=== PATIENT | female | born 1950 | race Caucasian/White ===

== ENCOUNTER 2020-03-03 07:33 | Outpatient (REF) | payer MEDICARE, SELFPAY ==
[2020-03-03 09:16] LABS: MANUAL DIFF FLAG NO
[2020-03-03 09:35] LABS: Basophils Absolute Auto 0.1 X10*3/uL (0.0-0.2); Basophils Percent Auto 0.7 % (0-2); Eosinophils Absolute Auto 1.2 X10*3/uL (0.0-0.4); Eosinophils Percent Auto 14.3 % (0-4); Hematocrit 38.8 % (37-47); Hemoglobin 12.6 g/dl (12.0-16.0); Imm Gran Abs Auto 0.02 X10*3/uL (0.00-0.03); Imm Gran Pct Auto 0.2 % (0.0-0.4); Lymphocytes Absolute Auto 3.5 X10*3/uL (1.2-4.9); Lymphocytes Percent Auto 41.2 % (20-40); Mean Corpuscular HGB Conc 32.5 g/dl (31.0-35.0); Mean Corpuscular Hemoglobin 29.9 pg (27.0-33.0); Mean Corpuscular Volume 91.9 fL (80-98); Mean Platelet Volume 10.4 fL (9.4-12.3); Monocytes Absolute Auto 0.6 X10*3/uL (0.1-1.2); Monocytes Percent Auto 7.3 % (2-11); Neutrophils Absolute Auto 3.1 X10*3/uL (2.0-8.3); Neutrophils Percent Auto 36.3 % (45-73); Platelet Count 238 X10*3/uL (160-400); Red Blood Count 4.22 X10*6/uL (4.20-5.50); Red Cell Distribution Width 13.8 % (11.0-16.0); White Blood Count 8.4 X10*3/uL (4.8-10.8)
[2020-03-03 09:41] LABS: Alanine Aminotransferase 14 U/L (0-31); Albumin Level 4.7 g/dL (3.5-5.0); Alkaline Phosphatase 39 U/L (39-117); Anion Gap 11 (12-20); Aspartate Amino Transferase 19 U/L (5-31); Bilirubin Total 0.2 mg/dL (0.0-1.0); Blood Urea Nitrogen 16 mg/dL (9-16); Calcium 9.7 mg/dL (8.4-10.2); Carbon Dioxide 31 mmol/L (22-29); Chloride 101 mmol/L (96-108); Cholesterol 179 mg/dL; Estimated Glomerular Filt Rate 51; Glucose Fasting 113 mg/dL (60-99); HDL Cholesterol 59 mg/dL; Iron 68 mcg/dL (30-160); LDL Cholesterol Calculated 92 mg/dl; Percent Iron Saturation 18 % (15-50); Potassium 4.3 mmol/l (3.3-5.1); Sodium 139 mmol/L (135-145); Total Iron Binding Capacity 369 mcg/dL (228-428); Total Protein 7.6 g/dL (6.5-8.0); Triglycerides 144 mg/dL; Unsaturated Iron Binding 301 ug/dL
[2020-03-03 09:43] LABS: Glucose Urine UA NEG (NEG); Leukocyte Esterase Urine NEG (NEG); Nitrite Urine NEG (NEG); Urine Blood NEG (NEG); Urine Ketones NEG (NEG); Urine Protein NEG (NEG-TRACE)
[2020-03-03 09:47] LABS: Appearance Urine CLEAR; Color Urine YELLOW
[2020-03-03 09:52] LABS: Free T4 (Free Thyroxine) 0.94 ng/dL (0.71-1.85); Thyroid Stimulating Hormone 2.74 uIU/mL (0.32-4.0); Vitamin D 25-OH Total 30.9 ng/mL (>30)
[2020-03-03 10:03] LABS: Creatinine Urine 42.01 mg/dL; Microalbumin Urine < 5.0 mg/L
[2020-03-03 10:04] LABS: Folate 6.6 ng/mL (> or = 4.0); Vitamin B12 1996 pg/mL (200-900)
== END 2020-03-03 07:34 | disposition home or self-care (01) ==
LOC: HO.LAB 07:33
PROVIDERS: PCP Internal Medicine; Visit Provider Internal Medicine
DX: E11.22 Type 2 diabetes mellitus with diabetic chronic kidney disease (principal); I12.9 Hypertensive chronic kidney disease with stage 1 through stage 4 chronic kidney disease, or unspecified chronic kidney disease; N18.30 Chronic kidney disease, stage 3 unspecified; E78.00 Pure hypercholesterolemia, unspecified; E03.9 Hypothyroidism, unspecified; E66.9 Obesity, unspecified; D50.9 Iron deficiency anemia, unspecified; E53.8 Deficiency of other specified B group vitamins; E55.9 Vitamin D deficiency, unspecified
CPT/HCPCS: 36415; 80053; 80061; 81003; 82043; 82306; 82607; 82746; 83540; 84439; 84443; 85025

== ENCOUNTER 2020-09-02 07:32 | Outpatient (REF) | payer MEDICARE, MEDICAID, SELFPAY ==
[2020-09-02 08:19] LABS: MANUAL DIFF FLAG NO
[2020-09-02 08:31] LABS: Basophils Absolute Auto 0.1 X10*3/uL (0.0-0.2); Basophils Percent Auto 0.7 % (0-2); Eosinophils Absolute Auto 0.7 X10*3/uL (0.0-0.4); Eosinophils Percent Auto 10.5 % (0-4); Hematocrit 35.9 % (37-47); Hemoglobin 11.7 g/dl (12.0-16.0); Imm Gran Abs Auto 0.02 X10*3/uL (0.00-0.03); Imm Gran Pct Auto 0.3 % (0.0-0.4); Lymphocytes Absolute Auto 2.5 X10*3/uL (1.2-4.9); Lymphocytes Percent Auto 37.4 % (20-40); Mean Corpuscular HGB Conc 32.6 g/dl (31.0-35.0); Mean Corpuscular Hemoglobin 30.1 pg (27.0-33.0); Mean Corpuscular Volume 92.3 fL (80-98); Mean Platelet Volume 9.7 fL (9.4-12.3); Monocytes Absolute Auto 0.6 X10*3/uL (0.1-1.2); Monocytes Percent Auto 9.6 % (2-11); Neutrophils Absolute Auto 2.8 X10*3/uL (2.0-8.3); Neutrophils Percent Auto 41.5 % (45-73); Platelet Count 219 X10*3/uL (160-400); Red Blood Count 3.89 X10*6/uL (4.20-5.50); Red Cell Distribution Width 12.9 % (11.0-16.0); White Blood Count 6.7 X10*3/uL (4.8-10.8)
[2020-09-02 08:32] LABS: Glucose Urine UA NEG (NEG); Leukocyte Esterase Urine TRACE (NEG); Nitrite Urine NEG (NEG); PH 6.5 (5.0-8.0); Specific Gravity - Urine <= 1.005 (1.005-1.025); UACC Culture Trigger YES; Urine Blood NEG (NEG); Urine Ketones NEG (NEG); Urine Protein NEG (NEG-TRACE)
[2020-09-02 08:34] LABS: Appearance Urine CLEAR; Color Urine YELLOW
[2020-09-02 08:52] LABS: RBC Urine 0 /HPF (0); WBC Urine 0-2 /HPF (0-4)
[2020-09-02 09:08] LABS: Creatinine Urine 60.92 mg/dL; Microalbumin Urine < 5.0 mg/L
[2020-09-02 09:13] LABS: Free T4 (Free Thyroxine) 1.05 ng/dL (0.71-1.85); Thyroid Stimulating Hormone 0.68 uIU/mL (0.32-4.0); Vitamin D 25-OH Total 26.7 ng/mL (>30)
[2020-09-02 09:27] LABS: Alanine Aminotransferase 17 U/L (0-31); Albumin Level 4.3 g/dL (3.5-5.0); Alkaline Phosphatase 39 U/L (39-117); Anion Gap 12 (12-20); Aspartate Amino Transferase 23 U/L (5-31); Bilirubin Total < 0.2 mg/dL (0.0-1.0); Blood Urea Nitrogen 15 mg/dL (9-16); Calcium 9.4 mg/dL (8.4-10.2); Carbon Dioxide 28 mmol/L (22-29); Chloride 105 mmol/L (96-108); Cholesterol 174 mg/dL; Estimated Glomerular Filt Rate 51; Glucose Fasting 129 mg/dL (60-99); HDL Cholesterol 53 mg/dL; LDL Cholesterol Calculated 93 mg/dl; Potassium 4.8 mmol/L (3.3-5.1); Sodium 140 mmol/L (135-145); Total Protein 6.8 g/dL (6.5-8.0); Triglycerides 143 mg/dL
== END 2020-09-02 07:33 | disposition home or self-care (01) ==
LOC: HO.LAB 07:32
PROVIDERS: PCP Internal Medicine; Visit Provider Internal Medicine
DX: I12.9 Hypertensive chronic kidney disease with stage 1 through stage 4 chronic kidney disease, or unspecified chronic kidney disease (principal); E11.22 Type 2 diabetes mellitus with diabetic chronic kidney disease; N18.30 Chronic kidney disease, stage 3 unspecified; D50.9 Iron deficiency anemia, unspecified; E53.8 Deficiency of other specified B group vitamins; E78.00 Pure hypercholesterolemia, unspecified; E03.9 Hypothyroidism, unspecified; E66.9 Obesity, unspecified
CPT/HCPCS: 36415; 80053; 80061; 81001; 81003; 82043; 82306; 84439; 84443; 85025; 87086

== ENCOUNTER 2020-12-03 07:23 | Outpatient (REF) | payer MEDICARE, MEDICAID, SELFPAY ==
[2020-12-03 07:55] LABS: MANUAL DIFF FLAG NO
[2020-12-03 08:05] LABS: Estimated Average Glucose 117 mg/dL; Hemoglobin A1c % 5.7 %
[2020-12-03 08:07] LABS: Basophils Absolute Auto 0.1 X10*3/uL (0.0-0.2); Basophils Percent Auto 0.9 % (0-2); Eosinophils Absolute Auto 0.8 X10*3/uL (0.0-0.4); Eosinophils Percent Auto 11.3 % (0-4); Hematocrit 35.8 % (37-47); Imm Gran Abs Auto 0.01 X10*3/uL (0.00-0.03); Imm Gran Pct Auto 0.1 % (0.0-0.4); Lymphocytes Absolute Auto 3.2 X10*3/uL (1.2-4.9); Lymphocytes Percent Auto 45.9 % (20-40); Mean Corpuscular HGB Conc 33.5 g/dl (31.0-35.0); Mean Corpuscular Hemoglobin 30.6 pg (27.0-33.0); Mean Corpuscular Volume 91.3 fL (80-98); Mean Platelet Volume 9.6 fL (9.4-12.3); Monocytes Absolute Auto 0.5 X10*3/uL (0.1-1.2); Monocytes Percent Auto 7.1 % (2-11); Neutrophils Absolute Auto 2.4 X10*3/uL (2.0-8.3); Neutrophils Percent Auto 34.7 % (45-73); Platelet Count 219 X10*3/uL (160-400); Red Blood Count 3.92 X10*6/uL (4.20-5.50); Red Cell Distribution Width 13.2 % (11.0-16.0); White Blood Count 6.9 X10*3/uL (4.8-10.8)
[2020-12-03 08:19] LABS: Alanine Aminotransferase 15 U/L (0-31); Albumin Level 4.4 g/dL (3.5-5.0); Alkaline Phosphatase 36 U/L (39-117); Anion Gap 11 (12-20); Aspartate Amino Transferase 20 U/L (5-31); Bilirubin Total 0.2 mg/dL (0.0-1.0); Blood Urea Nitrogen 17 mg/dL (9-16); Calcium 9.7 mg/dL (8.4-10.2); Carbon Dioxide 30 mmol/L (22-29); Chloride 105 mmol/L (96-108); Cholesterol 183 mg/dL; Estimated Glomerular Filt Rate 46; Glucose Fasting 115 mg/dL (60-99); HDL Cholesterol 49 mg/dL; LDL Cholesterol Calculated 101 mg/dl; Potassium 4.7 mmol/L (3.3-5.1); Sodium 141 mmol/L (135-145); Triglycerides 166 mg/dL
[2020-12-03 08:43] LABS: Free T4 (Free Thyroxine) 0.93 ng/dL (0.71-1.85); Vitamin D 25-OH Total 28.3 ng/mL (>30)
[2020-12-03 08:56] LABS: Folate 8.4 ng/mL (> or = 4.0); Vitamin B12 1914 pg/mL (200-900)
[2020-12-03 09:09] LABS: Erythrocyte Sedimentation Rate 16 MM/HR (0-20)
[2020-12-03 10:01] LABS: Appearance Urine CLEAR; Color Urine YELLOW; Glucose Urine UA NEG (NEG); Leukocyte Esterase Urine 1+ (NEG); Nitrite Urine NEG (NEG); PH 6.5 (5.0-8.0); UACC Culture Trigger YES; Urine Blood NEG (NEG); Urine Ketones NEG (NEG); Urine Protein NEG (NEG-TRACE)
[2020-12-03 10:16] LABS: Creatinine Urine 67.59 mg/dL; Microalbumin Urine < 5.0 mg/L
[2020-12-03 10:20] LABS: RBC Urine 0 /HPF (0); Squamous Epithelial Cell Urine 1+ /LPF; WBC Urine 0-2 /HPF (0-4)
[2020-12-03 10:21] LABS: Bacteria Urine TRACE /LPF; Mucus Urine 1+ /LPF
== END 2020-12-03 07:24 | disposition home or self-care (01) ==
LOC: HO.LAB 07:23
PROVIDERS: Nurse Practitioner Family; PCP Internal Medicine; Visit Provider Internal Medicine
DX: E78.00 Pure hypercholesterolemia, unspecified (principal); E11.21 Type 2 diabetes mellitus with diabetic nephropathy; I12.9 Hypertensive chronic kidney disease with stage 1 through stage 4 chronic kidney disease, or unspecified chronic kidney disease; N18.31 Chronic kidney disease, stage 3a; E11.22 Type 2 diabetes mellitus with diabetic chronic kidney disease; D50.9 Iron deficiency anemia, unspecified; E53.8 Deficiency of other specified B group vitamins; E55.9 Vitamin D deficiency, unspecified; E03.9 Hypothyroidism, unspecified; E66.9 Obesity, unspecified; R22.0 Localized swelling, mass and lump, head
CPT/HCPCS: 36415; 80053; 80061; 81001; 81003; 82043; 82306; 82607; 82746; 83036; 84439; 84443; 85025; 85652; 87086

== ENCOUNTER 2021-01-06 10:15 | Outpatient (REF) | payer MEDICARE, MEDICAID, SELFPAY ==
--- NOTE | ~2021-01-06 | MM_ITS ---
EXAMINATION: MM SCREENING DIGITAL BREAST TOMOSYNTHESIS, BILATERAL CLINICAL INFORMATION: Screening. Asymptomatic. The lifetime risk of breast cancer based on the Tyrer-Cuzick Model is 4%. COMPARISON: Mammography: 03/05/2019, 01/21/2016, 10/22/2014 TECHNIQUE: Digital breast tomosynthesis is performed in both the craniocaudal and mediolateral oblique views along with computer-aided detection (CAD). Synthesized 2D images are generated from the tomosynthesis. FINDINGS: There are scattered areas of fibroglandular density (ACR BI-RADS breast composition Category b). There are no significant masses, abnormal calcifications, or other abnormalities. Parenchymal pattern is similar to prior exams. There is no developing density. No significant changes. MM/MM tomosynthesis screening BI IMPRESSION: No mammographic evidence of malignancy. ASSESSMENT: BI-RADS 1: Negative RECOMMENDATION: Routine annual mammography screening. This patient's information was entered into a reminder system with a target due date for their next mammogram.
--- NOTE | ~2021-01-06 | MM_ITS ---
EXAMINATION: BONE DENSITOMETRY CLINICAL INDICATION: Asymptomatic menopausal state. COMPARISON: None (current study represents initial baseline exam). TECHNIQUE: Using a [employer] DXA System (software version: 13.1) manufactured by [employer], dual-energy x-ray absorptiometry was performed of the lumbar spine and left hip. The images are of good technical quality. Summary results are attached. FINDINGS: AP SPINE L1-L4: BMD 1.488 g/cm2, Z-score 4.0, T-score 2.6, normal. LEFT FEMUR, NECK: BMD 0.996 g/cm2, Z-score 1.3, T-score -0.3, normal. LEFT FEMUR, TOTAL: BMD 1.153 g/cm2, Z-score 2.5, T-score 1.2, normal. IDENTIFIED RISK FACTORS: Early menopause, secondary osteoporosis. HISTORY OF FRACTURE: None listed. MEDICATIONS: Calcium supplements or multivitamin, vitamin D. MM/XR DEXA axial skeleton IMPRESSION: 1. DIAGNOSIS: Normal bone density based on the lowest T-score value of -0.3 in the femoral neck applying World Health Organization criteria. 2. 10-YEAR FRACTURE RISK PREDICTION, FRAX: Major osteoporotic fracture (clinical spine, forearm, hip or shoulder) 4.0%. Hip fracture 0.3%. 3. Treatment Recommendations: NOF guidelines recommend consideration for treatment in postmenopausal women and men age 50 and older presenting with the following: -A hip or vertebral (clinical or morphometric) fracture. -T-score less than or equal to -2.5 at the femoral neck or spine after appropriate evaluation to exclude secondary causes. -Low bone mass at the hip or spine and a 10-year fracture probability by FRAX of greater than or equal to 3% for hip fracture or greater than or equal to 20% for major osteoporotic fracture based on the [place] adapted WHO algorithm. 4. Other Recommendations: All treatment decisions require clinical judgment and consideration of individual patient factors, including patient preferences, comorbidities, previous drug use, risk factors not captured in the FRAX model (e.g. frailty, falls, vitamin D deficiency, increased bone turnover, interval significant decline in bone density) and possible under or overestimation of fracture risk by FRAX. FUTURE SCAN RECOMMENDATION: People with diagnosed cases of osteoporosis or at high risk for fracture should have regular bone mineral density tests. For patients eligible for Medicare, routine testing is allowed once every 2 years. The testing frequency can be increased to one year for patients who have rapidly progressing disease, those who are receiving or discontinuing medical therapy to restore bone mass, or have additional risk factors.
== END 2021-01-06 10:16 | disposition home or self-care (01) ==
LOC: HO.MAMMO 10:15
PROVIDERS: Visit Provider Internal Medicine
DX: Z13.820 Encounter for screening for osteoporosis (principal); Z78.0 Asymptomatic menopausal state; Z12.31 Encounter for screening mammogram for malignant neoplasm of breast
CPT/HCPCS: 77063; 77067; 77080

== ENCOUNTER 2021-03-11 08:33 | Outpatient (REF) | payer MEDICARE, MEDICAID, SELFPAY ==
[2021-03-11 08:57] LABS: MANUAL DIFF FLAG NO
[2021-03-11 09:58] LABS: Basophils Absolute Auto 0.1 X10*3/uL (0.0-0.2); Basophils Percent Auto 0.9 % (0-2); Eosinophils Absolute Auto 0.7 X10*3/uL (0.0-0.4); Eosinophils Percent Auto 11.2 % (0-4); Hemoglobin 12.4 g/dl (12.0-16.0); Imm Gran Abs Auto 0.02 X10*3/uL (0.00-0.03); Imm Gran Pct Auto 0.3 % (0.0-0.4); Lymphocytes Absolute Auto 2.6 X10*3/uL (1.2-4.9); Lymphocytes Percent Auto 39.8 % (20-40); Mean Corpuscular HGB Conc 32.6 g/dl (31.0-35.0); Mean Corpuscular Hemoglobin 29.7 pg (27.0-33.0); Mean Corpuscular Volume 91.1 fL (80.0-98.0); Mean Platelet Volume 10.1 fL (9.4-12.3); Monocytes Absolute Auto 0.6 X10*3/uL (0.1-1.2); Monocytes Percent Auto 8.7 % (2-11); Neutrophils Absolute Auto 2.5 x10*3/uL (2.0-8.3); Neutrophils Percent Auto 39.1 % (45-73); Platelet Count 229 X10*3/uL (160-400); Red Blood Count 4.17 X10*6/uL (4.20-5.50); Red Cell Distribution Width 12.5 % (11.0-16.0); White Blood Count 6.5 X10*3/uL (4.8-10.8)
[2021-03-11 10:11] LABS: Estimated Average Glucose 123 mg/dL; Hemoglobin A1c % 5.9 %
[2021-03-11 10:30] LABS: Alanine Aminotransferase 17 U/L (0-31); Albumin Level 4.4 g/dL (3.5-5.0); Alkaline Phosphatase 39 U/L (39-117); Anion Gap 12 (12-20); Aspartate Amino Transferase 22 U/L (5-31); Bilirubin Total 0.3 mg/dL (0.0-1.0); Blood Urea Nitrogen 17 mg/dL (9-16); Calcium 9.7 mg/dL (8.4-10.2); Carbon Dioxide 29 mmol/L (22-29); Chloride 104 mmol/L (96-108); Cholesterol 188 mg/dL; Estimated Glomerular Filt Rate 49; Glucose Fasting 125 mg/dL (60-99); HDL Cholesterol 58 mg/dL; LDL Cholesterol Calculated 97 mg/dl; Potassium 4.7 mmol/L (3.3-5.1); Sodium 140 mmol/L (135-145); Total Protein 7.2 g/dL (6.5-8.0); Triglycerides 165 mg/dL
[2021-03-11 10:41] LABS: Appearance Urine CLEAR; Color Urine YELLOW; Glucose Urine UA NEG (NEG); Leukocyte Esterase Urine 1+ (NEG); Nitrite Urine NEG (NEG); Specific Gravity - Urine 1.025 (1.005-1.025); UACC Culture Trigger YES; Urine Blood TRACE (NEG); Urine Ketones NEG (NEG); Urine Protein NEG (NEG-TRACE)
[2021-03-11 10:50] LABS: Free T4 (Free Thyroxine) 0.89 ng/dL (0.71-1.85); Thyroid Stimulating Hormone 1.07 uIU/mL (0.32-4.0); Vitamin D 25-OH Total 24.5 ng/mL (>30)
[2021-03-11 11:19] LABS: RBC Urine 0 /HPF (0); WBC Urine 0-2 /HPF (0-4)
[2021-03-11 11:20] LABS: Squamous Epithelial Cell Urine 1+ /LPF
[2021-03-11 11:27] LABS: Creatinine Urine 167.63 mg/dL; Microalbum/Creatinine Ratio Ur 5.3 ug/mg cr
== END 2021-03-11 08:34 | disposition home or self-care (01) ==
LOC: HO.LAB 08:33
PROVIDERS: PCP Internal Medicine; Visit Provider Internal Medicine
DX: E03.9 Hypothyroidism, unspecified (principal); E55.9 Vitamin D deficiency, unspecified; I10 Essential (primary) hypertension; E78.00 Pure hypercholesterolemia, unspecified; E11.9 Type 2 diabetes mellitus without complications
CPT/HCPCS: 36415; 80053; 80061; 81001; 81003; 82043; 82306; 83036; 84439; 84443; 85025; 87086; 87088; 87186

== ENCOUNTER 2021-03-24 09:35 | Outpatient (REF) | payer MEDICARE, MEDICAID, SELFPAY ==
--- NOTE | ~2021-03-24 | XR_ITS ---
EXAMINATION: XR SHOULDER, LEFT CLINICAL INFORMATION: Pain in left shoulder. COMPARISON: None TECHNIQUE: AP external rotation, Grashey, scapular Y, and axillary views of the left shoulder. FINDINGS: There is no fracture or malalignment. There are small marginal osteophytes in the inferior glenohumeral joint. There is no joint space narrowing. There is a cortical defect in the greater tuberosity with an adjacent subchondral degenerative cyst. There is mild osteoarthritis of the acromioclavicular joint. 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 Degenerative changes in the greater tuberosity.
--- NOTE | ~2021-03-24 | XR_ITS ---
EXAMINATION: XR LUMBOSACRAL SPINE CLINICAL INFORMATION: Low back pain. COMPARISON: None TECHNIQUE: AP and lateral views of the lumbosacral spine are obtained. A lateral coned-down view of the lumbosacral junction is obtained. FINDINGS: There is no acute fracture or subluxation. There is mild multilevel degenerative disc disease. There are small anterior marginal osteophytes from L2 to S1. There is mild disc space narrowing at L3-L4. There is mild bilateral facet arthropathy in the lower lumbar levels. There are scattered calcifications in the abdominal aorta. There is no definite aneurysmal dilatation. XR/XR lumbar spine 2-3V IMPRESSION: Mild multilevel degenerative disc disease.
== END 2021-03-24 09:36 | disposition home or self-care (01) ==
LOC: HO.XRAY 09:35
PROVIDERS: PCP Internal Medicine; Visit Provider Internal Medicine
DX: M25.512 Pain in left shoulder (principal); M54.50 Low back pain, unspecified
CPT/HCPCS: 72100; 73030

== ENCOUNTER 2021-04-20 10:14 | Outpatient (REF) | payer MEDICARE, MEDICAID, SELFPAY ==
--- NOTE | ~2021-04-20 | MR_ITS ---
EXAMINATION: MRI SHOULDER WITHOUT CONTRAST, LEFT CLINICAL INFORMATION: Left shoulder pain and decreased range of motion. COMPARISON: Left shoulder radiographs dated 03/24/2021. TECHNIQUE: Multisequence MR imaging of the left shoulder was obtained without contrast on a high-field strength scanner. FINDINGS: ROTATOR CUFF: Supraspinatus tendinosis with focal anterior articular surface partial tearing measuring 0.5 x 0.5 cm (AP by ML). Posterior bursal surface partial tearing measuring 0.9 x 0.8 cm (AP by ML). Distal bursal surface partial tearing extends to the anterior aspect of the infraspinatus tendon. No definite full-thickness rotator cuff tendon defect. No muscle atrophy or fatty infiltration. BICEPS: Normal. CORACOACROMIAL ARCH: The undersurface of the acromion is flat with lateral downsloping and tiny subacromial spurs. Mild acromioclavicular osteoarthritis. Mild fluid within the subacromial-subdeltoid bursa, consistent with mild bursitis. LABRUM/CAPSULE: Normal. GLENOHUMERAL JOINT/MARROW: Small glenohumeral joint effusion. MR/MR shoulder LT wo con IMPRESSION: 1. Supraspinatus tendinosis with anterior articular surface partial tearing measuring 0.5 x 0.5 cm. Posterior bursal surface partial tearing measuring 0.9 x 0.8 cm with extension to the anterior aspect of the infraspinatus tendon. No full-thickness rotator cuff tendon defect. 2. Mild acromioclavicular osteoarthritis with lateral downsloping of the acromion and tiny subacromial spurs. 3. Mild subacromial-subdeltoid bursitis. 4. Small glenohumeral joint effusion.
== END 2021-04-20 10:15 | disposition home or self-care (01) ==
LOC: HO.MRI 10:14
PROVIDERS: PCP Internal Medicine; Visit Provider Nurse Practitioner Acute Care
DX: M25.512 Pain in left shoulder (principal)
CPT/HCPCS: 73221

== ENCOUNTER → 2021-05-13 09:43 | Outpatient (BNVA) | payer MEDICARE, MEDICAID, SELFPAY | PROVIDERS: PCP Internal Medicine; Visit Provider Physician Assistant | DX: M19.012 Primary osteoarthritis, left shoulder (principal) | CPT/HCPCS: 99202 ==

== ENCOUNTER 2021-07-22 07:20 | Outpatient (REF) | payer MEDICARE, MEDICAID, SELFPAY ==
[2021-07-22 07:39] LABS: MANUAL DIFF FLAG NO
[2021-07-22 08:03] LABS: Basophils Absolute Auto 0.1 X10*3/uL (0.0-0.2); Eosinophils Absolute Auto 0.8 X10*3/uL (0.0-0.4); Eosinophils Percent Auto 11.5 % (0-4); Hematocrit 36.2 % (37.0-47.0); Hemoglobin 11.9 g/dl (12.0-16.0); Imm Gran Abs Auto 0.02 X10*3/uL (0.00-0.03); Imm Gran Pct Auto 0.3 % (0.0-0.4); Lymphocytes Absolute Auto 3.3 X10*3/uL (1.2-4.9); Lymphocytes Percent Auto 46.6 % (20-40); Mean Corpuscular HGB Conc 32.9 g/dl (31.0-35.0); Mean Corpuscular Hemoglobin 29.7 pg (27.0-33.0); Mean Corpuscular Volume 90.3 fL (80.0-98.0); Mean Platelet Volume 9.7 fL (9.4-12.3); Monocytes Absolute Auto 0.5 X10*3/uL (0.1-1.2); Monocytes Percent Auto 6.6 % (2-11); Neutrophils Absolute Auto 2.4 x10*3/uL (2.0-8.3); Platelet Count 226 X10*3/uL (160-400); Red Blood Count 4.01 X10*6/uL (4.20-5.50); Red Cell Distribution Width 12.9 % (11.0-16.0); White Blood Count 7.1 X10*3/uL (4.8-10.8)
[2021-07-22 08:13] LABS: Estimated Average Glucose 117 mg/dL; Hemoglobin A1c % 5.7 %
[2021-07-22 08:19] LABS: Appearance Urine CLEAR; Color Urine STRAW; Glucose Urine UA NEG (NEG); Leukocyte Esterase Urine TRACE (NEG); Nitrite Urine NEG (NEG); PH 6.5 (5.0-8.0); Specific Gravity - Urine <= 1.005 (1.005-1.025); UACC Culture Trigger YES; Urine Blood NEG (NEG); Urine Ketones NEG (NEG); Urine Protein NEG (NEG-TRACE)
[2021-07-22 08:27] LABS: Alanine Aminotransferase 14 U/L (0-31); Albumin Level 4.1 g/dL (3.5-5.0); Alkaline Phosphatase 35 U/L (39-117); Anion Gap 13 (12-20); Aspartate Amino Transferase 20 U/L (5-31); Bilirubin Total 0.2 mg/dL (0.0-1.0); Blood Urea Nitrogen 14 mg/dL (9-16); Calcium 9.3 mg/dL (8.4-10.2); Carbon Dioxide 28 mmol/L (22-29); Chloride 104 mmol/L (96-108); Cholesterol 185 mg/dL; Estimated Glomerular Filt Rate 51; Glucose Fasting 116 mg/dL (60-99); HDL Cholesterol 53 mg/dL; LDL Cholesterol Calculated 101 mg/dl; Potassium 4.5 mmol/L (3.3-5.1); Sodium 140 mmol/L (135-145); Total Protein 6.7 g/dL (6.5-8.0); Triglycerides 159 mg/dL
[2021-07-22 08:39] LABS: Creatinine Urine 56.47 mg/dL; Microalbumin Urine < 5.0 mg/L
[2021-07-22 08:47] LABS: TSH reflex Free T4 0.62 uIU/mL (0.32-4.0); Vitamin D 25-OH Total 40.6 ng/mL (>30)
[2021-07-22 08:48] LABS: RBC Urine 0 /HPF (0); Squamous Epithelial Cell Urine TRACE /LPF; WBC Urine 0-2 /HPF (0-4)
[2021-07-22 09:08] LABS: Folate 5.6 ng/mL (> or = 4.0); Vitamin B12 1727 pg/mL (200-900)
== END 2021-07-22 07:21 | disposition home or self-care (01) ==
LOC: HO.LAB 07:20
PROVIDERS: PCP Internal Medicine; Visit Provider Internal Medicine
DX: E78.00 Pure hypercholesterolemia, unspecified (principal); E11.9 Type 2 diabetes mellitus without complications; E55.9 Vitamin D deficiency, unspecified; E53.8 Deficiency of other specified B group vitamins; I10 Essential (primary) hypertension
CPT/HCPCS: 36415; 80053; 80061; 81001; 82043; 82306; 82607; 82746; 83036; 84443; 85025; 87086

== ENCOUNTER 2021-11-01 10:37 | Outpatient (REF) | payer MEDICARE, MEDICAID, SELFPAY ==
--- NOTE | 2021-11-01 10:54 | ECG_ITS ---
Test Reason : PRE-OP Blood Pressure : / mmHG Vent. Rate : 073 BPM Atrial Rate : 073 BPM P-R Int : 142 ms QRS Dur : 084 ms QT Int : 376 ms P-R-T Axes : 069 050 080 degrees QTc Int : 414 ms Normal sinus rhythm Nonspecific ST and T wave abnormality Abnormal ECG When compared with ECG of 17-MAY-2013 00:00, No significant change was found Referred By: Jenny Downey Electronically Signed By:DAYSI REA
[2021-11-01 11:32] LABS: Hematocrit 37.2 % (37.0-47.0); Hemoglobin 12.3 g/dl (12.0-16.0); Mean Corpuscular HGB Conc 33.1 g/dl (31.0-35.0); Mean Corpuscular Hemoglobin 30.3 pg (27.0-33.0); Mean Corpuscular Volume 91.6 fL (80.0-98.0); Mean Platelet Volume 10.1 fL (9.4-12.3); Platelet Count 226 X10*3/uL (160-400); Red Blood Count 4.06 X10*6/uL (4.20-5.50); Red Cell Distribution Width 12.9 % (11.0-16.0); White Blood Count 8.2 X10*3/uL (4.8-10.8)
[2021-11-01 11:39] LABS: INTERNATIONAL NORM RATIO 0.8 (0.9-1.1); Prothrombin Time 9.6 SEC (10.0-13.1)
[2021-11-01 11:49] LABS: Anion Gap 13 (12-20); Blood Urea Nitrogen 17 mg/dL (9-16); Calcium 9.3 mg/dL (8.4-10.2); Carbon Dioxide 24 mmol/L (22-29); Chloride 109 mmol/L (96-108); Estimated Glomerular Filt Rate 48; Glucose Random 82 mg/dL (60-115); Potassium 4.6 mmol/L (3.3-5.1); Sodium 141 mmol/L (135-145)
== END 2021-11-01 10:38 | disposition home or self-care (01) ==
LOC: HO.LAB 10:37
PROVIDERS: PCP Nurse Practitioner Family; Visit Provider Internal Medicine
DX: Z01.818 Encounter for other preprocedural examination (principal)
CPT/HCPCS: 36415; 80048; 85027; 85610; 93005

== ENCOUNTER 2022-05-22 08:11 | Outpatient (REF) | payer OTHER, SELFPAY ==
[2022-05-22 08:21] LABS: MANUAL DIFF FLAG NO
[2022-05-22 08:34] LABS: Basophils Absolute Auto 0.1 X10*3/uL (0.0-0.2); Basophils Percent Auto 0.9 % (0-2); Eosinophils Absolute Auto 0.8 X10*3/uL (0.0-0.4); Eosinophils Percent Auto 9.8 % (0-4); Hematocrit 36.9 % (37.0-47.0); Hemoglobin 12.2 g/dl (12.0-16.0); Imm Gran Abs Auto 0.02 X10*3/uL (0.00-0.03); Imm Gran Pct Auto 0.3 % (0.0-0.4); Lymphocytes Percent Auto 38.3 % (20-40); Mean Corpuscular HGB Conc 33.1 g/dl (31.0-35.0); Mean Corpuscular Hemoglobin 29.7 pg (27.0-33.0); Mean Corpuscular Volume 89.8 fL (80.0-98.0); Mean Platelet Volume 9.5 fL (9.4-12.3); Monocytes Absolute Auto 0.6 X10*3/uL (0.1-1.2); Monocytes Percent Auto 7.7 % (2-11); Neutrophils Absolute Auto 3.4 x10*3/uL (2.0-8.3); Platelet Count 212 X10*3/uL (160-400); Red Blood Count 4.11 X10*6/uL (4.20-5.50); Red Cell Distribution Width 12.4 % (11.0-16.0); White Blood Count 7.9 X10*3/uL (4.8-10.8)
[2022-05-22 08:38] LABS: Estimated Average Glucose 114 mg/dL; Hemoglobin A1c % 5.6 %
[2022-05-22 09:08] LABS: Alanine Aminotransferase 12 U/L (0-31); Albumin Level 4.2 g/dL (3.5-5.0); Alkaline Phosphatase 38 U/L (39-117); Anion Gap 12 (12-20); Aspartate Amino Transferase 18 U/L (5-31); Bilirubin Total 0.4 mg/dL (0.0-1.0); Blood Urea Nitrogen 20 mg/dL (9-16); Calcium 9.6 mg/dL (8.4-10.2); Carbon Dioxide 28 mmol/L (22-29); Chloride 105 mmol/L (96-108); Cholesterol 182 mg/dL; Estimated Glomerular Filt Rate 51; Glucose Fasting 116 mg/dL (60-99); HDL Cholesterol 52 mg/dL; LDL Cholesterol Calculated 101 mg/dl; Potassium 4.1 mmol/L (3.3-5.1); Sodium 141 mmol/L (135-145); Total Protein 6.5 g/dL (6.5-8.0); Triglycerides 145 mg/dL
[2022-05-22 09:27] LABS: Free T4 (Free Thyroxine) 1.13 ng/dL (0.71-1.85); Thyroid Stimulating Hormone 0.64 uIU/mL (0.32-4.0); Vitamin D 25-OH Total 55.4 ng/mL (>30)
[2022-05-22 09:34] LABS: Appearance Urine Clear; Color Urine Yellow; Glucose Urine UA Negative (Negative); Leukocyte Esterase Urine Negative (Negative); Nitrite Urine Negative (Negative); Urine Blood Negative (Negative); Urine Ketones Negative (Negative); Urine Protein Negative (Neg-Trace)
[2022-05-22 09:57] LABS: Creatinine Urine 52.59 mg/dL; Microalbumin Urine < 5.0 mg/L
== END 2022-05-22 08:12 | disposition home or self-care (01) ==
LOC: HO.LAB 08:11
PROVIDERS: PCP Internal Medicine; Visit Provider Internal Medicine
DX: E03.9 Hypothyroidism, unspecified (principal); E11.9 Type 2 diabetes mellitus without complications; I10 Essential (primary) hypertension; E55.9 Vitamin D deficiency, unspecified; E78.00 Pure hypercholesterolemia, unspecified
CPT/HCPCS: 36415; 80053; 80061; 81003; 82043; 82306; 83036; 84439; 84443; 85025

== ENCOUNTER 2022-09-23 07:35 | Outpatient (REF) | payer OTHER, SELFPAY ==
[2022-09-23 08:20] LABS: MANUAL DIFF FLAG NO
[2022-09-23 08:30] LABS: Basophils Absolute Auto 0.1 X10*3/uL (0.0-0.2); Basophils Percent Auto 0.9 % (0-2); Eosinophils Absolute Auto 0.7 X10*3/uL (0.0-0.4); Eosinophils Percent Auto 11.1 % (0-4); Hematocrit 35.8 % (37.0-47.0); Hemoglobin 11.9 g/dl (12.0-16.0); Imm Gran Abs Auto 0.01 X10*3/uL (0.00-0.03); Imm Gran Pct Auto 0.2 % (0.0-0.4); Lymphocytes Absolute Auto 2.5 X10*3/uL (1.2-4.9); Lymphocytes Percent Auto 38.6 % (20-40); Mean Corpuscular HGB Conc 33.2 g/dl (31.0-35.0); Mean Corpuscular Hemoglobin 30.6 pg (27.0-33.0); Mean Platelet Volume 9.5 fL (9.4-12.3); Monocytes Absolute Auto 0.6 X10*3/uL (0.1-1.2); Neutrophils Absolute Auto 2.6 x10*3/uL (2.0-8.3); Neutrophils Percent Auto 40.2 % (45-73); Platelet Count 219 X10*3/uL (160-400); Red Blood Count 3.89 X10*6/uL (4.20-5.50); Red Cell Distribution Width 13.1 % (11.0-16.0); White Blood Count 6.4 X10*3/uL (4.8-10.8)
[2022-09-23 08:40] LABS: Estimated Average Glucose 114 mg/dL; Hemoglobin A1c % 5.6 %
[2022-09-23 09:09] LABS: Alanine Aminotransferase 12 U/L (0-31); Albumin Level 4.2 g/dL (3.5-5.0); Alkaline Phosphatase 34 U/L (39-117); Anion Gap 10 (12-20); Aspartate Amino Transferase 18 U/L (5-31); Bilirubin Total 0.4 mg/dL (0.0-1.0); Blood Urea Nitrogen 18 mg/dL (9-16); Calcium 9.6 mg/dL (8.4-10.2); Carbon Dioxide 27 mmol/L (22-29); Chloride 106 mmol/L (96-108); Cholesterol 159 mg/dL; Estimated Glomerular Filt Rate 52; Glucose Fasting 120 mg/dL (60-99); HDL Cholesterol 50 mg/dL; LDL Cholesterol Calculated 90 mg/dl; Potassium 4.1 mmol/L (3.3-5.1); Sodium 139 mmol/L (135-145); Total Protein 7.1 g/dL (6.5-8.0); Triglycerides 96 mg/dL
[2022-09-23 09:26] LABS: Free T4 (Free Thyroxine) 1.09 ng/dL (0.71-1.85); Thyroid Stimulating Hormone 0.66 uIU/mL (0.32-4.0); Vitamin D 25-OH Total 75.6 ng/mL (>30)
[2022-09-23 09:34] LABS: Folate 6.1 ng/mL (> or = 4.0); Vitamin B12 > 2000 pg/mL (200-900)
[2022-09-23 09:46] LABS: Appearance Urine Clear; Color Urine Yellow; Glucose Urine UA Negative (Negative); Leukocyte Esterase Urine Small (1+) (Negative); Nitrite Urine Negative (Negative); PH 5.5 (5.0-9.0); Specific Gravity - Urine 1.015 (1.005-1.025); UMIC TRIGGER UACC YES; Urine Blood Negative (Negative); Urine Ketones Negative (Negative); Urine Protein Negative (Neg-Trace)
[2022-09-23 09:56] LABS: Bacteria Urine None Seen (None Seen); Hyaline Casts Urine 0-2 /LPF (0-2); RBC Urine 0-2 /HPF (0-2); Squamous Epithelial Cell Urine 0-2 /HPF (0-2); UACC Culture Trigger YES; WBC Urine 0-5 /HPF (0-5)
[2022-09-23 10:24] LABS: Creatinine Urine 110.86 mg/dL; Microalbum/Creatinine Ratio Ur 6.3 ug/mg cr
== END 2022-09-23 07:36 | disposition home or self-care (01) ==
LOC: HO.LAB 07:35
PROVIDERS: PCP Internal Medicine; Visit Provider Internal Medicine
DX: I10 Essential (primary) hypertension (principal); E11.9 Type 2 diabetes mellitus without complications; E55.9 Vitamin D deficiency, unspecified; E03.9 Hypothyroidism, unspecified; E53.8 Deficiency of other specified B group vitamins; E78.00 Pure hypercholesterolemia, unspecified; R82.90 Unspecified abnormal findings in urine
CPT/HCPCS: 36415; 80053; 80061; 81001; 82043; 82306; 82607; 82746; 83036; 84439; 84443; 85025; 87086

== ENCOUNTER 2023-01-10 16:13 | Outpatient (AMB) | payer OTHER, SELFPAY ==
--- NOTE | 2023-01-10 16:14 | MHC.PC.OV ---
Vital Signs 01/10/23 16:15 Height 4 ft 9 in Weight 152 lb BMI 32.9 BP 116/78 Blood Pressure Location Lt brachial Position Sitting Pulse 83 Pulse Source Pulse Oximeter Pulse Oximetry (%) 96 Oxygen Delivery Method Room Air Intake Visit Reasons: follow up [employer] Required: No Accompanied by: Self / Same As Patient Allergies ibuprofen [IBUPROFEN] Allergy (Unknown, Verified 01/10/23 16:34) swelling BuPROPion HCl Allergy (Unknown, Uncoded 01/10/23 16:34) unknown Cortisone Allergy (Unknown, Uncoded 01/10/23 16:34) Unknown Medication List - Last Reconciled 01/10/23 by Rahul Beaulieu MD cetirizine (Zyrtec) 10 mg PO DAILY PRN 90 days cholecalciferol (vitamin D3) 50 mcg PO DAILY 90 days cyanocobalamin (vitamin B-12) 500 mcg PO DAILY dextromethorphan-guaifenesin 30-600 mg (Mucinex DM) 1 tab PO Q12H PRN 15 days diclofenac sodium 1% (Voltaren Arthritis Pain) 4 grams topical QID enalapril maleate 2.5 mg PO DAILY 90 days ferrous sulfate 325 mg PO DAILY fluticasone propionate 50 mcg/actuation 1 spray intranasal DAILY 30 days levothyroxine 100 mcg PO DAILY 90 days lidocaine 5% 1 patch topical DAILY linagliptin-metformin 2.5-500 mg (Jentadueto) 1 tab PO BID lovastatin 40 mg PO DAILY 90 days naproxen 500 mg PO BID PRN 30 days omeprazole 20 mg PO DAILY 30 days sertraline 200 mg (2 x 100 mg) PO DAILY tramadol 50 mg PO Q12H PRN 30 days trazodone 200 mg (2 x 100 mg) PO BEDTIME PRN 90 days Tobacco use date assessed: 01/10/23 Fall risk assessment: No Falls in past year Last assessed Fall Risk: 01/10/23 Dental Screening Dental Screen Date: 01/10/23 Did you have a dental visit in the last 12 months?: No Did you have a dental problem in the last 6 months where you did not have access to dental care?: No Was dental information given to patient?: No HPI follow up HPI Details Patient comes in today for her follow up visit - was last seen in May 2022 States that she has been experiencing increased pain over her lower back and legs lately Has also been experiencing some constipation recently and states that her stomach feels uncomfortable and bloated often States that she has been experiencing frequent diffuse lower abdominal pain for a few weeks now Had some bowel movement yesterday but states that she was not able to pass out a lot of stool then She denies any headaches or dizziness Denies any chest pains, no increased SOB No nausea/vomiting Denies any acute urinary symptoms currently [facility] Medical History (Updated 01/12/23 @ 05:28 by Rahul Beaulieu MD) Constipation Abdominal pain Menopause GERD (gastroesophageal reflux disease) Diabetes Cervical lymphadenitis Depression Low back pain Obesity (BMI 30-39.9) Primary insomnia Vitamin D deficiency Acquired hypothyroidism Primary osteoarthritis, left shoulder Asthma Vitamin B12 deficiency Iron deficiency anemia Benign essential hypertension Pure hypercholesterolemia Chronic kidney disease (CKD), stage III (moderate) Type 2 diabetes mellitus with diabetic chronic kidney disease Surgical History History of lipoma History of colonoscopy History of carpal tunnel release Family History Father Advanced cardiac disease Diabetes Mother Lung cancer Family/Other Diabetes Hypertension High cholesterol Social History Housing: House Alcohol intake: never Patient Tobacco Use Status: Former Tobacco user Tobacco use type: Cigarette e-Cigarette/Vaping Use: Never Used Second Hand Smoke Exposure: Yes service: No Current occupational status: retired Cognitive needs: No Hearing needs: No Vision needs: Yes Questionnaire PHQ-9 Over the last 2 weeks, how often have you been bothered by any of the following problems? 1. Little interest or pleasure in doing things: not at all 2. Feeling down, depressed, or hopeless: not at all 3. Trouble falling or staying asleep, or sleeping too much: not at all 4. Feeling tired or having little energy: not at all 5. Poor appetite or overeating: not at all 6. Feeling bad about yourself - or that you are a failure or have let yourself or your family down: not at all 7. Trouble concentrating on things, such as reading the newspaper or watching television: not at all 8. Moving or speaking so slowly that other people could have noticed. Or the opposite - being so fidgety or restless that you have been moving around a lot more than usual: not at all 9. Thoughts that you would be better off or of hurting yourself in some way: not at all Total score: 0 Depression Screening Interpretation: Negative Depression Screening Done: Yes 37352 - PHQ-9 Billing: Yes Source: Developed by Drs. Eligio Cox, Viry Guevara, Vishal Quinteros and colleagues, with an educational carolin from [employer]. Thrive Questionnaire Date Thrive assessed: 01/10/23 I am a: Patient What is your living situation today?: I have a steady place to live Within the past 12 months, did the food you bought not last and you didn't have the money to get more?: Never true Within the past 12 months, did you worry whether your food would run out before you got money to buy more?: Never true Do you have trouble paying for medicines?: No Do you have trouble getting transportation to medical appointments?: No Do you have trouble paying your heating and electricity bill?: No Do you have trouble taking care of your child, family member or friend?: No Do you have trouble with day-to-day activities such as bathing, preparing meals, shopping, managing finances, etc.?: No Are you currently unemployed and looking for a job?: No Are you interested in more education?: No Please select the resources that you would like help with: None Currently or been in a relationship where the following occur: no concerns reported AUDIT C Alcohol Use Questionnaire (AUDIT-C) 1. How often do you have a drink containing alcohol?: Never 3. How often do you have six or more drinks on one occasion?: Never Total Score: 0 Score Reviewed/Action Taken: Yes ARNOLDO-7 AMB Questionnaire ARNOLDO-7 Date ARNOLDO - 7 assessed: 01/10/23 Feeling nervous, anxious, or on edge: 0 = Not at all Not being able to stop or control worryin = Not at all Worrying too much about different things: 0 = Not at all Trouble relaxin = Not at all Being so restless that it is hard to sit still: 0 = Not at all Becoming easily annoyed or irritable: 0 = Not at all Feeling afraid as if something awful might happen: 0 = Not at all Total ARNOLDO-7 score (0-4 normal; 5-9 mild; 10-14 moderate; 15-21 severe): 0 Source: Developed by Drs. Eligio Cox, Viry Guevara, Vishal Quinteros and colleagues, with an educational carolin from [employer]. Review of Systems Const Denies chills, Denies difficulty sleeping (Rx helps), Reports fatigue, Denies fever(s) and Denies headache(s) ENT Denies dysphagia, Denies dizziness, Denies otalgia, Denies headache(s), Denies odynophagia and Denies sore throat Card Denies chest pain, Denies palpitations and Denies dyspnea Resp Denies cough, Denies dyspnea and Denies wheezing GI Reports abdominal pain (diffuse, over the lower abdomen), Reports bloating, Reports constipation (increasing lately), Denies dysphagia, Denies heartburn, Denies diarrhea, Denies nausea, Denies odynophagia and Denies vomiting Denies nocturia and Denies dysuria Musc Reports back pain (over the lumbar spine and paraspinal areas bilaterally - chronic), Reports arthralgias (left shoulder) and Reports stiffness Skin/Breast Denies rash Neuro Denies dizziness and Denies headache(s) Psych Denies anxiety Endo Reports fatigue and Denies palpitations Aller/Immun Denies wheezing Physical exam (Primary Care) Vital Signs: Last Vital Signs Pulse 83 01/10/23 16:15 BP 116/78 01/10/23 16:15 Pulse Ox 96 01/10/23 16:15 Oxygen Delivery Method Room Air 01/10/23 16:15 BMI result Body Mass Index 32.9 Tobacco/Smoking Status: Tobacco use Status Tobacco use date assessed 01/10/23 01/10/23 16:17 Patient Tobacco Use Status Former Tobacco user 01/10/23 16:17 Tobacco use type Cigarette 01/10/23 16:17 e-Cigarette/Vaping Use Never Used 01/10/23 16:17 PHQ-9: PHQ-9 Score PHQ-9: Total score 0 01/10/23 16:36 Depression Screening Interpretation: Negative Thrive Assessment: Date of Thrive Assessment Date Thrive assessed 01/10/23 01/10/23 16:17 Currently or been in a relationship where the following occur: no concerns reported Const General: no acute distress and alert HENMT Ears: TM's normal bilaterally and EAC's normal Throat: Yes posterior oropharynx normal and Yes tonsils normal (no TP congestion noted) Neck Neck: Yes no lymphadenopathy and Yes supple Resp Auscultation: clear to auscultation bilaterally, no rales and no wheezes Cardio Rate: regular rate Rhythm: regular rhythm Heart sounds: no murmurs GI Palpation (GI): Soft to palpation, Tenderness to palpation present (GI) (mild, over the lower abdomen), no guarding and No Rebound tenderness present Auscultation: normal bowel sounds General: Yes no CVA tenderness Back/Spine/Pelvis Back: no CVA tenderness Thoracic/Lumbar Spine: lumbar spinal tenderness Skin Rashes: no rashes Extrem General: Yes no clubbing, cyanosis or edema Results Reviewed Results Reviewed: Laboratory Tests 09/23/22 08:18 WBC 6.4 Hgb 11.9 L Hct 35.8 L Plt Count 219 Sodium 139 Potassium 4.1 Hemoglobin A1c % 5.6 Assessment and Plan Assessment & Plan (1) Abdominal pain: Code(s): R10.9 - Unspecified abdominal pain Qualifiers: Abdominal location: lower abdomen, unspecified Qualified Code(s): R10.30 - Lower abdominal pain, unspecified Plan: Is most likely due to increasing constipation Will send patient for abdominal x-rays for further evaluation and management (2) Constipation: Code(s): K59.00 - Constipation, unspecified Qualifiers: Constipation type: unspecified constipation type Qualified Code(s): K59.00 - Constipation, unspecified Plan: Encouraged increased oral fluids and dietary fiber Patient used to take MiraLax in the past but states that she stopped taking it a while back because she was having diarrhea / loose stools often when she was taking it Have advised patient to try taking a half dose of MiraLax daily or she can take the full 17 g dose every other day - Miralax Rx sent Will also start her for now on Senna 8.6 mg BID PRN (3) Low back pain: Code(s): M54.5 - Low back pain Qualifiers: Chronicity: unspecified Back pain laterality: midline Sciatica presence: unspecified whether sciatica present Qualified Code(s): M54.5 - Low back pain Plan: Reinforced activity and weight lifting restrictions Will send her for repeat x-rays of the lumbar spine as well as x-rays of the hips and pelvis for further evaluation of her recently increasing low back pain and hip pain and multiple joint pains Continue Tramadol 50 mg Q 12 hours PRN for pain for now (4) Pure hypercholesterolemia: Code(s): E78.00 - Pure hypercholesterolemia, unspecified Plan: Will send patient for some follow up labs KAY as she has not had any follow up labs done in several months now Reinforced low cholesterol diet Continue Lovastatin 40 mg QD Will recheck her labs and fasting lipids in 3 months for follow-up (5) Benign essential hypertension: Code(s): I10 - Essential (primary) hypertension Plan: Reinforced low sodium diet -? goal is systolic BP of at least 130 to 140 mm or less Continue Enalapril 2.5 mg QD (6) Type 2 diabetes mellitus with diabetic chronic kidney disease: Code(s): E11.22 - Type 2 diabetes mellitus with diabetic chronic kidney disease Qualifiers: Diabetes mellitus nursing home insulin use: without extermination supervisor use Chronic kidney disease stage: stage 3 (moderate) Chronic kidney disease stage 3 subtype: stage 3a (GFR 45-59) Qualified Code(s): E11.21 - Type 2 diabetes mellitus with diabetic nephropathy; N18.31 - Chronic kidney disease, stage 3a Plan: HgbA1c was at 5,6% when last checked back in September 2022 - goal is < 7.0% Reinforced diabetic diet Continue Jentadueto 2.5-500 mg BID (7) Chronic kidney disease (CKD), stage III (moderate): Code(s): N18.30 - Chronic kidney disease, stage 3 unspecified Qualifiers: Chronic kidney disease stage 3 subtype: stage 3a (GFR 45-59) Qualified Code(s): N18.31 - Chronic kidney disease, stage 3a Plan: Stable -? will continue to monitor GFR and renal function routinely (8) Iron deficiency anemia: Code(s): D50.9 - Iron deficiency anemia, unspecified Qualifiers: Iron deficiency anemia type: unspecified iron deficiency Qualified Code(s): D50.9 - Iron deficiency anemia, unspecified Plan: Continue Ferrous Sulfate 325 mg QD Will continue to monitor her CBC regularly (9) Asthma: Code(s): J45.909 - Unspecified asthma, uncomplicated Qualifiers: Asthma severity: mild Asthma persistence: intermittent Asthma complication type: uncomplicated Qualified Code(s): J45.20 - Mild intermittent asthma, uncomplicated Plan: Stable Continue Albuterol HFA 2 puffs 4 times a day as needed; uses her nebulizer as needed (10) Acquired hypothyroidism: Code(s): E03.9 - Hypothyroidism, unspecified Plan: Continue Levothyroxine 100 mcg QD Will continue to monitor her TFTs regularly (11) Vitamin B12 deficiency: Code(s): E53.8 - Deficiency of other specified B group vitamins Plan: Continue VItamin B12 500 mcg QD (12) Vitamin D deficiency: Code(s): E55.9 - Vitamin D deficiency, unspecified Plan: Continue Vitamin D3 1000 units daily (13) Primary osteoarthritis, left shoulder: Code(s): M19.012 - Primary osteoarthritis, left shoulder Plan: States that Tramadol helps with her shoulder pain and keep the pain manageable (14) Primary insomnia: Code(s): F51.01 - Primary insomnia Plan: Sleep hygiene reinforced Continue Trazodone 100 mg 2 tablets at bedtime daily as needed and Melatonin 5 mg 1 capsule at bedtime as needed (15) Depression: Code(s): F32.9 - Major depressive disorder, single episode, unspecified Qualifiers: Depression Type: major depressive disorder Major depression recurrence: recurrent Active/Remission status: currently active Major depression episode severity: unspecified Qualified Code(s): F33.9 - Major depressive disorder, recurrent, unspecified Plan: Continue Sertraline 100 mg 2 tablets QD Follow-up with Psychiatry as scheduled (16) Obesity (BMI 30-39.9): Code(s): E66.9 - Obesity, unspecified Plan: Reinforced diet/exercise as tolerated/lose weight Plan Follow up in 3 months Orders: Orders XR hip BI w PEL1V 01/11/23 M25.551 - Pain in right hip, M25.552 - Pain in left hip Complete Blood Count Auto Diff 3 Months R10.9 - Unspecified abdominal pain Comprehensive [place]. Panel Fast 01/11/23 E78.00 - Pure hypercholesterolemia, unspecified Free T4 (Free Thyroxine) 01/11/23 E03.9 - Hypothyroidism, unspecified UA CC w/rflx Micro + Cult 01/11/23 R30.0 - Dysuria Erythrocyte Sedimentation Rate 01/11/23 M54.5 - Low back pain UA CC w/rflx Micro + Cult 3 Months R30.0 - Dysuria Microalbumin, Random (w Creat) 3 Months E11.9 - Type 2 diabetes mellitus without complications Free T4 (Free Thyroxine) 3 Months E03.9 - Hypothyroidism, unspecified XR lumbar spine 2-3V 01/11/23 M54.50 - Low back pain, unspecified XR abdomen 3V 01/11/23 R10.9 - Unspecified abdominal pain Lipid Panel 01/11/23 E78.00 - Pure hypercholesterolemia, unspecified Thyroid Stimulating Hormone 01/11/23 E03.9 - Hypothyroidism, unspecified Vitamin D 25-OH Total 01/11/23 E55.9 - Vitamin D deficiency, unspecified Hemoglobin A1c 3 Months E11.9 - Type 2 diabetes mellitus without complications Lipid Panel 3 Months E78.00 - Pure hypercholesterolemia, unspecified Thyroid Stimulating Hormone 3 Months E03.9 - Hypothyroidism, unspecified Vitamin D 25-OH Total 3 Months E55.9 - Vitamin D deficiency, unspecified Medications: New sennosides (senna) 8.6 mg PO BID PRN 60 caps 0RF constipation polyethylene glycol 3350 (Miralax) 17 grams PO DAILY 510 grams 0RF constipation Coding Level of Care Code Est Pt Level 4 (21581) Diagnoses Lower abdominal pain R10.30 Abdominal location: lower abdomen, unspecified Constipation, unspecified constipation type K59.00 Constipation type: unspecified constipation type Midline low back pain, unspecified chronicity, unspecified whether sciatica present M54.5 Chronicity: unspecified Back pain laterality: midline Sciatica presence: unspecified whether sciatica present Pure hypercholesterolemia E78.00 Benign essential hypertension I10 Type 2 diabetes mellitus with stage 3a chronic kidney disease, without long-term current use of insulin E11.21; N18.31 Diabetes mellitus nursing home insulin use: without nursing home use Chronic kidney disease stage: stage 3 (moderate) Chronic kidney disease stage 3 subtype: stage 3a (GFR 45-59) Stage 3a chronic kidney disease N18.31 Chronic kidney disease stage 3 subtype: stage 3a (GFR 45-59) Iron deficiency anemia, unspecified iron deficiency anemia type D50.9 Iron deficiency anemia type: unspecified iron deficiency Mild intermittent asthma without complication J45.20 Asthma severity: mild Asthma persistence: intermittent Asthma complication type: uncomplicated Acquired hypothyroidism E03.9 Vitamin B12 deficiency E53.8 Vitamin D deficiency E55.9 Primary osteoarthritis, left shoulder M19.012 Primary insomnia F51.01 Episode of recurrent major depressive disorder, unspecified depression episode severity F33.9 Depression Type: major depressive disorder Major depression recurrence: recurrent Active/Remission status: currently active Major depression episode severity: unspecified Obesity (BMI 30-39.9) E66.9
[2023-01-10 16:15] VITALS: BP 116/78; PULSE 83; O2SAT 96; BMI 32.9
== END 2023-01-10 16:52 | disposition home or self-care (01) ==
PROVIDERS: PCP Internal Medicine; Visit Provider Internal Medicine
DX: E11.21 Type 2 diabetes mellitus with diabetic nephropathy (principal); N18.31 Chronic kidney disease, stage 3a; F33.9 Major depressive disorder, recurrent, unspecified; R10.30 Lower abdominal pain, unspecified; K59.00 Constipation, unspecified; M54.50 Low back pain, unspecified; E78.00 Pure hypercholesterolemia, unspecified; I10 Essential (primary) hypertension; D50.9 Iron deficiency anemia, unspecified; J45.20 Mild intermittent asthma, uncomplicated; E03.9 Hypothyroidism, unspecified; E53.8 Deficiency of other specified B group vitamins
CPT/HCPCS: 99214

== ENCOUNTER 2023-01-11 07:40 | Outpatient (REF) | payer OTHER, SELFPAY ==
[2023-01-11 09:02] LABS: Appearance Urine Clear; Color Urine Yellow; Glucose Urine UA Negative (Negative); Leukocyte Esterase Urine Negative (Negative); Nitrite Urine Negative (Negative); PH 5.5 (5.0-9.0); Urine Blood Negative (Negative); Urine Ketones Negative (Negative); Urine Protein Negative (Neg-Trace)
[2023-01-11 09:28] LABS: Alanine Aminotransferase 12 U/L (0-31); Albumin Level 4.4 g/dL (3.5-5.0); Alkaline Phosphatase 36 U/L (39-117); Anion Gap 15 (12-20); Aspartate Amino Transferase 19 U/L (5-31); Bilirubin Total 0.4 mg/dL (0.0-1.0); Blood Urea Nitrogen 16 mg/dL (9-16); Calcium 9.6 mg/dL (8.4-10.2); Carbon Dioxide 25 mmol/L (22-29); Chloride 105 mmol/L (96-108); Cholesterol 183 mg/dL (<200); Estimated Glomerular Filt Rate 56; Glucose Fasting 109 mg/dL (60-99); HDL Cholesterol 48 mg/dL (>40); LDL Cholesterol Calculated 103 mg/dL (<100); Potassium 4.5 mmol/L (3.3-5.1); Sodium 140 mmol/L (135-145); Total Protein 7.3 g/dL (6.5-8.0); Triglycerides 162 mg/dL (<150)
[2023-01-11 09:37] LABS: Free T4 (Free Thyroxine) 0.95 ng/dL (0.71-1.85); Thyroid Stimulating Hormone 0.64 uIU/mL (0.32-4.0); Vitamin D 25-OH Total 78.1 ng/mL (>30)
[2023-01-11 11:22] LABS: Erythrocyte Sedimentation Rate 16 MM/HR (0-20)
== END 2023-01-11 07:41 | disposition home or self-care (01) ==
LOC: HO.XRAY 07:40
PROVIDERS: PCP Internal Medicine; Visit Provider Internal Medicine
DX: E03.9 Hypothyroidism, unspecified (principal); R30.0 Dysuria; E55.9 Vitamin D deficiency, unspecified; E78.00 Pure hypercholesterolemia, unspecified; M25.551 Pain in right hip; M25.552 Pain in left hip; M54.50 Low back pain, unspecified; R10.9 Unspecified abdominal pain; E11.9 Type 2 diabetes mellitus without complications
CPT/HCPCS: 36415; 72100; 73521; 74021; 80053; 80061; 81003; 82306; 84439; 84443; 85652

== ENCOUNTER 2023-02-09 12:38 | Outpatient (REF) | payer OTHER, SELFPAY ==
--- NOTE | ~2023-02-09 | MM_ITS ---
EXAMINATION: MM SCREENING DIGITAL BREAST TOMOSYNTHESIS, BILATERAL CLINICAL INFORMATION: Screening. Asymptomatic. COMPARISON: Mammography: This study is compared with prior exams dating back to 2015. TECHNIQUE: Digital breast tomosynthesis is performed in both the craniocaudal and mediolateral oblique views along with computer-aided detection (CAD). Synthesized 2D images are generated from the tomosynthesis. FINDINGS: There are scattered areas of fibroglandular density (ACR BI-RADS breast composition Category b). There are no significant masses, abnormal calcifications, or other abnormalities. MM/MM tomosynthesis screening BI IMPRESSION: No mammographic evidence of malignancy. ASSESSMENT: BI-RADS BI-RADS 1 - Negative RECOMMENDATION: Routine annual mammography screening. 1 year F/U This examination should not preclude the clinical evaluation of a suspicious palpable abnormality. This patient's information was entered into a reminder system with a target due date for their next mammogram.
== END 2023-02-09 12:39 | disposition home or self-care (01) ==
LOC: HO.MAMMO 12:38
PROVIDERS: PCP Internal Medicine; Visit Provider Internal Medicine
DX: Z12.31 Encounter for screening mammogram for malignant neoplasm of breast (principal)
CPT/HCPCS: 77063; 77067

== ENCOUNTER → 2023-02-09 13:00 | Outpatient (BNV) | payer OTHER, SELFPAY | PROVIDERS: PCP Internal Medicine; Visit Provider Radiology Diagnostic Radiology | DX: Z12.31 Encounter for screening mammogram for malignant neoplasm of breast (principal) | CPT/HCPCS: 77063; 77067 ==

== ENCOUNTER 2023-05-01 07:51 | Outpatient (REF) | payer OTHER, SELFPAY ==
[2023-05-01 08:11] LABS: MANUAL DIFF FLAG NO
[2023-05-01 08:36] LABS: Basophils Absolute Auto 0.1 X10*3/uL (0.0-0.2); Basophils Percent Auto 0.8 % (0-2); Eosinophils Absolute Auto 0.9 X10*3/uL (0.0-0.4); Eosinophils Percent Auto 13.5 % (0-4); Hematocrit 37.3 % (37.0-47.0); Hemoglobin 12.5 g/dl (12.0-16.0); Imm Gran Abs Auto 0.02 X10*3/uL (0.00-0.03); Imm Gran Pct Auto 0.3 % (0.0-0.4); Lymphocytes Absolute Auto 2.8 X10*3/uL (1.2-4.9); Lymphocytes Percent Auto 43.5 % (20-40); Mean Corpuscular HGB Conc 33.5 g/dl (31.0-35.0); Mean Corpuscular Hemoglobin 30.1 pg (27.0-33.0); Mean Corpuscular Volume 89.9 fL (80.0-98.0); Mean Platelet Volume 9.7 fL (9.4-12.3); Monocytes Absolute Auto 0.6 X10*3/uL (0.1-1.2); Monocytes Percent Auto 8.5 % (2-11); Neutrophils Absolute Auto 2.2 x10*3/uL (2.0-8.3); Neutrophils Percent Auto 33.4 % (45-73); Platelet Count 202 X10*3/uL (160-400); Red Blood Count 4.15 X10*6/uL (4.20-5.50); Red Cell Distribution Width 12.9 % (11.0-16.0); White Blood Count 6.4 X10*3/uL (4.8-10.8)
[2023-05-01 08:40] LABS: Appearance Urine Clear; Color Urine Yellow; Glucose Urine UA Negative (Negative); Leukocyte Esterase Urine Negative (Negative); Nitrite Urine Negative (Negative); PH 6.5 (5.0-9.0); Urine Blood Negative (Negative); Urine Ketones Negative (Negative); Urine Protein Negative (Neg-Trace)
[2023-05-01 09:13] LABS: Cholesterol 187 mg/dL (<200); HDL Cholesterol 61 mg/dL (>40); LDL Cholesterol Calculated 101 mg/dL (<100); Triglycerides 125 mg/dL (<150)
[2023-05-01 09:28] LABS: Free T4 (Free Thyroxine) 0.91 ng/dL (0.71-1.85); Thyroid Stimulating Hormone 1.64 uIU/mL (0.32-4.0); Vitamin D 25-OH Total 58.9 ng/mL (>30)
[2023-05-01 09:29] LABS: Creatinine Urine 52.43 mg/dL; Microalbumin Urine < 5.0 mg/L
[2023-05-01 12:05] LABS: Estimated Average Glucose 114 mg/dL; Hemoglobin A1c % 5.6 % (<6.0)
== END 2023-05-01 07:52 | disposition home or self-care (01) ==
LOC: HO.LAB 07:51
PROVIDERS: PCP Internal Medicine; Visit Provider Internal Medicine
DX: R10.9 Unspecified abdominal pain (principal); E03.9 Hypothyroidism, unspecified; E11.9 Type 2 diabetes mellitus without complications; E78.00 Pure hypercholesterolemia, unspecified; E55.9 Vitamin D deficiency, unspecified; R30.0 Dysuria
CPT/HCPCS: 36415; 80061; 81003; 82043; 82306; 82570; 83036; 84439; 84443; 85025

== ENCOUNTER 2023-05-04 09:50 | Outpatient (AMB) | payer OTHER, SELFPAY ==
[2023-05-04 09:55] VITALS: BP 122/70; PULSE 85; O2SAT 95; BMI 33.4
--- NOTE | 2023-05-04 09:55 | A.OFFPC_ITS ---
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 Aircraft Required: No Accompanied by: Spouse Allergies ibuprofen [IBUPROFEN] Allergy (Unknown, Verified 05/04/23 10:37) swelling BuPROPion HCl Allergy (Unknown, Uncoded 05/04/23 10:37) unknown Cortisone Allergy (Unknown, Uncoded 05/04/23 10:37) Unknown Medication List - Last Reconciled 05/04/23 by Rahul Beaulieu MD cetirizine (Zyrtec) 10 mg PO DAILY PRN 90 days cholecalciferol (vitamin D3) 50 mcg PO DAILY 90 days cyanocobalamin (vitamin B-12) 500 mcg PO DAILY diclofenac sodium 1% (Voltaren Arthritis Pain) 4 grams topical QID enalapril maleate 2.5 mg PO DAILY 90 days ferrous sulfate 325 mg PO DAILY fluticasone propionate 50 mcg/actuation 1 spray intranasal DAILY 30 days levothyroxine 100 mcg PO DAILY 90 days lidocaine 5% 1 patch topical DAILY linagliptin-metformin 2.5-500 mg (Jentadueto) 1 tab PO BID lovastatin 40 mg PO DAILY 90 days naproxen 500 mg PO BID PRN 30 days omeprazole 20 mg PO DAILY 30 days polyethylene glycol 3350 (Miralax) 17 grams PO DAILY sennosides (senna) 8.6 mg PO BID PRN sertraline 200 mg (2 x 100 mg) PO DAILY tramadol 50 mg PO Q12H PRN 30 days trazodone 200 mg (2 x 100 mg) PO BEDTIME PRN 90 days Tobacco use date assessed: 05/04/23 Fall risk assessment: No Falls in past year Last assessed Fall Risk: 05/04/23 Dental Screening Dental Screen Date: 05/04/23 Did you have a dental visit in the last 12 months?: No Did you have a dental problem in the last 6 months where you did not have access to dental care?: No Was dental information given to patient?: No HPI 3 month f/u HPI Details Patient comes in today for her follow up visit States that she has been breaking out in a recurrent itchy rash all over for the past 3 to 4 weeks now She has a pet cat at home and states that no one else in the household has the same rash/symptoms that she's had lately She denies any recent travel States that she feels okay otherwise She denies any headaches or dizziness Denies any chest pains, no SOB No nausea/vomiting; still has occasional abdominal pain and constipation but states that these have improved a lot with her current Rx (Miralax) Had her follow up labs done a few days ago - to discuss her results [facility] Medical History Constipation Abdominal pain Menopause GERD (gastroesophageal reflux disease) Diabetes Cervical lymphadenitis Depression Low back pain Obesity (BMI 30-39.9) Primary insomnia Vitamin D deficiency Acquired hypothyroidism Primary osteoarthritis, left shoulder Asthma Vitamin B12 deficiency Iron deficiency anemia Benign essential hypertension Pure hypercholesterolemia Chronic kidney disease (CKD), stage III (moderate) Type 2 diabetes mellitus with diabetic chronic kidney disease Surgical History History of lipoma History of colonoscopy History of carpal tunnel release Family History Father Advanced cardiac disease Diabetes Mother Lung cancer Family/Other Diabetes Hypertension High cholesterol Social History Housing: House Alcohol intake: never Patient Tobacco Use Status: Former Tobacco user Tobacco use type: Cigarette e-Cigarette/Vaping Use: Never Used Second Hand Smoke Exposure: Yes service: No Current occupational status: retired Cognitive needs: No Hearing needs: No Vision needs: Yes Questionnaire PHQ-9 Over the last 2 weeks, how often have you been bothered by any of the following problems? 1. Little interest or pleasure in doing things: not at all 2. Feeling down, depressed, or hopeless: not at all 3. Trouble falling or staying asleep, or sleeping too much: not at all 4. Feeling tired or having little energy: not at all 5. Poor appetite or overeating: not at all 6. Feeling bad about yourself - or that you are a failure or have let yourself or your family down: not at all 7. Trouble concentrating on things, such as reading the newspaper or watching television: not at all 8. Moving or speaking so slowly that other people could have noticed. Or the opposite - being so fidgety or restless that you have been moving around a lot more than usual: not at all 9. Thoughts that you would be better off or of hurting yourself in some way: not at all Total score: 0 Depression Screening Interpretation: Negative Depression Screening Done: Yes 09205 - PHQ-9 Billing: Yes Source: Developed by Drs. Eligio Cox, Viry Guevara, Vishal Quinteros and colleagues, with an educational carolin from [employer]. Thrive Questionnaire Date Thrive assessed: 05/04/23 I am a: Patient What is your living situation today?: I have a steady place to live Within the past 12 months, did the food you bought not last and you didn't have the money to get more?: Never true Within the past 12 months, did you worry whether your food would run out before you got money to buy more?: Never true Do you have trouble paying for medicines?: No Do you have trouble getting transportation to medical appointments?: No Do you have trouble paying your heating and electricity bill?: No Do you have trouble taking care of your child, family member or friend?: No Do you have trouble with day-to-day activities such as bathing, preparing meals, shopping, managing finances, etc.?: No Are you currently unemployed and looking for a job?: No Are you interested in more education?: No Please select the resources that you would like help with: None Currently or been in a relationship where the following occur: no concerns reported THRIVE Score: 0 AUDIT C Alcohol Use Questionnaire (AUDIT-C) 1. How often do you have a drink containing alcohol?: Never 3. How often do you have six or more drinks on one occasion?: Never Total Score: 0 Score Reviewed/Action Taken: Yes ARNOLDO-7 AMB Questionnaire ARNOLDO-7 Date ARNOLDO - 7 assessed: 05/04/23 Feeling nervous, anxious, or on edge: 0 = Not at all Not being able to stop or control worryin = Not at all Worrying too much about different things: 0 = Not at all Trouble relaxin = Not at all Being so restless that it is hard to sit still: 0 = Not at all Becoming easily annoyed or irritable: 0 = Not at all Feeling afraid as if something awful might happen: 0 = Not at all Total ARNOLDO-7 score (0-4 normal; 5-9 mild; 10-14 moderate; 15-21 severe): 0 Source: Developed by Drs. Eligio Cox, Viry Guevara, Vishal Quinteros and colleagues, with an educational carolin from [employer]. Review of Systems Const Denies chills, Denies difficulty sleeping (Rx helps), Reports fatigue, Denies fever(s) and Denies headache(s) ENT Denies dysphagia, Denies dizziness, Denies otalgia, Denies headache(s), Denies odynophagia and Denies sore throat Card Denies chest pain, Denies palpitations and Denies dyspnea Resp Denies cough, Denies dyspnea and Denies wheezing GI Reports abdominal pain (on and off, over the lower abdomen), Reports constipation (on and off but better overall with current Rx), Denies dysphagia, Denies heartburn, Denies diarrhea, Denies nausea, Denies odynophagia and Denies vomiting Denies nocturia, Denies dysuria and Denies urinary urgency Musc Reports back pain (over the lumbar spine and paraspinal areas bilaterally - chronic), Reports arthralgias (left shoulder) and Reports stiffness Skin/Breast Reports rash ((+) scattered itchy rash, especially over her chest wall and back) Neuro Denies dizziness and Denies headache(s) Psych Denies anxiety Endo Reports fatigue and Denies palpitations Aller/Immun Denies wheezing Physical exam (Primary Care) Vital Signs: Last Vital Signs Pulse 85 05/04/23 09:55 BP 122/70 05/04/23 09:55 Pulse Ox 95 05/04/23 09:55 Oxygen Delivery Method Room Air 05/04/23 09:55 BMI result Body Mass Index 33.4 Tobacco/Smoking Status: Tobacco use Status Tobacco use date assessed 05/04/23 05/04/23 10:01 Patient Tobacco Use Status Former Tobacco user 05/04/23 10:01 Tobacco use type Cigarette 05/04/23 10:01 e-Cigarette/Vaping Use Never Used 05/04/23 10:01 PHQ-9: PHQ-9 Score PHQ-9: Total score 0 05/04/23 10:01 Depression Screening Interpretation: Negative Thrive Assessment: Date of Thrive Assessment Date Thrive assessed 05/04/23 05/04/23 10:01 Currently or been in a relationship where the following occur: no concerns reported Const General: no acute distress and alert HENMT Ears: TM's normal bilaterally and EAC's normal Throat: Yes posterior oropharynx normal and Yes tonsils normal (no TP congestion noted) Neck Neck: Yes no lymphadenopathy and Yes supple Resp Auscultation: clear to auscultation bilaterally, no rales and no wheezes Cardio Rate: regular rate Rhythm: regular rhythm Heart sounds: no murmurs GI Palpation (GI): Soft to palpation, Tenderness to palpation present (GI) (mild, over the lower abdomen), no guarding and No Rebound tenderness present Auscultation: normal bowel sounds General: Yes no CVA tenderness Back/Spine/Pelvis Back: no CVA tenderness Thoracic/Lumbar Spine: lumbar spinal tenderness Skin Rashes: no rashes Extrem General: Yes no clubbing, cyanosis or edema Results Reviewed Results Reviewed: Laboratory Tests 05/01/23 05/01/23 05/01/23 08:05 08:06 08:06 WBC 6.4 Hgb 12.5 Hct 37.3 Plt Count 202 Hemoglobin A1c % 5.6 Triglycerides 125 Cholesterol 187 LDL Cholesterol, Calc 101 H HDL Cholesterol 61 25-OH Vitamin D Total 58.9 TSH 1.64 Free T4 0.91 Ur Specific [place] 1.010 Urine Protein Negative Urine Glucose (UA) Negative Urine Blood Negative Urine Nitrite Negative Ur Leukocyte Esterase Negative Assessment and Plan Assessment & Plan (1) Pure hypercholesterolemia: Code(s): E78.00 - Pure hypercholesterolemia, unspecified Plan: Results of her labs done a few days ago reviewed and discussed with patient Reinforced low cholesterol diet Continue Lovastatin 40 mg QD Will recheck her labs and fasting lipids in 3 months for follow-up (2) Type 2 diabetes mellitus with diabetic chronic kidney disease: Code(s): E11.22 - Type 2 diabetes mellitus with diabetic chronic kidney disease Qualifiers: Diabetes mellitus extermination inspector insulin use: without extermination inspector use Chronic kidney disease stage: stage 3 (moderate) Chronic kidney disease stage 3 subtype: stage 3a (GFR 45-59) Qualified Code(s): E11.21 - Type 2 diabetes mellitus with diabetic nephropathy; N18.31 - Chronic kidney disease, stage 3a Plan: Her HgbA1c was unchanged from previous at 5.6% on her labs done a few days ago - goal is < 7.0% Reinforced diabetic diet Continue Jentadueto 2.5-500 mg BID (3) Benign essential hypertension: Code(s): I10 - Essential (primary) hypertension Plan: Reinforced low sodium diet -? goal is systolic BP of at least 130 to 140 mm or less Continue Enalapril 2.5 mg QD (4) Chronic kidney disease (CKD), stage III (moderate): Code(s): N18.30 - Chronic kidney disease, stage 3 unspecified Qualifiers: Chronic kidney disease stage 3 subtype: stage 3a (GFR 45-59) Qualified Code(s): N18.31 - Chronic kidney disease, stage 3a Plan: Stable -? will continue to monitor GFR and renal function routinely (5) Iron deficiency anemia: Code(s): D50.9 - Iron deficiency anemia, unspecified Qualifiers: Iron deficiency anemia type: unspecified iron deficiency Qualified Code(s): D50.9 - Iron deficiency anemia, unspecified Plan: Corrected - her H/H were normal on her recent labs Continue Ferrous Sulfate 325 mg QD Will continue to monitor her CBC regularly (6) Acquired hypothyroidism: Code(s): E03.9 - Hypothyroidism, unspecified Plan: Continue Levothyroxine 100 mcg QD Will continue to monitor her TFTs regularly (7) Asthma: Code(s): J45.909 - Unspecified asthma, uncomplicated Qualifiers: Asthma severity: mild Asthma persistence: intermittent Asthma complication type: uncomplicated Qualified Code(s): J45.20 - Mild intermittent asthma, uncomplicated Plan: Stable Continue Albuterol HFA 2 puffs 4 times a day as needed; uses her nebulizer as needed (8) Constipation: Code(s): K59.00 - Constipation, unspecified Qualifiers: Constipation type: unspecified constipation type Qualified Code(s): K59.00 - Constipation, unspecified Plan: Encouraged increased oral fluids and dietary fiber Abdominal x-rays done back in January showed (+) mild to moderate stool burden Continue Miralax 17 gm at half dose daily or 17 gm every other day - patient had diarrhea in the past when she took it daily Continue Senna 8.6 mg BID PRN as well (9) Low back pain: Code(s): M54.5 - Low back pain Qualifiers: Chronicity: unspecified Back pain laterality: midline Sciatica presence: unspecified whether sciatica present Qualified Code(s): M54.5 - Low back pain Plan: Lumbar spine and hip x-rays done back in January 2023 revealed (+) multilevel mild lumbar spondylosis, with slight thoracolumbar levoscoliosis. There are mild degenerative changes noted in both hips Reinforced activity and weight lifting restrictions Continue Tramadol 50 mg Q 12 hours PRN for pain for now (10) Vitamin B12 deficiency: Code(s): E53.8 - Deficiency of other specified B group vitamins Plan: Continue VItamin B12 500 mcg QD (11) Vitamin D deficiency: Code(s): E55.9 - Vitamin D deficiency, unspecified Plan: Continue Vitamin D3 1000 units QD (12) Pruritic erythematous rash: Code(s): L29.8 - Other pruritus Plan: Suspect that patient either has some form of dermatitis or could be insect bites Will start her on Triamcinolone cream 0.5% BID PRN Patient is advised to call if her rash keeps recurring in a few weeks - will need to consider referring her to dermatology then for further evaluation and management (13) Primary osteoarthritis, left shoulder: Code(s): M19.012 - Primary osteoarthritis, left shoulder Plan: States that Tramadol helps with her shoulder pain and keep the pain manageable (14) Primary insomnia: Code(s): F51.01 - Primary insomnia Plan: Sleep hygiene reinforced Continue Trazodone 100 mg 2 tablets at bedtime daily as needed and Melatonin 5 mg 1 capsule at bedtime as needed (15) Depression: Code(s): F32.9 - Major depressive disorder, single episode, unspecified Qualifiers: Depression Type: major depressive disorder Major depression recurrence: recurrent Active/Remission status: currently active Major depression episode severity: unspecified Qualified Code(s): F33.9 - Major depressive disorder, recurrent, unspecified Plan: Continue Sertraline 100 mg 2 tablets QD Follow-up with Psychiatry as scheduled (16) Obesity (BMI 30-39.9): Code(s): E66.9 - Obesity, unspecified Plan: Reinforced diet/exercise as tolerated/lose weight Plan Follow up in 4 months Orders: Orders Comprehensive [place]. Panel Fast 4 Months E78.00 - Pure hypercholesterolemia, unspecified Thyroid Stimulating Hormone 4 Months E03.9 - Hypothyroidism, unspecified Vitamin D 25-OH Total 4 Months E55.9 - Vitamin D deficiency, unspecified Vitamin B12 and Folate 4 Months E53.8 - Deficiency of other specified B group vitamins Complete Blood Count Auto Diff 4 Months D64.9 - Anemia, unspecified Lipid Panel 4 Months E78.00 - Pure hypercholesterolemia, unspecified Free T4 (Free Thyroxine) 4 Months E03.9 - Hypothyroidism, unspecified UA CC w/rflx Micro + Cult 4 Months R30.0 - Dysuria Microalbumin, Random (w Creat) 4 Months E11.9 - Type 2 diabetes mellitus without complications Hemoglobin A1c 4 Months E11.9 - Type 2 diabetes mellitus without complications Medications: New triamcinolone acetonide 0.5% 1 appl topical BID PRN 30 grams 1RF rash Coding Level of Care Code Est Pt Level 4 (50241) Diagnoses Pure hypercholesterolemia E78.00 Type 2 diabetes mellitus with stage 3a chronic kidney disease, without long-term current use of insulin E11.21; N18.31 Diabetes mellitus extermination inspector insulin use: without assisted use Chronic kidney disease stage: stage 3 (moderate) Chronic kidney disease stage 3 subtype: stage 3a (GFR 45-59) Benign essential hypertension I10 Stage 3a chronic kidney disease N18.31 Chronic kidney disease stage 3 subtype: stage 3a (GFR 45-59) Iron deficiency anemia, unspecified iron deficiency anemia type D50.9 Iron deficiency anemia type: unspecified iron deficiency Acquired hypothyroidism E03.9 Mild intermittent asthma without complication J45.20 Asthma severity: mild Asthma persistence: intermittent Asthma complication type: uncomplicated Constipation, unspecified constipation type K59.00 Constipation type: unspecified constipation type Midline low back pain, unspecified chronicity, unspecified whether sciatica present M54.5 Chronicity: unspecified Back pain laterality: midline Sciatica presence: unspecified whether sciatica present Vitamin B12 deficiency E53.8 Vitamin D deficiency E55.9 Pruritic erythematous rash L29.8 Primary osteoarthritis, left shoulder M19.012 Primary insomnia F51.01 Episode of recurrent major depressive disorder, unspecified depression episode severity F33.9 Depression Type: major depressive disorder Major depression recurrence: recurrent Active/Remission status: currently active Major depression episode severity: unspecified Obesity (BMI 30-39.9) E66.9
== END 2023-05-04 10:44 | disposition home or self-care (01) ==
PROVIDERS: PCP Internal Medicine; Visit Provider Internal Medicine
DX: I12.9 Hypertensive chronic kidney disease with stage 1 through stage 4 chronic kidney disease, or unspecified chronic kidney disease (principal); E11.21 Type 2 diabetes mellitus with diabetic nephropathy; N18.31 Chronic kidney disease, stage 3a; F33.9 Major depressive disorder, recurrent, unspecified; E78.00 Pure hypercholesterolemia, unspecified; D50.9 Iron deficiency anemia, unspecified; E03.9 Hypothyroidism, unspecified; J45.20 Mild intermittent asthma, uncomplicated; K59.00 Constipation, unspecified; M54.50 Low back pain, unspecified; E53.8 Deficiency of other specified B group vitamins; E55.9 Vitamin D deficiency, unspecified
CPT/HCPCS: 99214

== ENCOUNTER 2023-08-13 07:26 | Outpatient (REF) | payer OTHER, SELFPAY ==
[2023-08-13 07:39] LABS: MANUAL DIFF FLAG NO
[2023-08-13 07:51] LABS: Basophils Percent Auto 0.6 % (0-2); Eosinophils Absolute Auto 0.6 X10*3/uL (0.0-0.4); Eosinophils Percent Auto 11.7 % (0-4); Hematocrit 37.3 % (37.0-47.0); Hemoglobin 12.5 g/dl (12.0-16.0); Imm Gran Abs Auto 0.01 X10*3/uL (0.00-0.03); Imm Gran Pct Auto 0.2 % (0.0-0.4); Lymphocytes Percent Auto 42.7 % (20-40); Mean Corpuscular HGB Conc 33.5 g/dl (31.0-35.0); Mean Corpuscular Hemoglobin 30.4 pg (27.0-33.0); Mean Corpuscular Volume 90.8 fL (80.0-98.0); Mean Platelet Volume 9.3 fL (9.4-12.3); Monocytes Absolute Auto 0.5 X10*3/uL (0.1-1.2); Monocytes Percent Auto 11.5 % (2-11); Neutrophils Absolute Auto 1.6 x10*3/uL (2.0-8.3); Neutrophils Percent Auto 33.3 % (45-73); Platelet Count 204 X10*3/uL (160-400); Red Blood Count 4.11 X10*6/uL (4.20-5.50); Red Cell Distribution Width 12.8 % (11.0-16.0); White Blood Count 4.7 X10*3/uL (4.8-10.8)
[2023-08-13 07:58] LABS: Estimated Average Glucose 128 mg/dL; Hemoglobin A1c % 6.1 % (<6.0)
[2023-08-13 08:39] LABS: Alanine Aminotransferase 18 U/L (0-31); Albumin Level 4.4 g/dL (3.5-5.0); Alkaline Phosphatase 36 U/L (39-117); Anion Gap 15 (12-20); Aspartate Amino Transferase 19 U/L (5-31); Bilirubin Total 0.3 mg/dL (0.0-1.0); Blood Urea Nitrogen 16 mg/dL (9-16); Calcium 10.3 mg/dL (8.4-10.2); Carbon Dioxide 27 mmol/L (22-29); Chloride 106 mmol/L (96-108); Cholesterol 181 mg/dL (<200); Estimated Glomerular Filt Rate 50; Glucose Fasting 123 mg/dL (60-99); HDL Cholesterol 58 mg/dL (>40); LDL Cholesterol Calculated 96 mg/dL (<100); Potassium 4.6 mmol/L (3.3-5.1); Sodium 143 mmol/L (135-145); Total Protein 7.4 g/dL (6.5-8.0); Triglycerides 139 mg/dL (<150)
[2023-08-13 08:45] LABS: Free T4 (Free Thyroxine) 0.92 ng/dL (0.71-1.85); Thyroid Stimulating Hormone 0.78 uIU/mL (0.32-4.0); Vitamin D 25-OH Total 63.7 ng/mL (>30)
[2023-08-13 08:58] LABS: Vitamin B12 1787 pg/mL (200-900)
[2023-08-13 09:15] LABS: Appearance Urine Clear; Color Urine Yellow; Glucose Urine UA Negative (Negative); Leukocyte Esterase Urine Negative (Negative); Nitrite Urine Negative (Negative); Urine Blood Negative (Negative); Urine Ketones Negative (Negative); Urine Protein Negative (Neg-Trace)
[2023-08-13 09:58] LABS: Creatinine Urine 37.04 mg/dL; Microalbumin Urine < 5.0 mg/L
== END 2023-08-13 07:27 | disposition home or self-care (01) ==
LOC: HO.LAB 07:26
PROVIDERS: PCP Internal Medicine; Visit Provider Internal Medicine
DX: E78.00 Pure hypercholesterolemia, unspecified (principal); E03.9 Hypothyroidism, unspecified; E55.9 Vitamin D deficiency, unspecified; E53.8 Deficiency of other specified B group vitamins; R30.0 Dysuria; D64.9 Anemia, unspecified; E11.9 Type 2 diabetes mellitus without complications
CPT/HCPCS: 36415; 80053; 80061; 81003; 82043; 82306; 82570; 82607; 82746; 83036; 84439; 84443; 85025

== ENCOUNTER 2023-08-15 09:52 | Outpatient (AMB) | payer OTHER, SELFPAY ==
[2023-08-15 09:54] VITALS: BP 118/68; PULSE 78; O2SAT 96; BMI 34.4
--- NOTE | 2023-08-15 09:54 | MHC.PC.OV ---
Vital Signs 08/15/23 09:54 Height 4 ft 9 in Weight 159 lb 0.6 oz BMI 34.4 BP 118/68 Blood Pressure Location Lt brachial Position Sitting Pulse 78 Pulse Source Pulse Oximeter Pulse Oximetry (%) 96 Oxygen Delivery Method Room Air Intake Visit Reasons: DM, hyperlipidemia, hypothyroidism Marketing Rep Required: No Allergies ibuprofen [IBUPROFEN] Allergy (Unknown, Verified 08/15/23 10:28) swelling BuPROPion HCl Allergy (Unknown, Uncoded 08/15/23 10:28) unknown Cortisone Allergy (Unknown, Uncoded 08/15/23 10:28) Unknown Medication List - Last Reconciled 08/15/23 by Rahul Beaulieu MD cetirizine (Zyrtec) 10 mg PO DAILY PRN 90 days cholecalciferol (vitamin D3) 50 mcg PO DAILY 90 days cyanocobalamin (vitamin B-12) 500 mcg PO DAILY diclofenac sodium 1% (Voltaren Arthritis Pain) 4 grams topical QID enalapril maleate 2.5 mg PO DAILY 90 days ferrous sulfate 325 mg PO DAILY fluticasone propionate 50 mcg/actuation 1 spray intranasal DAILY 30 days levothyroxine 100 mcg PO DAILY 90 days lidocaine 5% 1 patch topical DAILY linagliptin-metformin 2.5-500 mg (Jentadueto) 1 tab PO BID lovastatin 40 mg PO DAILY 90 days naproxen 500 mg PO BID PRN 30 days omeprazole 20 mg PO DAILY 30 days polyethylene glycol 3350 (Miralax) 17 grams PO DAILY sennosides (senna) 8.6 mg PO BID PRN sertraline 200 mg (2 x 100 mg) PO DAILY tramadol 50 mg PO Q12H PRN 30 days trazodone 200 mg (2 x 100 mg) PO BEDTIME PRN 90 days triamcinolone acetonide 0.5% 1 appl topical BID PRN Tobacco use date assessed: 08/15/23 Fall risk assessment: No Falls in past year Last assessed Fall Risk: 08/15/23 Dental Screening Dental Screen Date: 05/04/23 HPI DM, hyperlipidemia, hypothyroidism HPI Details Patient comes in today for her follow up visit States that she feels okay She denies any headaches or dizziness Denies any chest pains, no SOB No nausea/vomiting, no abdominal pain No change in bowel habits noted Needs her Tramadol Rx refilled - states that it is helping her adequately with her joint pains and low back pain Had her follow up labs done a couple of days ago - to discuss her results [facility] Medical History Constipation Abdominal pain Menopause GERD (gastroesophageal reflux disease) Diabetes Cervical lymphadenitis Depression Low back pain Obesity (BMI 30-39.9) Primary insomnia Vitamin D deficiency Acquired hypothyroidism Primary osteoarthritis, left shoulder Asthma Vitamin B12 deficiency Iron deficiency anemia Benign essential hypertension Pure hypercholesterolemia Chronic kidney disease (CKD), stage III (moderate) Type 2 diabetes mellitus with diabetic chronic kidney disease Surgical History History of lipoma History of colonoscopy History of carpal tunnel release Family History Father Advanced cardiac disease Diabetes Mother Lung cancer Family/Other Diabetes Hypertension High cholesterol Social History Housing: House Alcohol intake: never Patient Tobacco Use Status: Former Tobacco user Tobacco use type: Cigarette e-Cigarette/Vaping Use: Never Used Second Hand Smoke Exposure: Yes service: No Current occupational status: retired Cognitive needs: No Hearing needs: No Vision needs: Yes Questionnaire Thrive Questionnaire Date Thrive assessed: 05/04/23 AUDIT C Alcohol Use Questionnaire (AUDIT-C) 1. How often do you have a drink containing alcohol?: Never 3. How often do you have six or more drinks on one occasion?: Never Total Score: 0 Score Reviewed/Action Taken: Yes ARNOLDO-7 AMB Questionnaire ARNOLDO-7 Date ARNOLDO - 7 assessed: 05/04/23 Source: Developed by Drs. Eligio Cox, Viry Guevara, Vishal Quinteros and colleagues, with an educational carolin from [employer]. Review of Systems Const Denies chills, Denies difficulty sleeping (Rx helps), Denies fatigue, Denies fever(s) and Denies headache(s) ENT Denies dysphagia, Denies dizziness, Denies otalgia, Denies headache(s), Denies neck pain, Denies odynophagia and Denies sore throat Card Denies chest pain, Denies palpitations and Denies dyspnea Resp Denies cough, Denies dyspnea and Denies wheezing GI Denies abdominal pain, Reports constipation (on and off but better overall with current Rx), Denies dysphagia, Denies heartburn, Denies diarrhea, Denies nausea, Denies odynophagia and Denies vomiting Denies nocturia, Denies dysuria and Denies urinary urgency Musc Reports back pain (over the lumbar spine and paraspinal areas bilaterally - chronic), Reports arthralgias (left shoulder), Denies neck pain and Reports stiffness Skin/Breast Denies rash Neuro Denies dizziness and Denies headache(s) Psych Denies anxiety Endo Denies fatigue and Denies palpitations Aller/Immun Denies wheezing Physical exam (Primary Care) Vital Signs: Last Vital Signs Pulse 78 08/15/23 09:54 BP 118/68 08/15/23 09:54 Pulse Ox 96 08/15/23 09:54 Oxygen Delivery Method Room Air 08/15/23 09:54 BMI result Body Mass Index 34.4 Tobacco/Smoking Status: Tobacco use Status Tobacco use date assessed 08/15/23 08/15/23 09:55 Patient Tobacco Use Status Former Tobacco user 08/15/23 09:55 Tobacco use type Cigarette 08/15/23 09:55 e-Cigarette/Vaping Use Never Used 08/15/23 09:55 Thrive Assessment: Date of Thrive Assessment Date Thrive assessed 05/04/23 08/15/23 09:55 Const General: no acute distress and alert HENMT Ears: TM's normal bilaterally and EAC's normal Throat: Yes posterior oropharynx normal and Yes tonsils normal (no TP congestion noted) Neck Neck: Yes no lymphadenopathy and Yes supple Thyroid: Thyroid normal Resp Auscultation: clear to auscultation bilaterally, no rales and no wheezes Cardio Rate: regular rate Rhythm: regular rhythm Heart sounds: no murmurs GI Palpation (GI): Soft to palpation and nontender Auscultation: normal bowel sounds General: Yes no CVA tenderness Back/Spine/Pelvis Back: no CVA tenderness Thoracic/Lumbar Spine: lumbar spinal tenderness Skin Rashes: no rashes Extrem General: Yes no clubbing, cyanosis or edema Results Reviewed Results Reviewed: Laboratory Tests 08/13/23 08/13/23 07:36 07:37 WBC 4.7 L Hgb 12.5 Hct 37.3 Plt Count 204 Sodium 143 Potassium 4.6 Creatinine 1.08 Estimated GFR 50 Fasting Glucose 123 H Hemoglobin A1c % 6.1 H Calcium 10.3 H D AST 19 ALT 18 Triglycerides 139 Cholesterol 181 LDL Cholesterol, Calc 96 HDL Cholesterol 58 Vitamin B12 1787 H 25-OH Vitamin D Total 63.7 TSH 0.78 Free T4 0.92 Ur Specific [place] 1.010 Urine Protein Negative Urine Glucose (UA) Negative Urine Blood Negative Urine Nitrite Negative Ur Leukocyte Esterase Negative Assessment and Plan Assessment & Plan (1) Pure hypercholesterolemia: Code(s): E78.00 - Pure hypercholesterolemia, unspecified Plan: Results of her labs done a couple of days ago reviewed and discussed with patient Reinforced low cholesterol diet Continue Lovastatin 40 mg QD Will recheck her labs and fasting lipids in 4 months for follow-up (2) Type 2 diabetes mellitus with diabetic chronic kidney disease: Code(s): E11.22 - Type 2 diabetes mellitus with diabetic chronic kidney disease Qualifiers: Diabetes mellitus senior living insulin use: without termite control servicer use Chronic kidney disease stage: stage 3 (moderate) Chronic kidney disease stage 3 subtype: stage 3a (GFR 45-59) Qualified Code(s): E11.21 - Type 2 diabetes mellitus with diabetic nephropathy; N18.31 - Chronic kidney disease, stage 3a Plan: Her HgbA1c appears to have gone up slightly to 6.1% on her recent labs (was previously steady at 5.6% a few months ago) - goal is < 7.0% but ideally <6.5% Reinforced diabetic diet Continue Jentadueto 2.5-500 mg BID (3) Benign essential hypertension: Code(s): I10 - Essential (primary) hypertension Plan: Reinforced low sodium diet -? goal is systolic BP of at least 130 to 140 mm or less Continue Enalapril 2.5 mg QD (4) Chronic kidney disease (CKD), stage III (moderate): Code(s): N18.30 - Chronic kidney disease, stage 3 unspecified Qualifiers: Chronic kidney disease stage 3 subtype: stage 3a (GFR 45-59) Qualified Code(s): N18.31 - Chronic kidney disease, stage 3a Plan: Stable -? will continue to monitor her GFR and renal function routinely (5) Acquired hypothyroidism: Code(s): E03.9 - Hypothyroidism, unspecified Plan: Continue Levothyroxine 100 mcg QD Will continue to monitor her TFTs regularly (6) Iron deficiency anemia: Code(s): D50.9 - Iron deficiency anemia, unspecified Qualifiers: Iron deficiency anemia type: unspecified iron deficiency Qualified Code(s): D50.9 - Iron deficiency anemia, unspecified Plan: Corrected - her H/H remained normal on her recent labs Continue Ferrous Sulfate 325 mg QD Will continue to monitor her CBC regularly (7) Asthma: Code(s): J45.909 - Unspecified asthma, uncomplicated Qualifiers: Asthma severity: mild Asthma persistence: intermittent Asthma complication type: uncomplicated Qualified Code(s): J45.20 - Mild intermittent asthma, uncomplicated Plan: Stable Continue Albuterol HFA 2 puffs 4 times a day as needed; uses her nebulizer as needed (8) Constipation: Code(s): K59.00 - Constipation, unspecified Qualifiers: Constipation type: unspecified constipation type Qualified Code(s): K59.00 - Constipation, unspecified Plan: Encouraged again on increased oral fluids and dietary fiber Abdominal x-rays done back in January 2023 showed (+) mild to moderate stool burden Continue Miralax 17 gm at half dose daily or 17 gm every other day (patient had diarrhea in the past when she took it daily) and Senna 8.6 mg BID PRN (9) Low back pain: Code(s): M54.5 - Low back pain Qualifiers: Chronicity: unspecified Back pain laterality: midline Sciatica presence: unspecified whether sciatica present Qualified Code(s): M54.5 - Low back pain Plan: Lumbar spine and hip x-rays done back in January 2023 revealed (+) multilevel mild lumbar spondylosis, with slight thoracolumbar levoscoliosis. There are mild degenerative changes noted in both hips Reinforced activity and weight lifting restrictions Continue Tramadol 50 mg Q 12 hours PRN for pain - Rx refilled (10) Vitamin B12 deficiency: Code(s): E53.8 - Deficiency of other specified B group vitamins Plan: Continue VItamin B12 500 mcg QD (11) Vitamin D deficiency: Code(s): E55.9 - Vitamin D deficiency, unspecified Plan: Continue Vitamin D3 1000 units QD (12) Primary osteoarthritis, left shoulder: Code(s): M19.012 - Primary osteoarthritis, left shoulder Plan: States that Tramadol helps with her shoulder pain and keep the pain manageable (13) Primary insomnia: Code(s): F51.01 - Primary insomnia Plan: Sleep hygiene reinforced Continue Trazodone 100 mg 2 tablets at bedtime daily as needed and Melatonin 5 mg 1 capsule at bedtime as needed (14) Depression: Code(s): F32.9 - Major depressive disorder, single episode, unspecified Qualifiers: Depression Type: major depressive disorder Major depression recurrence: recurrent Active/Remission status: currently active Major depression episode severity: unspecified Qualified Code(s): F33.9 - Major depressive disorder, recurrent, unspecified Plan: Continue Sertraline 100 mg 2 tablets QD Follow-up with Psychiatry as scheduled (15) Obesity (BMI 30-39.9): Code(s): E66.9 - Obesity, unspecified Plan: Reinforced diet/exercise as tolerated/lose weight Plan Follow up in 4 months Orders: Orders Comprehensive [place]. Panel Fast 4 Months E78.00 - Pure hypercholesterolemia, unspecified Lipid Panel 4 Months E78.00 - Pure hypercholesterolemia, unspecified Free T4 (Free Thyroxine) 4 Months E03.9 - Hypothyroidism, unspecified UA CC w/rflx Micro + Cult 4 Months R30.0 - Dysuria Thyroid Stimulating Hormone 4 Months E03.9 - Hypothyroidism, unspecified Vitamin B12 and Folate 4 Months E53.8 - Deficiency of other specified B group vitamins Hemoglobin A1c 4 Months E11.9 - Type 2 diabetes mellitus without complications Complete Blood Count Auto Diff 4 Months D64.9 - Anemia, unspecified Medications: Refilled tramadol 50 mg PO Q12H 30 days PRN 60 tabs 2RF pain M54.5 - Low back pain Coding Level of Care Code Est Pt Level 4 (08170) Diagnoses Pure hypercholesterolemia E78.00 Type 2 diabetes mellitus with stage 3a chronic kidney disease, without long-term current use of insulin E11.21; N18.31 Diabetes mellitus termite control servicer insulin use: without termite control servicer use Chronic kidney disease stage: stage 3 (moderate) Chronic kidney disease stage 3 subtype: stage 3a (GFR 45-59) Benign essential hypertension I10 Stage 3a chronic kidney disease N18.31 Chronic kidney disease stage 3 subtype: stage 3a (GFR 45-59) Acquired hypothyroidism E03.9 Iron deficiency anemia, unspecified iron deficiency anemia type D50.9 Iron deficiency anemia type: unspecified iron deficiency Mild intermittent asthma without complication J45.20 Asthma severity: mild Asthma persistence: intermittent Asthma complication type: uncomplicated Constipation, unspecified constipation type K59.00 Constipation type: unspecified constipation type Midline low back pain, unspecified chronicity, unspecified whether sciatica present M54.5 Chronicity: unspecified Back pain laterality: midline Sciatica presence: unspecified whether sciatica present Vitamin B12 deficiency E53.8 Vitamin D deficiency E55.9 Primary osteoarthritis, left shoulder M19.012 Primary insomnia F51.01 Episode of recurrent major depressive disorder, unspecified depression episode severity F33.9 Depression Type: major depressive disorder Major depression recurrence: recurrent Active/Remission status: currently active Major depression episode severity: unspecified Obesity (BMI 30-39.9) E66.9
== END 2023-08-15 10:33 | disposition home or self-care (01) ==
PROVIDERS: PCP Internal Medicine; Visit Provider Internal Medicine
DX: I12.9 Hypertensive chronic kidney disease with stage 1 through stage 4 chronic kidney disease, or unspecified chronic kidney disease (principal); E11.21 Type 2 diabetes mellitus with diabetic nephropathy; F33.9 Major depressive disorder, recurrent, unspecified; N18.31 Chronic kidney disease, stage 3a; E78.00 Pure hypercholesterolemia, unspecified; E03.9 Hypothyroidism, unspecified; D50.9 Iron deficiency anemia, unspecified; J45.20 Mild intermittent asthma, uncomplicated; K59.00 Constipation, unspecified; M54.50 Low back pain, unspecified; E53.8 Deficiency of other specified B group vitamins; E55.9 Vitamin D deficiency, unspecified
CPT/HCPCS: 99214

== ENCOUNTER 2023-12-18 07:41 | Outpatient (REF) | payer OTHER, SELFPAY ==
[2023-12-18 07:52] LABS: MANUAL DIFF FLAG NO
[2023-12-18 08:38] LABS: Basophils Absolute Auto 0.1 X10*3/uL (0.0-0.2); Basophils Percent Auto 0.8 % (0-2); Eosinophils Absolute Auto 1.1 X10*3/uL (0.0-0.4); Eosinophils Percent Auto 14.4 % (0-4); Hematocrit 37.8 % (37.0-47.0); Hemoglobin 12.4 g/dl (12.0-16.0); Imm Gran Abs Auto 0.03 X10*3/uL (0.00-0.03); Imm Gran Pct Auto 0.4 % (0.0-0.4); Lymphocytes Absolute Auto 3.1 X10*3/uL (1.2-4.9); Mean Corpuscular HGB Conc 32.8 g/dl (31.0-35.0); Mean Corpuscular Hemoglobin 29.7 pg (27.0-33.0); Mean Corpuscular Volume 90.4 fL (80.0-98.0); Mean Platelet Volume 9.5 fL (9.4-12.3); Monocytes Absolute Auto 0.6 X10*3/uL (0.1-1.2); Monocytes Percent Auto 7.7 % (2-11); Neutrophils Absolute Auto 2.5 x10*3/uL (2.0-8.3); Neutrophils Percent Auto 33.7 % (45-73); Platelet Count 239 X10*3/uL (160-400); Red Blood Count 4.18 X10*6/uL (4.20-5.50); Red Cell Distribution Width 13.4 % (11.0-16.0); White Blood Count 7.3 X10*3/uL (4.8-10.8)
[2023-12-18 08:55] LABS: Estimated Average Glucose 126 mg/dL
[2023-12-18 09:29] LABS: Alanine Aminotransferase 14 U/L (0-31); Albumin Level 4.3 g/dL (3.5-5.0); Alkaline Phosphatase 33 U/L (39-117); Anion Gap 13 (12-20); Aspartate Amino Transferase 18 U/L (5-31); Bilirubin Total 0.2 mg/dL (0.0-1.0); Blood Urea Nitrogen 17 mg/dL (9-16); Calcium 9.6 mg/dL (8.4-10.2); Carbon Dioxide 26 mmol/L (22-29); Chloride 107 mmol/L (96-108); Cholesterol 165 mg/dL (<200); Estimated Glomerular Filt Rate 49; Glucose Fasting 106 mg/dL (60-99); HDL Cholesterol 51 mg/dL (>40); LDL Cholesterol Calculated 90 mg/dL (<100); Potassium 4.5 mmol/L (3.3-5.1); Sodium 141 mmol/L (135-145); Total Protein 7.1 g/dL (6.5-8.0); Triglycerides 121 mg/dL (<150)
[2023-12-18 09:46] LABS: Free T4 (Free Thyroxine) 0.87 ng/dL (0.71-1.85); Thyroid Stimulating Hormone 2.04 uIU/mL (0.32-4.0)
[2023-12-18 09:53] LABS: Folate 5.9 ng/mL (> or = 4.0); Vitamin B12 1915 pg/mL (200-900)
[2023-12-18 09:54] LABS: Appearance Urine Clear; Color Urine Yellow; Glucose Urine UA Negative (Negative); Leukocyte Esterase Urine Negative (Negative); Nitrite Urine Negative (Negative); Urine Blood Negative (Negative); Urine Ketones Negative (Negative); Urine Protein Negative (Neg-Trace)
== END 2023-12-18 07:42 | disposition home or self-care (01) ==
LOC: HO.LAB 07:41
PROVIDERS: PCP Internal Medicine; Visit Provider Internal Medicine
DX: E03.9 Hypothyroidism, unspecified (principal); E78.00 Pure hypercholesterolemia, unspecified; R30.0 Dysuria; E53.8 Deficiency of other specified B group vitamins; E11.9 Type 2 diabetes mellitus without complications; D64.9 Anemia, unspecified
CPT/HCPCS: 36415; 80053; 80061; 81003; 82607; 82746; 83036; 84439; 84443; 85025

== ENCOUNTER 2023-12-20 10:45 | Outpatient (AMB) | payer OTHER, SELFPAY ==
[2023-12-20 10:54] VITALS: BP 118/78; PULSE 86; O2SAT 95; BMI 33.1
--- NOTE | 2023-12-20 10:54 | A.OFFPC_ITS ---
Vital Signs 12/20/23 10:54 Height 4 ft 9 in Weight 153 lb 2 oz BMI 33.1 BP 118/78 Blood Pressure Location Lt brachial Position Sitting Pulse 86 Pulse Source Pulse Oximeter Pulse Oximetry (%) 95 Oxygen Delivery Method Room Air Intake Visit Reasons: 4 Month F/U - see comments Bearingizer Required: No Accompanied by: Self / Same As Patient Allergies ibuprofen [IBUPROFEN] Allergy (Unknown, Verified 12/20/23 11:29) swelling BuPROPion HCl Allergy (Unknown, Uncoded 12/20/23 11:29) unknown Cortisone Allergy (Unknown, Uncoded 12/20/23 11:29) Unknown Medication List - Last Reconciled 12/20/23 by Rahul Beaulieu MD cetirizine (Zyrtec) 10 mg PO DAILY PRN 90 days cholecalciferol (vitamin D3) 50 mcg PO DAILY 90 days cyanocobalamin (vitamin B-12) 500 mcg PO DAILY diclofenac sodium 1% (Voltaren Arthritis Pain) 4 grams topical QID enalapril maleate 2.5 mg PO DAILY 90 days ferrous sulfate 325 mg PO DAILY fluticasone propionate 50 mcg/actuation 1 spray intranasal DAILY 30 days levothyroxine 100 mcg PO DAILY 90 days lidocaine 5% 1 patch topical DAILY linagliptin-metformin 2.5-500 mg (Jentadueto) 1 tab PO BID lovastatin 40 mg PO DAILY 90 days naproxen 500 mg PO BID PRN 30 days omeprazole 20 mg PO DAILY 30 days polyethylene glycol 3350 (Miralax) 17 grams PO DAILY sennosides (senna) 8.6 mg PO BID PRN sertraline 200 mg (2 x 100 mg) PO DAILY tramadol 50 mg PO Q12H PRN 30 days trazodone 200 mg (2 x 100 mg) PO BEDTIME PRN 90 days triamcinolone acetonide 0.5% 1 appl topical BID PRN Tobacco use date assessed: 12/20/23 Fall risk assessment: 2 + Falls in past year Last assessed Fall Risk: 12/20/23 Dental Screening Dental Screen Date: 12/20/23 Did you have a dental visit in the last 12 months?: No Did you have a dental problem in the last 6 months where you did not have access to dental care?: No Was dental information given to patient?: Patient has dentist HPI 4 Month F/U - see comments HPI Details Patient comes in today for her follow up visit Relates that she tested (+) for COVID a few weeks ago at the end of October / early November 2023 Her daughter states that they reached out to the on-call doctor and was supposedly advised to start taking Paxlovid but it was reportedly not called in to the pharmacy so patient did not start the Rx Recalls that she was experiencing SOB while she had COVID but this was mild and that most of her symptoms gradually cleared up over the next couple of weeks except for mild SOB and sensation of chest congestion, which have lingered/persisted since States that she has been feeling fatigued often lately but denies any fever or sore throat She denies any headaches or dizziness Denies any exertional chest pains; reports (+) mild LYON No nausea/vomiting but recalls that she was experiencing a lot of heartburns and on and off abdominal pain recently She was supposed eladia on Omeprazole but she was not taking this for a while and she started back on it a couple of weeks ago and states that her stomach is now starting to feel better No change in bowel habits noted She had her follow up labs done a couple of days ago - to discuss her results [facility] Medical History (Updated 12/21/23 @ 05:47 by Rahul Beaulieu MD) Lumbar degenerative disc disease Constipation Abdominal pain Menopause GERD (gastroesophageal reflux disease) Diabetes Cervical lymphadenitis Depression Low back pain Obesity (BMI 30-39.9) Primary insomnia Vitamin D deficiency Acquired hypothyroidism Primary osteoarthritis, left shoulder Asthma Vitamin B12 deficiency Iron deficiency anemia Benign essential hypertension Pure hypercholesterolemia Chronic kidney disease (CKD), stage III (moderate) Type 2 diabetes mellitus with diabetic chronic kidney disease Surgical History History of lipoma History of colonoscopy History of carpal tunnel release Family History Father Advanced cardiac disease Diabetes Mother Lung cancer Family/Other Diabetes Hypertension High cholesterol Social History Housing: House Alcohol intake: never Patient Tobacco Use Status: Former Tobacco user Tobacco use type: Cigarette e-Cigarette/Vaping Use: Never Used Second Hand Smoke Exposure: Yes service: No Current occupational status: retired Cognitive needs: No Hearing needs: No Vision needs: Yes Questionnaire PHQ-9 Over the last 2 weeks, how often have you been bothered by any of the following problems? 1. Little interest or pleasure in doing things: not at all 2. Feeling down, depressed, or hopeless: not at all 3. Trouble falling or staying asleep, or sleeping too much: not at all 4. Feeling tired or having little energy: not at all 5. Poor appetite or overeating: not at all 6. Feeling bad about yourself - or that you are a failure or have let yourself or your family down: not at all 7. Trouble concentrating on things, such as reading the newspaper or watching television: not at all 8. Moving or speaking so slowly that other people could have noticed. Or the opposite - being so fidgety or restless that you have been moving around a lot more than usual: not at all 9. Thoughts that you would be better off or of hurting yourself in some way: not at all Total score: 0 Depression Screening Interpretation: Negative Depression Screening Done: Yes 89418 - PHQ-9 Billing: Yes Source: Developed by Drs. Eligio Cox, Viry Guevara, Vishal Quinteros and colleagues, with an educational carolin from [employer]. Thrive Questionnaire Date Thrive assessed: 12/20/23 I am a: Patient What is your living situation today?: I have a steady place to live Within the past 12 months, did the food you bought not last and you didn't have the money to get more?: Never true Within the past 12 months, did you worry whether your food would run out before you got money to buy more?: Never true Do you have trouble paying for medicines?: No Do you have trouble getting transportation to medical appointments?: No Do you have trouble paying your heating and electricity bill?: No Do you have trouble taking care of your child, family member or friend?: No Do you have trouble with day-to-day activities such as bathing, preparing meals, shopping, managing finances, etc.?: No Are you currently unemployed and looking for a job?: No Are you interested in more education?: No Please select the resources that you would like help with: None Currently or been in a relationship where the following occur: No concerns reported THRIVE Score: 0 AUDIT C Alcohol Use Questionnaire (AUDIT-C) 1. How often do you have a drink containing alcohol?: Never 3. How often do you have six or more drinks on one occasion?: Never Total Score: 0 Score Reviewed/Action Taken: Yes ARNOLDO-7 AMB Questionnaire ARNOLDO-7 Date ARNOLDO - 7 assessed: 12/20/23 Feeling nervous, anxious, or on edge: 0 = Not at all Not being able to stop or control worryin = Not at all Worrying too much about different things: 0 = Not at all Trouble relaxin = Not at all Being so restless that it is hard to sit still: 0 = Not at all Becoming easily annoyed or irritable: 0 = Not at all Feeling afraid as if something awful might happen: 0 = Not at all Total ARNOLDO-7 score (0-4 normal; 5-9 mild; 10-14 moderate; 15-21 severe): 0 Source: Developed by Drs. Eligio Cox, Viry Guevara, Vishal Quinteros and colleagues, with an educational carolin from [employer]. Review of Systems Const Denies chills, Denies difficulty sleeping (Rx helps), Reports fatigue, Denies fever(s) and Denies headache(s) ENT Denies dysphagia, Denies dizziness, Denies otalgia, Denies headache(s), Denies neck pain, Denies odynophagia and Denies sore throat Card Denies chest pain, Denies palpitations and Reports dyspnea on exertion (mild) Resp Reports chest congestion (mild), Reports cough (on and off, mostly non- productive), Reports dyspnea on exertion (mild) and Denies wheezing GI Reports abdominal pain (improving with Omeprazole), Reports constipation (on and off ), Denies dysphagia, Reports heartburn (improving with Omeprazole), Denies diarrhea, Denies nausea, Denies odynophagia and Denies vomiting Denies nocturia, Denies dysuria and Denies urinary urgency Musc Reports back pain (over the lumbar spine and paraspinal areas bilaterally - chronic), Reports arthralgias (left shoulder), Denies neck pain and Reports stiffness Skin/Breast Denies rash Neuro Denies dizziness and Denies headache(s) Psych Denies anxiety Endo Reports fatigue and Denies palpitations Aller/Immun Denies wheezing Physical exam (Primary Care) Vital Signs: Last Vital Signs Pulse 86 12/20/23 10:54 BP 118/78 12/20/23 10:54 Pulse Ox 95 12/20/23 10:54 Oxygen Delivery Method Room Air 12/20/23 10:54 BMI result Body Mass Index 33.1 Tobacco/Smoking Status: Tobacco use Status Tobacco use date assessed 12/20/23 12/20/23 11:02 Patient Tobacco Use Status Former Tobacco user 12/20/23 11:02 Tobacco use type Cigarette 12/20/23 11:02 e-Cigarette/Vaping Use Never Used 12/20/23 11:02 PHQ-9: PHQ-9 Score PHQ-9: Total score 0 12/20/23 11:31 Depression Screening Interpretation: Negative Thrive Assessment: Date of Thrive Assessment Date Thrive assessed 12/20/23 12/20/23 11:02 Currently or been in a relationship where the following occur: No concerns reported Const General: no acute distress and alert HENMT Ears: TM's normal bilaterally and EAC's normal Throat: Yes posterior oropharynx normal and Yes tonsils normal (no TP congestion noted) Neck Neck: Yes no lymphadenopathy and Yes supple Thyroid: Thyroid normal Resp Auscultation: no rales, rhonchi (occasional), no wheezes and diminished lung sounds (slightly) bilateral Cardio Rate: regular rate Rhythm: regular rhythm Heart sounds: no murmurs GI Palpation (GI): Soft to palpation and nontender Auscultation: normal bowel sounds General: Yes no CVA tenderness Back/Spine/Pelvis Back: no CVA tenderness Thoracic/Lumbar Spine: lumbar spinal tenderness Skin Rashes: no rashes Extrem General: Yes no clubbing, cyanosis or edema Results Reviewed Results Reviewed: Laboratory Tests 08/13/23 12/18/23 12/18/23 07:37 07:50 07:51 WBC 7.3 Hgb 12.4 Hct 37.8 Plt Count 239 Sodium 141 Potassium 4.5 Creatinine 1.09 Estimated GFR 49 Fasting Glucose 106 H Hemoglobin A1c % 6.0 Calcium 9.6 D AST 18 ALT 14 Vitamin B12 1915 H 25-OH Vitamin D Total 63.7 TSH 2.04 Free T4 0.87 Ur Specific [place] 1.010 Urine Protein Negative Urine Glucose (UA) Negative Urine Blood Negative Urine Nitrite Negative Ur Leukocyte Esterase Negative Assessment and Plan Assessment & Plan (1) Pure hypercholesterolemia: Code(s): E78.00 - Pure hypercholesterolemia, unspecified Plan: Results of her labs done a couple of days ago reviewed and discussed with patient Reinforced low cholesterol diet Continue Lovastatin 40 mg QD Will recheck her labs and fasting lipids in 4 months for follow-up (2) Type 2 diabetes mellitus with diabetic chronic kidney disease: Code(s): E11.22 - Type 2 diabetes mellitus with diabetic chronic kidney disease Qualifiers: Chronic kidney disease stage: stage 3 (moderate) Chronic kidney disease stage 3 subtype: stage 3a (GFR 45-59) Diabetes mellitus parts counterman insulin use: without parts counterman use Qualified Code(s): E11.21 - Type 2 diabetes mellitus with diabetic nephropathy; N18.31 - Chronic kidney disease, stage 3a Plan: Her HgbA1c was at 6.0% on her labs done a couple of days ago (was previously at 6.1% a few months ago) - goal is < 7.0% but ideally <6.5% Reinforced diabetic diet Continue Jentadueto 2.5-500 mg BID (3) Benign essential hypertension: Code(s): I10 - Essential (primary) hypertension Plan: Reinforced low sodium diet -? goal is systolic BP of at least 130 to 140 mm or less Continue Enalapril 2.5 mg QD (4) Chronic kidney disease (CKD), stage III (moderate): Code(s): N18.30 - Chronic kidney disease, stage 3 unspecified Qualifiers: Chronic kidney disease stage 3 subtype: stage 3a (GFR 45-59) Qualified Code(s): N18.31 - Chronic kidney disease, stage 3a Plan: Stable -? will continue to monitor her GFR and renal function routinely (5) Acquired hypothyroidism: Code(s): E03.9 - Hypothyroidism, unspecified Plan: Her TFTs were normal on her recent labs Continue Levothyroxine 100 mcg QD Will continue to monitor her TFTs regularly (6) Iron deficiency anemia: Code(s): D50.9 - Iron deficiency anemia, unspecified Qualifiers: Iron deficiency anemia type: unspecified iron deficiency Qualified Code(s): D50.9 - Iron deficiency anemia, unspecified Plan: Corrected - her H/H have remained normal on her recent labs Continue Ferrous Sulfate 325 mg QD Will continue to monitor her CBC regularly (7) Asthma: Code(s): J45.909 - Unspecified asthma, uncomplicated Qualifiers: Asthma complication type: uncomplicated Asthma persistence: intermittent Asthma severity: mild Qualified Code(s): J45.20 - Mild intermittent asthma, uncomplicated Plan: Her asthma has been stable for a while but her lungs currently sound tight, with slightly diminished air entry on auscultation Continue Albuterol HFA 2 puffs 4 times a day as needed; uses her nebulizer as needed With her persistent respiratory symptoms since she contracted COVID a few weeks ago, will send her for chest x-rays [facility] for further evaluation (8) Constipation: Code(s): K59.00 - Constipation, unspecified Qualifiers: Constipation type: unspecified constipation type Qualified Code(s): K59.00 - Constipation, unspecified Plan: Encouraged again on increased oral fluids and dietary fiber Abdominal x-rays done back in January 2023 showed (+) mild to moderate stool burden Continue Miralax 17 gm at half dose daily or 17 gm every other day (patient had diarrhea in the past when she took it daily) and Senna 8.6 mg BID PRN (9) GERD (gastroesophageal reflux disease): Code(s): K21.9 - Gastro-esophageal reflux disease without esophagitis Qualifiers: Esophagitis presence: without esophagitis Qualified Code(s): K21.9 - Gastro-esophageal reflux disease without esophagitis Plan: Dietary restrictions reinforced Continue Omeprazole 20 mg QD With her recent GI symptoms, suspect that she may also have gastritis Will refer her to GI for further evaluation and management As she is also due for her repeat colonoscopy, will refer her to GI for this as well (10) Lumbar degenerative disc disease: Code(s): M51.36 - Other intervertebral disc degeneration, lumbar region Plan: Lumbar spine and hip x-rays done back in January 2023 revealed (+) multilevel mild lumbar spondylosis, with slight thoracolumbar levoscoliosis. There are mild degenerative changes noted in both hips Reinforced activity and weight lifting restrictions Continue Tramadol 50 mg Q 12 hours PRN for pain (11) Vitamin B12 deficiency: Code(s): E53.8 - Deficiency of other specified B group vitamins Plan: Continue VItamin B12 500 mcg but she is advised to try cutting this back to BIW dosing as her B12 level has increased significantly on her recent labs and her level is now >1900 (12) Vitamin D deficiency: Code(s): E55.9 - Vitamin D deficiency, unspecified Plan: Continue Vitamin D3 1000 units QD (13) Primary osteoarthritis, left shoulder: Code(s): M19.012 - Primary osteoarthritis, left shoulder Plan: States that Tramadol helps with her shoulder pain and keep the pain manageable (14) Primary insomnia: Code(s): F51.01 - Primary insomnia Plan: Sleep hygiene reinforced Continue Trazodone 100 mg 2 tablets at bedtime daily as needed although she feels that this has not been helping her as well as it used to lately She is again advised that she can try taking some OTC Melatonin 5 mg 1 capsule at bedtime as needed additionally to help her sleep better at night (15) Depression: Code(s): F32.9 - Major depressive disorder, single episode, unspecified Qualifiers: Active/Remission status: currently active Depression Type: major depressive disorder Major depression episode severity: unspecified Major depression recurrence: recurrent Qualified Code(s): F33.9 - Major depressive disorder, recurrent, unspecified Plan: Continue Sertraline 100 mg 2 tablets QD Follow-up with Psychiatry as scheduled (16) Obesity (BMI 30-39.9): Code(s): E66.9 - Obesity, unspecified Plan: Reinforced diet/exercise as tolerated/lose weight Plan Follow up in 4 months Orders: Orders Complete Blood Count Auto Diff 4 Months D64.9 - Anemia, unspecified Lipid Panel 4 Months E78.00 - Pure hypercholesterolemia, unspecified Free T4 (Free Thyroxine) 4 Months E03.9 - Hypothyroidism, unspecified Vitamin D 25-OH Total 4 Months E55.9 - Vitamin D deficiency, unspecified XR chest 2V /12/24 J98.8 - Other specified respiratory disorders, R06.00 - Dy spnea, unspecified Comprehensive [place]. Panel Fast 4 Months E78.00 - Pure hypercholesterolemia, unspecified Thyroid Stimulating Hormone 4 Months E03.9 - Hypothyroidism, unspecified UA CC w/rflx Micro + Cult 4 Months R30.0 - Dysuria Vitamin B12 and Folate 4 Months E53.8 - Deficiency of other specified B group vitamins Referrals Gastroenterology Referral K21.9 - Gastro-esophageal reflux disease without esophagitis, R10.30 - Lower abdominal pain, unspecified, Z12.11 - Encounter for screening for malignant neoplasm of colon Coding Level of Care Code Est Pt Level 4 (59406) Complex EM visit Add On G2211 Diagnoses Pure hypercholesterolemia E78.00 Type 2 diabetes mellitus with stage 3a chronic kidney disease, without long-term current use of insulin E11.21; N18.31 Chronic kidney disease stage: stage 3 (moderate) Chronic kidney disease stage 3 subtype: stage 3a (GFR 45-59) Diabetes mellitus senior living insulin use: without senior living use Benign essential hypertension I10 Stage 3a chronic kidney disease N18.31 Chronic kidney disease stage 3 subtype: stage 3a (GFR 45-59) Acquired hypothyroidism E03.9 Iron deficiency anemia, unspecified iron deficiency anemia type D50.9 Iron deficiency anemia type: unspecified iron deficiency Mild intermittent asthma without complication J45.20 Asthma complication type: uncomplicated Asthma persistence: intermittent Asthma severity: mild Constipation, unspecified constipation type K59.00 Constipation type: unspecified constipation type Gastroesophageal reflux disease without esophagitis K21.9 Esophagitis presence: without esophagitis Lumbar degenerative disc disease M51.36 Vitamin B12 deficiency E53.8 Vitamin D deficiency E55.9 Primary osteoarthritis, left shoulder M19.012 Primary insomnia F51.01 Episode of recurrent major depressive disorder, unspecified depression episode severity F33.9 Active/Remission status: currently active Depression Type: major depressive disorder Major depression episode severity: unspecified Major depression recurrence: recurrent Obesity (BMI 30-39.9) E66.9
== END 2023-12-20 11:48 | disposition home or self-care (01) ==
PROVIDERS: PCP Internal Medicine; Visit Provider Internal Medicine
DX: I12.9 Hypertensive chronic kidney disease with stage 1 through stage 4 chronic kidney disease, or unspecified chronic kidney disease (principal); E11.21 Type 2 diabetes mellitus with diabetic nephropathy; N18.31 Chronic kidney disease, stage 3a; F33.9 Major depressive disorder, recurrent, unspecified; E78.00 Pure hypercholesterolemia, unspecified; E03.9 Hypothyroidism, unspecified; D50.9 Iron deficiency anemia, unspecified; J45.20 Mild intermittent asthma, uncomplicated; K59.00 Constipation, unspecified; K21.9 Gastro-esophageal reflux disease without esophagitis; M51.36 Other intervertebral disc degeneration, lumbar region; E53.8 Deficiency of other specified B group vitamins
CPT/HCPCS: 99214; G2211

== ENCOUNTER 2023-12-20 11:54 | Outpatient (REF) | payer OTHER, SELFPAY ==
--- NOTE | ~2023-12-20 | XR_ITS ---
EXAMINATION: XR CHEST CLINICAL INFORMATION: Dyspnea, unspecified. Status post COVID. Still feeling short of breath. COMPARISON: 06/27/2019 TECHNIQUE: 2 views of the chest were obtained. FINDINGS: Small calcified granulomas in the right upper lobe are unchanged. No consolidation, pneumothorax, or pleural effusion. Cardiac and mediastinal contours are normal. Degenerative disc disease in the thoracic spine. Osteoarthritis is present in the acromioclavicular and glenohumeral joints. XR/XR chest 2V IMPRESSION: No acute pulmonary findings. Electronically signed by: Tio Rodriguez MD 12/20/2023 03:28 PM EDT
== END 2023-12-20 11:55 | disposition home or self-care (01) ==
LOC: HO.XRAY 11:54
PROVIDERS: PCP Internal Medicine; Visit Provider Internal Medicine
DX: R06.00 Dyspnea, unspecified (principal); J98.8 Other specified respiratory disorders
CPT/HCPCS: 71046

== ENCOUNTER 2024-04-08 06:47 | Day surgery (SDC) | payer OTHER, SELFPAY ==
[2024-04-04 13:29] VITALS: BMI 33.1
[2024-04-08 07:40] VITALS: BMI 32.5
[2024-04-08 07:52] VITALS: BP 98/68; PULSE 71; RESP 16; TEMP 36.8; O2SAT 95
[2024-04-08 08:02] LABS: Glucose, Whole Blood 117 mg/dL (60-115)
[2024-04-08] MEDS: Lactated Ringers 1,000 ML 80 ML IVCONT (08:04)
--- NOTE | 2024-04-08 08:11 | HO.ANESPROP2 ---
HPI - Anesthesia Eval Consult details Narrative: for endo and colon screen PMFSH Active Problems Active Problems: All Active Problems Lumbar degenerative disc disease (Acute) Pruritic erythematous rash (Acute) Constipation (Acute) Abdominal pain (Acute) Epigastric abdominal pain (Acute) Cataract (Acute) Preoperative clearance (Acute) Annual physical exam (Acute) Severe pain of left shoulder (Acute) Osteoarthritis of left shoulder (Acute) Arthritis of left shoulder region (Acute) Right shoulder pain (Acute) Left shoulder pain (Acute) Menopause (Acute) GERD (gastroesophageal reflux disease) (Acute) Sinusitis (Acute) Diabetes (Acute) Cervical lymphadenitis (Acute) Swelling of right side of face (Acute) Depression (Acute) Depression (Acute) Low back pain (Acute) Obesity (BMI 30-39.9) (Acute) Primary insomnia (Acute) Vitamin D deficiency (Acute) Acquired hypothyroidism (Acute) Primary osteoarthritis, left shoulder (Acute) Asthma (Acute) Vitamin B12 deficiency (Acute) Iron deficiency anemia (Acute) Benign essential hypertension (Acute) Pure hypercholesterolemia (Acute) Chronic kidney disease (CKD), stage III (moderate) (Acute) Type 2 diabetes mellitus with diabetic chronic kidney disease (Acute) Past Medical History Medical History Lumbar degenerative disc disease Constipation Abdominal pain Menopause GERD (gastroesophageal reflux disease) Diabetes Cervical lymphadenitis Depression Low back pain Obesity (BMI 30-39.9) Primary insomnia Vitamin D deficiency Acquired hypothyroidism Primary osteoarthritis, left shoulder Asthma Vitamin B12 deficiency Iron deficiency anemia Benign essential hypertension Pure hypercholesterolemia Chronic kidney disease (CKD), stage III (moderate) Type 2 diabetes mellitus with diabetic chronic kidney disease Family History Family History Father Advanced cardiac disease Diabetes Mother Lung cancer Family/Other Diabetes Hypertension High cholesterol Family history of problems with anesthesia: No Surgical History Surgical History History of lipoma History of colonoscopy History of carpal tunnel release History of Problems with Anesthesia: No Social History Social History Housing: House Alcohol intake: never Patient Tobacco Use Status: Former Tobacco user Tobacco use type: Cigarette e-Cigarette/Vaping Use: Never Used Second Hand Smoke Exposure: Yes Use of substances other than those prescribed or required for medical reasons: No Are you DNR?: No Advance Directives: No Advance Directives Information Provided: Yes Advance Directives on File: No Recently lost weight without trying: No Nutrition Risks: No Nutritional Risk Patient : No service: No Current occupational status: retired Cognitive needs: No Hearing needs: No Vision needs: Yes Meds Allergies Allergy/AdvReac Type Severity Reaction Status Date / Time ibuprofen [IBUPROFEN] Allergy Unknown swelling Verified 12/20/23 11:29 BuPROPion HCl Allergy Unknown unknown Uncoded 12/20/23 11:29 Cortisone Allergy Unknown Unknown Uncoded 12/20/23 11:29 Active Medications: Current Medications Lactated Ringer's (Lr) 1,000 mls @ 80 mls/hr IVCONT .[id number] Last Admin: 04/08/24 08:04 Dose: 80 mls/hr Exam Height,Weight and Vital Signs: Height 4 ft 9 in Weight 68.039 kg Last Vital Signs Temp 98.2 F 04/08/24 07:52 Pulse 71 04/08/24 07:52 Resp 16 04/08/24 07:52 BP 98/68 04/08/24 07:52 Pulse Ox 95 04/08/24 07:52 O2 Del Method Room Air 04/08/24 07:52 Pertinent Lab Results Pertinent Lab Results: Laboratory Tests 04/08/24 07:59 POC Glucose 117 H Airway Mallampati Class: III TM Dist: >3cm Neck ROM: Full Denture: Upper Heart: rrr Lungs: cta Assessment and Plan Assessment Anesthesia Assessment: Anesthesia Plan Discussed Final Anesthetic Review Family History of Problems with Anesthesia: No History of Problems with Anesthesia: No NPO: Yes ASA Class: III Final Preanesthetic Review: No Changes in Pt Med Stat, Meds/Allgs Chart Reviewed, Consent Obtained/Reviewed and Anes Risks/Benef Reviewed Patient Risk: Intermediate Procedure Risk: Low Anesthetic Plan Anesthetic Plan: MAC: Disposition: Standard PACU
--- NOTE | 2024-04-08 08:17 | MHC.SHP ---
Pre-Procedural Eval Section A - 24 Hr Update-Section A only Date of Service: 04/08/24 The patient is an INPATIENT: No Changes since office visit: No Cold of Flu in the past 2 weeks, No New Medical Problems, No Changes in Medication and No Patient answered all questions The patient has been examined within 24 hours of the surgical procedure. The History & Physical has been completed within 30 days and I have reviewed it.: Yes Section B - Complete if H&P > 30 days Chief Complaint: Enteroptosis,gerd,abdominal pain, Allergies: Allergies Allergy/AdvReac Type Severity Reaction Status Date / Time ibuprofen [IBUPROFEN] Allergy Unknown swelling Verified 12/20/23 11:29 BuPROPion HCl Allergy Unknown unknown Uncoded 12/20/23 11:29 Cortisone Allergy Unknown Unknown Uncoded 12/20/23 11:29 Plan I have reviewed the history and physical and performed a pertinent physical examination on my patient. No changes have occurred unless specified. Time Spent With Patient Time: Total time managing care of this patient today ____ minutes.
[2024-04-08 09:02] VITALS: BP 102/56; PULSE 68; RESP 18; TEMP 36.6; O2SAT 96
[2024-04-08 09:17] VITALS: BP 106/58; PULSE 71; RESP 16; TEMP 36.6; O2SAT 96
--- NOTE | 2024-04-08 09:25 | OP_ITS ---
DATE OF SERVICE: 04/08/2024 SURGEON: Kwadwo Worthington MD INDICATIONS: Abdominal pain and gastroesophageal reflux disease. PREOPERATIVE DIAGNOSIS: POSTOPERATIVE DIAGNOSIS: PROCEDURE PERFORMED: ESTIMATED BLOOD LOSS: COMPLICATIONS: ANESTHESIA: Monitored anesthesia care. ASSISTANTS: SPECIMENS: PROCEDURES PERFORMED: Upper endoscopy with biopsy, colonoscopy to the cecum with snare polypectomy. DESCRIPTION OF PROCEDURE: History and physical was performed. The risks and benefits of the procedure were explained to the patient. Informed consent was obtained. The patient was placed in the left lateral decubitus position. The Olympus video gastroscope was introduced into the esophagus, stomach, and duodenum. Examination was performed and the scope was removed. She was repositioned for colonoscopy. Digital rectal examination was performed and was found to be normal. The Olympus pediatric video colonoscope was introduced into the rectum and advanced to the cecum. The cecum was identified by transillumination, palpation, and identification of ileocecal valve. Examination was performed and the scope was removed. She tolerated the procedure well and was returned to recovery in stable condition. FINDINGS: Upper endoscopy, esophagus: The esophagus was normal. Stomach: The stomach was remarkable for diffuse erythema in the body consistent with gastritis. Duodenum: The bulb and second portion were normal. Biopsies were obtained from the EG junction and antrum. Colonoscopy: The terminal ileum was not examined. The visualized colonic mucosa was normal. The quality of prep was good. At the hepatic flexure, there was a small 5 mm polyp, this was removed with a cold snare. There was mild sigmoid diverticulosis. Retroflexed examination was normal. IMPRESSION: 1. Gastritis. 2. Colon polyp. RECOMMENDATION: Follow up the biopsy results. MD CINDI Ag/MODL / [id number]
== END 2024-04-08 10:17 | disposition home or self-care (01) ==
PROVIDERS: PCP Internal Medicine; Visit Provider Internal Medicine Gastroenterology
PROC: (CPT 45385; principal; 2024-04-08 08:30)
DX: Z12.11 Encounter for screening for malignant neoplasm of colon (principal); D12.3 Benign neoplasm of transverse colon; K63.4 Enteroptosis; K57.30 Diverticulosis of large intestine without perforation or abscess without bleeding; R63.4 Abnormal weight loss; Z68.30 Body mass index [BMI] 30.0-30.9, adult; K62.89 Other specified diseases of anus and rectum; R10.84 Generalized abdominal pain; K29.50 Unspecified chronic gastritis without bleeding; K21.9 Gastro-esophageal reflux disease without esophagitis; E11.22 Type 2 diabetes mellitus with diabetic chronic kidney disease; N18.30 Chronic kidney disease, stage 3 unspecified; E78.5 Hyperlipidemia, unspecified; E03.9 Hypothyroidism, unspecified; J45.909 Unspecified asthma, uncomplicated; Z79.51 Long term (current) use of inhaled steroids; Z79.1 Long term (current) use of non-steroidal anti-inflammatories (NSAID); Z79.84 Long term (current) use of oral hypoglycemic drugs; Z79.899 Other long term (current) drug therapy
CPT/HCPCS: 45385; 43239; 82947; 88305; 88313; 88342; J2003; J2704; J3010

== ENCOUNTER 2024-04-22 07:32 | Outpatient (REF) | payer OTHER, SELFPAY ==
[2024-04-22 07:50] LABS: MANUAL DIFF FLAG NO
[2024-04-22 08:21] LABS: Appearance Urine Clear; Color Urine Yellow; Glucose Urine UA Negative (Negative); Leukocyte Esterase Urine Trace (Negative); Nitrite Urine Negative (Negative); Specific Gravity - Urine <= 1.005 (1.005-1.025); UMIC TRIGGER UACC YES; Urine Blood Negative (Negative); Urine Ketones Negative (Negative); Urine Protein Negative (Neg-Trace)
[2024-04-22 08:22] LABS: Basophils Absolute Auto 0.1 X10*3/uL (0.0-0.2); Eosinophils Percent Auto 14.1 % (0-4); Hematocrit 37.1 % (37.0-47.0); Hemoglobin 12.5 g/dl (12.0-16.0); Imm Gran Abs Auto 0.01 X10*3/uL (0.00-0.03); Imm Gran Pct Auto 0.1 % (0.0-0.4); Lymphocytes Absolute Auto 3.4 X10*3/uL (1.2-4.9); Lymphocytes Percent Auto 48.9 % (20-40); Mean Corpuscular HGB Conc 33.7 g/dl (31.0-35.0); Mean Corpuscular Volume 89.2 fL (80.0-98.0); Mean Platelet Volume 9.5 fL (9.4-12.3); Monocytes Absolute Auto 0.5 X10*3/uL (0.1-1.2); Monocytes Percent Auto 7.2 % (2-11); Neutrophils Percent Auto 28.7 % (45-73); Platelet Count 241 X10*3/uL (160-400); Red Blood Count 4.16 X10*6/uL (4.20-5.50); Red Cell Distribution Width 12.8 % (11.0-16.0)
[2024-04-22 08:23] LABS: Bacteria Urine None Seen (None Seen); Hyaline Casts Urine 0-2 /LPF (0-2); RBC Urine 0-2 /HPF (0-2); Squamous Epithelial Cell Urine 0-2 /HPF (0-2); WBC Urine 0-5 /HPF (0-5)
[2024-04-22 08:57] LABS: Alanine Aminotransferase 17 U/L (0-31); Albumin Level 4.3 g/dL (3.5-5.0); Alkaline Phosphatase 35 U/L (39-117); Anion Gap 10 (12-20); Aspartate Amino Transferase 25 U/L (5-31); Bilirubin Total 0.3 mg/dL (0.0-1.0); Blood Urea Nitrogen 16 mg/dL (9-16); Calcium 9.4 mg/dL (8.4-10.2); Carbon Dioxide 30 mmol/L (22-29); Chloride 107 mmol/L (96-108); Cholesterol 207 mg/dL (<200); Estimated Glomerular Filt Rate 43; Glucose Fasting 85 mg/dL (60-99); HDL Cholesterol 62 mg/dL (>40); LDL Cholesterol Calculated 116 mg/dL (<100); Potassium 4.6 mmol/L (3.3-5.1); Sodium 142 mmol/L (135-145); Triglycerides 148 mg/dL (<150)
[2024-04-22 09:16] LABS: Free T4 (Free Thyroxine) 0.86 ng/dL (0.71-1.85); Thyroid Stimulating Hormone 18.71 uIU/mL (0.32-4.0); Vitamin D 25-OH Total 65.9 ng/mL (>30)
[2024-04-22 09:25] LABS: Folate 3.8 ng/mL (> or = 4.0); Vitamin B12 590 pg/mL (200-900)
[2024-04-22 09:42] LABS: Creatinine Urine 45.99 mg/dL; Microalbumin Urine < 5.0 mg/L
== END 2024-04-22 07:33 | disposition home or self-care (01) ==
LOC: HO.LAB 07:32
PROVIDERS: PCP Internal Medicine; Visit Provider Internal Medicine
DX: D64.9 Anemia, unspecified (principal); E03.9 Hypothyroidism, unspecified; E53.8 Deficiency of other specified B group vitamins; E78.00 Pure hypercholesterolemia, unspecified; E55.9 Vitamin D deficiency, unspecified; E11.9 Type 2 diabetes mellitus without complications
CPT/HCPCS: 36415; 80053; 80061; 81001; 82043; 82306; 82570; 82607; 82746; 84439; 84443; 85025

== ENCOUNTER 2024-04-25 10:47 | Outpatient (REF) | payer OTHER, SELFPAY ==
[2024-04-25 12:51] LABS: Appearance Urine Clear; Color Urine Yellow; Glucose Urine UA Negative (Negative); Leukocyte Esterase Urine Trace (Negative); Nitrite Urine Negative (Negative); PH 6.5 (5.0-9.0); Specific Gravity - Urine 1.015 (1.005-1.025); UMIC TRIGGER UACC YES; Urine Blood Negative (Negative); Urine Ketones Negative (Negative); Urine Protein Negative (Neg-Trace)
[2024-04-25 12:54] LABS: Bacteria Urine None Seen (None Seen); Hyaline Casts Urine 0-2 /LPF (0-2); RBC Urine 0-2 /HPF (0-2); Squamous Epithelial Cell Urine 0-2 /HPF (0-2); WBC Urine 0-5 /HPF (0-5)
[2024-04-25 12:54] LABS: Erythrocyte Sedimentation Rate 14 MM/HR (0-20)
[2024-04-26 17:33] LABS: Triiodothyronine T3 Total 81 ng/dL (76-181)
[2024-04-28 18:09] LABS: Thyroid Peroxidase Antibodies <1 IU/mL (<9)
== END 2024-04-25 10:48 | disposition home or self-care (01) ==
LOC: HO.LAB 10:47
PROVIDERS: PCP Internal Medicine; Visit Provider Internal Medicine
DX: E78.00 Pure hypercholesterolemia, unspecified (principal); E11.22 Type 2 diabetes mellitus with diabetic chronic kidney disease; I12.9 Hypertensive chronic kidney disease with stage 1 through stage 4 chronic kidney disease, or unspecified chronic kidney disease; N18.31 Chronic kidney disease, stage 3a; E03.9 Hypothyroidism, unspecified; R79.89 Other specified abnormal findings of blood chemistry; D50.9 Iron deficiency anemia, unspecified; J45.20 Mild intermittent asthma, uncomplicated; K59.00 Constipation, unspecified; K21.9 Gastro-esophageal reflux disease without esophagitis; M51.360 Other intervertebral disc degeneration, lumbar region with discogenic back pain only; E53.8 Deficiency of other specified B group vitamins; E55.9 Vitamin D deficiency, unspecified; M19.012 Primary osteoarthritis, left shoulder; F51.01 Primary insomnia; F33.9 Major depressive disorder, recurrent, unspecified; E66.9 Obesity, unspecified; Z68.33 Body mass index [BMI] 33.0-33.9, adult; R30.0 Dysuria; Z79.899 Other long term (current) drug therapy
CPT/HCPCS: 36415; 81001; 83036; 84480; 85652; 86376; 96127; 99212

== ENCOUNTER 2024-04-25 10:47 | Outpatient (AMB) | payer OTHER, SELFPAY ==
--- NOTE | 2024-04-25 10:53 | A.OFFPC_ITS ---
Vital Signs 04/25/24 10:54 Height 4 ft 9 in Weight 153 lb BMI 33.1 BP 146/70 H Blood Pressure Location Lt brachial Position Sitting Pulse 77 Pulse Source Pulse Oximeter Pulse Oximetry (%) 97 Oxygen Delivery Method Room Air Intake Visit Reasons: 4 month f/u - see comments Aircraft Detail Draftsperson Required: Yes Aircraft Detail Draftsperson Language: Welsh Allergies ibuprofen [IBUPROFEN] Allergy (Unknown, Verified 04/25/24 15:13) swelling BuPROPion HCl Allergy (Unknown, Uncoded 04/25/24 15:13) unknown Cortisone Allergy (Unknown, Uncoded 04/25/24 15:13) Unknown Medication List - Last Reconciled 04/25/24 by Rahul Beaulieu MD cetirizine (Zyrtec) 10 mg PO DAILY PRN 90 days cholecalciferol (vitamin D3) 50 mcg PO DAILY 90 days cyanocobalamin (vitamin B-12) 500 mcg PO DAILY diclofenac sodium 1% (Voltaren Arthritis Pain) 4 grams topical QID enalapril maleate 2.5 mg PO DAILY 90 days ferrous sulfate 325 mg PO DAILY fluticasone propionate 50 mcg/actuation 1 spray intranasal DAILY 30 days levothyroxine 100 mcg PO DAILY 90 days lidocaine 5% 1 patch topical DAILY linagliptin-metformin 2.5-500 mg (Jentadueto) 1 tab PO BID lovastatin 40 mg PO DAILY 90 days naproxen 500 mg PO BID PRN 30 days omeprazole 20 mg PO DAILY 90 days polyethylene glycol 3350 (Miralax) 17 grams PO DAILY sennosides (senna) 8.6 mg PO BID PRN sertraline 200 mg (2 x 100 mg) PO DAILY tramadol 50 mg PO Q12H PRN 30 days trazodone 200 mg (2 x 100 mg) PO BEDTIME PRN 90 days triamcinolone acetonide 0.5% 1 appl topical BID PRN Tobacco use date assessed: 04/25/24 Fall risk assessment: No Falls in past year Last assessed Fall Risk: 04/25/24 Dental Screening Dental Screen Date: 04/25/24 Did you have a dental visit in the last 12 months?: Yes Did you have a dental problem in the last 6 months where you did not have access to dental care?: No Was dental information given to patient?: Patient has dentist HPI 4 month f/u - see comments HPI Details Patient comes in today for her follow up visit States that she feels okay She denies any headaches or dizziness Denies any chest pains, no increased SOB No nausea/vomiting, no abdominal pain No change in bowel habits noted She had her follow up labs done a few days ago - to discuss her results [facility] Medical History (Updated 04/25/24 @ 17:16 by Rahul Beaulieu MD) Lumbar degenerative disc disease Constipation Abdominal pain Menopause GERD (gastroesophageal reflux disease) Diabetes Cervical lymphadenitis Depression Low back pain Obesity (BMI 30-39.9) Primary insomnia Vitamin D deficiency Acquired hypothyroidism Primary osteoarthritis, left shoulder Asthma Vitamin B12 deficiency Iron deficiency anemia Benign essential hypertension Pure hypercholesterolemia Chronic kidney disease (CKD), stage III (moderate) Type 2 diabetes mellitus with diabetic chronic kidney disease Surgical History History of lipoma History of colonoscopy History of carpal tunnel release Family History Father Advanced cardiac disease Diabetes Mother Lung cancer Family/Other Diabetes Hypertension High cholesterol Social History Housing: House Alcohol intake: never Patient Tobacco Use Status: Former Tobacco user Tobacco use type: Cigarette e-Cigarette/Vaping Use: Never Used Second Hand Smoke Exposure: Yes service: No Current occupational status: retired Cognitive needs: No Hearing needs: No Vision needs: Yes Questionnaire PHQ-9 Over the last 2 weeks, how often have you been bothered by any of the following problems? 1. Little interest or pleasure in doing things: not at all 2. Feeling down, depressed, or hopeless: not at all 3. Trouble falling or staying asleep, or sleeping too much: not at all 4. Feeling tired or having little energy: not at all 5. Poor appetite or overeating: not at all 6. Feeling bad about yourself - or that you are a failure or have let yourself or your family down: not at all 7. Trouble concentrating on things, such as reading the newspaper or watching television: not at all 8. Moving or speaking so slowly that other people could have noticed. Or the opposite - being so fidgety or restless that you have been moving around a lot more than usual: not at all 9. Thoughts that you would be better off or of hurting yourself in some way: not at all Total score: 0 Depression Screening Interpretation: Negative Depression Screening Done: Yes 95244 - PHQ-9 Billing: Yes Source: Developed by Drs. Eligio Cox, Viry Guevara, Vishal Quinteros and colleagues, with an educational carolin from [employer]. Thrive Questionnaire Date Thrive assessed: 04/25/24 I am a: Patient What is your living situation today?: I have a steady place to live Within the past 12 months, did the food you bought not last and you didn't have the money to get more?: Never true Within the past 12 months, did you worry whether your food would run out before you got money to buy more?: Never true Do you have trouble paying for medicines?: No Do you have trouble getting transportation to medical appointments?: No Do you have trouble paying your heating and electricity bill?: No Do you have trouble taking care of your child, family member or friend?: No Do you have trouble with day-to-day activities such as bathing, preparing meals, shopping, managing finances, etc.?: No Are you currently unemployed and looking for a job?: No Are you interested in more education?: No Please select the resources that you would like help with: None Currently or been in a relationship where the following occur: No concerns reported THRIVE Score: 0 AUDIT C Alcohol Use Questionnaire (AUDIT-C) 1. How often do you have a drink containing alcohol?: Never 3. How often do you have six or more drinks on one occasion?: Never Total Score: 0 Score Reviewed/Action Taken: Yes ARNOLDO-7 AMB Questionnaire ARNOLDO-7 Date ARNOLDO - 7 assessed: 04/25/24 Feeling nervous, anxious, or on edge: 0 = Not at all Not being able to stop or control worryin = Not at all Worrying too much about different things: 0 = Not at all Trouble relaxin = Not at all Being so restless that it is hard to sit still: 0 = Not at all Becoming easily annoyed or irritable: 0 = Not at all Feeling afraid as if something awful might happen: 0 = Not at all Total ARNOLDO-7 score (0-4 normal; 5-9 mild; 10-14 moderate; 15-21 severe): 0 Source: Developed by Drs. Eligio Cox, Viry Guevara, Vishal Quinteros and colleagues, with an educational carolin from [employer]. Review of Systems Const Denies chills, Denies difficulty sleeping (Rx helps), Reports fatigue, Denies fever(s) and Denies headache(s) ENT Denies dysphagia, Denies dizziness, Denies otalgia, Denies headache(s), Denies neck pain, Denies odynophagia and Denies sore throat Card Denies chest pain, Denies palpitations and Reports dyspnea on exertion (mild) Resp Denies chest congestion, Denies cough and Reports dyspnea on exertion (mild) GI Denies abdominal pain (symptoms improved with Omeprazole), Reports constipation (on and off ), Denies dysphagia, Denies heartburn (improved with Omeprazole), Denies diarrhea, Denies nausea, Denies odynophagia and Denies vomiting Denies nocturia, Denies dysuria and Denies urinary urgency Musc Reports back pain (over the lumbar spine and paraspinal areas bilaterally - chronic), Reports arthralgias (left shoulder, on and off), Denies neck pain and Reports stiffness Skin/Breast Denies rash Neuro Denies dizziness and Denies headache(s) Psych Denies anxiety Endo Reports fatigue and Denies palpitations Physical exam (Primary Care) Vital Signs: Last Vital Signs Pulse 77 04/25/24 10:54 BP 146/70 H 04/25/24 10:54 Pulse Ox 97 04/25/24 10:54 Oxygen Delivery Method Room Air 04/25/24 10:54 BMI result Body Mass Index 33.1 Tobacco/Smoking Status: Tobacco use Status Tobacco use date assessed 04/25/24 04/25/24 10:56 Patient Tobacco Use Status Former Tobacco user 04/25/24 10:56 Tobacco use type Cigarette 04/25/24 10:56 e-Cigarette/Vaping Use Never Used 04/25/24 10:56 PHQ-9: PHQ-9 Score PHQ-9: Total score 0 04/25/24 11:33 Depression Screening Interpretation: Negative Thrive Assessment: Date of Thrive Assessment Date Thrive assessed 04/25/24 04/25/24 10:56 Currently or been in a relationship where the following occur: No concerns reported Const General: no acute distress and alert HENMT Ears: TM's normal bilaterally and EAC's normal Throat: Yes posterior oropharynx normal and Yes tonsils normal (no TP congestion noted) Neck Neck: Yes supple and No lymphadenopathy Thyroid: Thyroid normal Resp Auscultation: no crackles, no rales, no wheezes and diminished lung sounds (slightly) bilateral Cardio Rate: regular rate Rhythm: regular rhythm Heart sounds: no murmurs GI Palpation (GI): Soft to palpation and nontender Auscultation: normal bowel sounds General: Yes no CVA tenderness Back/Spine/Pelvis Back: no CVA tenderness Thoracic/Lumbar Spine: lumbar spinal tenderness Skin Rashes: no rashes Extrem General: Yes no clubbing, cyanosis or edema Results AMB Hemoglobin A1c AMB Hemoglobin A1c 5.7 % Last Edit by Marianne Hernandez CMA on 04/25/24 11 :11 Results Reviewed Results Reviewed: Laboratory Last Values Hgb A1c (Clinic) 5.7 % (4.0-6.0) 04/25/24 10:56 Laboratory Tests 04/22/24 04/22/24 04/25/24 07:44 07:49 10:56 WBC 7.0 Hgb 12.5 Hct 37.1 Plt Count 241 Sodium 142 Potassium 4.6 Creatinine 1.22 Fasting Glucose 85 Hgb A1c (Clinic) 5.7 Calcium 9.4 AST 25 ALT 17 Triglycerides 148 Cholesterol 207 H LDL Cholesterol, Calc 116 H HDL Cholesterol 62 Vitamin B12 590 25-OH Vitamin D Total 65.9 TSH 18.71 H Free T4 0.86 Ur Specific [place] <= 1.005 Urine Protein Negative Urine Glucose (UA) Negative Urine Blood Negative Urine Nitrite Negative Ur Leukocyte Esterase Trace H Coding Level of Care Code Est Pt Level 4 (30540) Complex EM visit Add On G2211 Diagnoses Pure hypercholesterolemia E78.00 Type 2 diabetes mellitus with stage 3a chronic kidney disease, without long-term current use of insulin E11.21; N18.31 Diabetes mellitus penitentiary insulin use: without penitentiary use Chronic kidney disease stage: stage 3 (moderate) Chronic kidney disease stage 3 subtype: stage 3a (GFR 45-59) Stage 3a chronic kidney disease N18.31 Chronic kidney disease stage 3 subtype: stage 3a (GFR 45-59) Benign essential hypertension I10 Acquired hypothyroidism E03.9 High thyroid stimulating hormone (TSH) level R79.89 Iron deficiency anemia, unspecified iron deficiency anemia type D50.9 Iron deficiency anemia type: unspecified iron deficiency Mild intermittent asthma without complication J45.20 Asthma severity: mild Asthma persistence: intermittent Asthma complication type: uncomplicated Constipation, unspecified constipation type K59.00 Constipation type: unspecified constipation type Gastroesophageal reflux disease without esophagitis K21.9 Esophagitis presence: without esophagitis Degeneration of intervertebral disc of lumbar region with discogenic back pain M51.360 Disc-related pain type: discogenic back pain only Vitamin B12 deficiency E53.8 Vitamin D deficiency E55.9 Primary osteoarthritis, left shoulder M19.012 Primary insomnia F51.01 Episode of recurrent major depressive disorder, unspecified depression episode severity F33.9 Depression Type: major depressive disorder Major depression recurrence: recurrent Active/Remission status: currently active Major depression episode severity: unspecified Obesity (BMI 30-39.9) E66.9 Additional Codes PHQ-9 - 00841 - PHQ-9 Billing: Yes ([id number]) Assessment & Plan Assessment & Plan (1) Pure hypercholesterolemia: Code(s): E78.00 - Pure hypercholesterolemia, unspecified Category: Medical Plan: Results of her labs done a few days ago reviewed and discussed with patient - have cautioned patient that her cholesterol numbers have all increased significantly from her previous numbers She admits to poor compliance with her diet over the holidays - states that she has been eating a lot lately but will try to work on getting herself back on track Reinforced low cholesterol diet Continue Lovastatin 40 mg QD for now Will recheck her labs and fasting lipids in 4 months for follow-up (2) Type 2 diabetes mellitus with diabetic chronic kidney disease: Code(s): E11.22 - Type 2 diabetes mellitus with diabetic chronic kidney disease Category: Medical Qualifiers: Diabetes mellitus penitentiary insulin use: without extermination inspector use Chronic kidney disease stage: stage 3 (moderate) Chronic kidney disease stage 3 subtype: stage 3a (GFR 45-59) Qualified Code(s): E11.21 - Type 2 diabetes mellitus with diabetic nephropathy; N18.31 - Chronic kidney disease, stage 3a Plan: Her in-office HgbA1c done today is at 5.7% (her HgbA1c was previously at 6.0% a few months ago) - goal is at least <7.0% Reinforced diabetic diet Continue Jentadueto 2.5-500 mg BID (3) Chronic kidney disease (CKD), stage III (moderate): Code(s): N18.30 - Chronic kidney disease, stage 3 unspecified Category: Medical Qualifiers: Chronic kidney disease stage 3 subtype: stage 3a (GFR 45-59) Qualified Code(s): N18.31 - Chronic kidney disease, stage 3a Plan: Stable -? will continue to monitor her GFR and renal function regularly (4) Benign essential hypertension: Code(s): I10 - Essential (primary) hypertension Category: Medical Plan: Reinforced low sodium diet -? goal is systolic BP of at least 130 to 140 mm or less Continue Enalapril 2.5 mg QD (5) Acquired hypothyroidism: Code(s): E03.9 - Hypothyroidism, unspecified Category: Medical Plan: Her free T4 level was normal on her recent labs but her TSH level has risen significantly to 18.71, raising suspicion for Pietro's Patient currently appears clinically euthyroid Continue Levothyroxine 100 mcg QD for now Will continue to monitor her TFTs regularly (6) High thyroid stimulating hormone (TSH) level: Code(s): R79.89 - Other specified abnormal findings of blood chemistry Category: Medical Plan: Suspect Pietro's Will send her for some additional labs, including TPO Ab, for further evaluation Discussed possibility of Pietro's thyroiditis with patient but advised that goal of Tx is still adequate thyroid hormone replacement and maintenance of euthyroid state Will keep monitoring her TFTs regularly (7) Iron deficiency anemia: Code(s): D50.9 - Iron deficiency anemia, unspecified Category: Medical Qualifiers: Iron deficiency anemia type: unspecified iron deficiency Qualified Code(s): D50.9 - Iron deficiency anemia, unspecified Plan: Corrected - her H/H have remained normal on her recent labs Continue Ferrous Sulfate 325 mg QD Will continue to monitor her CBC regularly (8) Asthma: Code(s): J45.909 - Unspecified asthma, uncomplicated Category: Medical Qualifiers: Asthma severity: mild Asthma persistence: intermittent Asthma complication type: uncomplicated Qualified Code(s): J45.20 - Mild intermittent asthma, uncomplicated Plan: Her asthma is again controlled / stable lately Chest x-rays done back in December 2023 came back normal Continue Albuterol HFA 2 puffs 4 times a day as needed; she uses her nebulizer also on an as needed basis (9) Constipation: Code(s): K59.00 - Constipation, unspecified Category: Medical Qualifiers: Constipation type: unspecified constipation type Qualified Code(s): K59.00 - Constipation, unspecified Plan: Patient is encouraged again on increased oral fluids and dietary fiber Abdominal x-rays done back in January 2023 showed (+) mild to moderate stool burden Continue Miralax 17 gm at half dose daily or 17 gm every other day (patient had diarrhea in the past when she took it daily) and Senna 8.6 mg BID PRN (10) GERD (gastroesophageal reflux disease): Comment: EGD with Bx done on 03/29/2024 revealed (+) gastritis; negative for metaplasia or dysplasia Code(s): K21.9 - Gastro-esophageal reflux disease without esophagitis Category: Medical Qualifiers: Esophagitis presence: without esophagitis Qualified Code(s): K21.9 - Gastro-esophageal reflux disease without esophagitis Plan: Dietary restrictions reinforced She was referred to GI and had EGD with Bx done on 04/08/2024 - stomach noted to have diffuse erythema in the body consistent with gastritis Bx of the GE junction and antrum came back negative for H. pylori and negative for intestinal metaplasia and dysplasia Continue Omeprazole 20 mg QD Follow up with GI (Dr. Worthington) as scheduled (11) Lumbar degenerative disc disease: Code(s): M51.36 - Other intervertebral disc degeneration, lumbar region Category: Medical Qualifiers: Disc-related pain type: discogenic back pain only Qualified Code(s): M51.360 - Other intervertebral disc degeneration, lumbar region with discogenic back pain only Plan: Lumbar spine and hip x-rays done back in January 2023 revealed (+) multilevel mild lumbar spondylosis, with slight thoracolumbar levoscoliosis. There are mild degenerative changes noted in both hips as well Reinforced activity and weight lifting restrictions Continue Tramadol 50 mg Q 12 hours PRN for pain (12) Vitamin B12 deficiency: Code(s): E53.8 - Deficiency of other specified B group vitamins Category: Medical Plan: Continue Vitamin B12 500 mcg BIW Her dose was cut back at her last visit as her B12 level increased significantly to >1900 a few months ago Her level is now down to 590 and if it drops further over the next few months, may need to increased her dosing slightly later on (13) Vitamin D deficiency: Code(s): E55.9 - Vitamin D deficiency, unspecified Category: Medical Plan: Continue Vitamin D3 1000 units QD (14) Primary osteoarthritis, left shoulder: Code(s): M19.012 - Primary osteoarthritis, left shoulder Category: Medical Plan: States that Tramadol is helping to keep her shoulder pain manageable - takes it PRN only (15) Primary insomnia: Code(s): F51.01 - Primary insomnia Category: Medical (16) Depression: Code(s): F32.9 - Major depressive disorder, single episode, unspecified Category: Medical Qualifiers: Depression Type: major depressive disorder Major depression recurrence: recurrent Active/Remission status: currently active Major depression episode severity: unspecified Qualified Code(s): F33.9 - Major depressive disorder, recurrent, unspecified Plan: Sleep hygiene reinforced Continue Trazodone 100 mg 2 tablets at bedtime daily as needed although she feels that this has not been helping her as well as it used to lately She is again advised that she can try taking some OTC Melatonin 5 mg 1 capsule at bedtime as needed additionally to help her sleep better at night (17) Obesity (BMI 30-39.9): Code(s): E66.9 - Obesity, unspecified Category: Medical Plan: Reinforced diet/exercise as tolerated/lose weight Plan Follow up in 4 months Orders: Orders AMB Hemoglobin A1c Today Z13.9 - Encounter for screening, unspecified Thyroid Peroxidase Antibodies Today R79.89 - Other specified abnormal findings of blood chemistry Erythrocyte Sedimentation Rate Today R79.89 - Other specified abnormal findings of blood chemistry Thyroid Stimulating Hormone 4 Months E03.9 - Hypothyroidism, unspecified Free T4 (Free Thyroxine) 4 Months E03.9 - Hypothyroidism, unspecified Vitamin D 25-OH Total 4 Months E55.9 - Vitamin D deficiency, unspecified Vitamin B12 and Folate 4 Months E53.8 - Deficiency of other specified B group vitamins Triiodothyronine T3 Total Today R79.89 - Other specified abnormal findings of blood chemistry Complete Blood Count Auto Diff 4 Months D64.9 - Anemia, unspecified Comprehensive [place]. Panel Fast 4 Months E78.00 - Pure hypercholesterolemia, unspecified Lipid Panel 4 Months E78.00 - Pure hypercholesterolemia, unspecified UA CC w/rflx Micro + Cult 4 Months R30.0 - Dysuria
[2024-04-25 10:54] VITALS: BP 146/70; PULSE 77; O2SAT 97; BMI 33.1
== END 2024-04-25 11:40 | disposition home or self-care (01) ==
PROVIDERS: PCP Internal Medicine; Visit Provider Internal Medicine
DX: E78.00 Pure hypercholesterolemia, unspecified (principal); E11.21 Type 2 diabetes mellitus with diabetic nephropathy; N18.31 Chronic kidney disease, stage 3a; I10 Essential (primary) hypertension; E03.9 Hypothyroidism, unspecified; R79.89 Other specified abnormal findings of blood chemistry; D50.9 Iron deficiency anemia, unspecified; J45.20 Mild intermittent asthma, uncomplicated; K59.00 Constipation, unspecified; K21.9 Gastro-esophageal reflux disease without esophagitis; M51.360 Other intervertebral disc degeneration, lumbar region with discogenic back pain only; F33.9 Major depressive disorder, recurrent, unspecified; E53.8 Deficiency of other specified B group vitamins; E55.9 Vitamin D deficiency, unspecified; M19.012 Primary osteoarthritis, left shoulder; F51.01 Primary insomnia; E66.9 Obesity, unspecified; Z13.9 Encounter for screening, unspecified

== ENCOUNTER 2024-08-25 07:28 | Outpatient (REF) | payer OTHER, SELFPAY ==
--- OUTSIDE RECORDS SUMMARY | 2024-08-25 07:31 | XMS_ITS ---
Author Organization [facility] Address [address] [place] [id number] Care Team Providers Care Sustainability Executive Director Name Role Phone Christofer TALAMANTES, Rahul Primary Care Provider Remington Worthington Jr, Kwadwo Durant [phone] REASON FOR VISIT pathology Encounters Encounter Location Date Provider Diagnosis [facility] [address] [place] [address] 04/11/2024 Kwadwo Worthington Jr Plan Of Treatment Next Appt Details Provider Name:Kwadwo euceda Jr, 10/08/2024 09:20:00 AM, [address], [address], [place], [address], Progress Notes * CAMERON CURRIE GDOB:1950 (74 yo F)Acc No.[id number]:04/11/2024 Patient:?CAMERON CURRIE :1950???Age:74 Y???Sex:Female Address:[address] [place] [id number] * true * Date:? Generated for Sydnii judit/Laura/eTransmitting on:?08/25/2024 07:31 AM EDT
--- OUTSIDE RECORDS SUMMARY | 2024-08-25 07:31 | XMS_ITS ---
Author Organization [facility] Address [address] [place] [phone] Care Team Providers Care Sales And Operations Trainee Name Role Phone Christofer TALAMANTES, Rahul Primary Care Provider Remington Worthington Jr, Kwadwo Durant REASON FOR VISIT Jendadueto Encounters Encounter Location Date Provider Diagnosis [facility] [address] [place] [address] 03/10/2024 Kwadwo Worthington Jr Plan Of Treatment Next Appt Details Provider Name:Kwadwo euceda Jr, 10/08/2024 09:20:00 AM, [address], [address], [place], [address], Progress Notes * CAMERON CURRIE GDOB:1950 (73 yo F)Acc No.[id number]:03/10/2024 Patient:?CAMERON CURRIE :1950???Age:73 Y???Sex:Female Address:[address] [place] [id number] * true * Date:? Generated for Printi judit/Laura/eTransmitting on:?08/25/2024 07:31 AM EDT
--- OUTSIDE RECORDS SUMMARY | 2024-08-25 07:31 | XMS_ITS ---
Author Organization [facility] Address [address] [place] [address] Care Team Providers Care Machine Puller Name Role Phone Christofer TALAMANTES, Rahul Primary Care Provider Remington Worthington Jr, Kwadwo Durant REASON FOR VISIT gerd,abdominal apin,wt loss,rectal pain Problems Problem Type SNOMED Code ICD Code Onset Dates Problem Status W/U Status Risk Notes Problem Gastro-esophagea l reflux disease without esophagitis (238893046) Gastro-esophage al reflux disease without esophagitis (K21.9) Active confirmed Encounters Encounter Location Date Provider Diagnosis [facility] Outpatient [address] [place], [place] [id number] 04/08/2024 Kwadwo Worthington Jr Rectal mass K62.9 ; Colon polyps K63.5 ; Gastro-esophageal reflux disease without esophagitis K21.9 and Abdominal pain, generalized R10.84 Assessments Encounter Date Diagnosis (ICD Code) Assessment Notes Treatment Notes Treatment Clinical Notes Section Notes 04/08/2024 Rectal mass (ICD-10 - K62.9) 04/08/2024 Colon polyps (ICD-10 - K63.5) 04/08/2024 Gastro-esophagea l reflux disease without esophagitis (ICD-10 - K21.9) 04/08/2024 Abdominal pain, generalized (ICD-10 - R10.84) Plan Of Treatment Next Appt Details Provider Name:Kwadwo euceda Jr, 10/08/2024 09:20:00 AM, [address], [address], [place], [address], Progress Notes * CAMERON CURRIE GDOB:1950 (74 yo F)Acc No.[id number]:04/08/2024 EGD and COL/MAC Patient:?CAMERON CURRIE Provider:?Kwadwo Worthington MD :1950???Age:74 Y???Sex:Female D ate:04/08/2024 Address:[address] [place] [address] Pcp:Rahul Beaulieu MD Subjective: * Chief Complaints: * ???1. Gerd,abdominal apin,wt loss,rectal pain. * Medical History:? Objective: * Vitals:? Assessment: * Assessment: 1.?Rectal mass - K62.9 (Prim juice)???2.?Colon polyps - K63.5???3.?Gastro- esophageal reflux disease without esophagitis - K21.9???4.?Abdominal pain, generalized - R10.84??? Plan: * Treatment: * Procedure Codes:?39080 LESIO N REMOVAL COLONOSCOPY, 86204 UPPER GI ENDOSCOPY, BIOPSY * * The named appointment provid er may or may not be the originator of this progress note, and it is not deemed complete until electronically signed by the appointment provider. Sign off status: Pending * Provider:?Kwadwo Worthington MD Date:? Generated for Cassidy spain/Laura/eTransmitting on:?08/25/2024 07:30 AM EDT
--- OUTSIDE RECORDS SUMMARY | 2024-08-25 07:31 | XMS_ITS | Patient Health Record ---
Author Organization [facility] Address [address] [place] [address] Care Team Providers Care Sheeter Waxer Operator Name Role Phone Christofer TALAMANTES, [place] Primary Care Provider Kwadwo Godfrey Jr Allergies Allergen (clinical drug ingredient) Drug/Non Drug Allergy documented on EMR Reaction Allergy Type Onset Date Status ibuprofen Ibuprofen Unknown Drug Allergy Active Results Component Value Reference Range Notes Glucose, Whole Blood Reviewed date:04/08/2024 01:59:29 PM Interpretation: Performing Lab:[facility], [address] [place] [phone] Notes/Report: Glucose, Whole Blood 117 60-115 mg/dL METER # : [id number] Pathology Reviewed date:04/11/2024 03:30:51 PM Interpretation: Performing Lab:[facility], [address] [place] [phone] Notes/Report: ------ Name: Cameron Currie Age/Sex: 74/F : 1950 Unit#: [id number] Attend Dr: Kwadwo Worthington MD Re04/08/24 Status : [facility] Location: [facility] Disch: ------ SPEC : [id number] RECD : 04/08/24 STATUS: ISI MÉNDEZ NUM: [id number] BRUNA: 04/08/[address] [facility] [address]: Kwadwo Worthington MD ENTERED: 04/08/24 SP TYPE: Surgical OTHR DR: Rahul Beaulieu MD ORDERED: HE Stain/9, Gross Micro L4/3, IHC, Special st. 2, H. pylori, AB/PAS Diagnosis A. Gastric antrum, b iopsy: Gastric antral mucosa with minimal chronic gastritis with focal mild activity; negative for H. pylori, intestinal metaplasia and dysplasia. B. Esophagogastric junction, biopsy: Squamous mucosa with rare intraepithelial neutrophil and eosin ophil (up to 1 per high-power field) compatible with reflux esophagitis, and col umnar mucosa with mild inflammation; negative for intestinal metaplasia and dysplasia. C. Colon, hepatic fl exure, polyp: Tubular adenoma; negative for high-grade dysplasia and carcinoma. Clinical History Pre-Op Dx: Enteropto sis, GERD, abdominal pain Post-Op Dx: Gastriti s, colon polyp Microscopic Description Microscopic sections reviewed. Immunostain for H. pylori on A is negative. AB/PAS on B is negative for intesti nal metaplasia. Controls stain appropriately. Material Received A. Antral bx B. EG junction bx C. Polyp hepatic flexure Gross Description Received in three parts. Part A: Received in formalin labeled ?antral bx? are 2 gandhi-pink irregular and rectangular tissue fragments celi suring 0.25 and 0.35 cm, submitted in toto in a cassette labeled A. Part B: Received in formalin labeled ?EG junction? are 3 ott-pink irregular and rectangular tissue fragments ranging from less than 0.1-0.25 cm, submitted in toto in a cassette labeled B. Part C: Received in formalin labeled ?polyp hepatic flexure? is a 0.45 cm gandhi papular tissue fragment, sub mitted in toto in a cassette labeled C. CEDCarmelo CONTINUED ON NEXT PAGE ------ Name: Cameron Currie Age/Sex: 74/F : 1950 Unit#: [id number] Attend Dr: Kwadwo Worthington MD Re04/08/24 Status : [facility] Location: [facility] Disch: ------ SPEC : [id number] RECD : 04/08/24 STATUS: ISAÍASAngelica DEV NUM: [id number] BRUNA: 04/08/[address] [facility] [address]: Kwadwo Worthington MD ENTERED: 04/08/24 SP TYPE: Surgical OTHR DR: Rahul Beaulieu MD ORDERED: HE Stain/9, Gross Micro L4/3, IHC, Special st. 2, H. pylori, AB/PAS Gross Description (Continued) Special studies orde red and performed: Immunostain for H. pylori on A1; AB/PAS stains on B1. Copies To: Rahul Beaulieu MD [facility] [address] [place], [place] [phone] Kwadwo Worthington MD [facility] [address] [place], [place] [phone] ------ Signed (signature on file) Jasmin Madhu 04/11/24 1257 ------ END OF REPORT Reason For Referral No Information Medications Medication SIG (Take, Route, Frequency, Duration) Notes Start Date End Date Status Lovastatin 40 MG 1 tablet with a meal Orally Once a day Active Sertraline HCl 100 MG 1 tablet Orally On ce a day Active D3 Super Strength 50 MCG (2000 UT) TAKE ONE CAPSULE BY MOUTH EVERY DAY Oral for 90 Active MiraLax (colon prep) 17 GM/SCOOP mixed with Gatorade or Crystal Light Orally begin at 5:00 p.m. the day before the procedure for 1 day 03/10/2024 Active Enalapril Maleate 2.5 MG TAKE ONE TABLET BY MOUTH EVERY DAY Oral for 90 Active Vitamin D3 2000 UNIT Orally Once a day Active Vitamin B-12 500 MCG TAKE ONE TABLET BY MOUTH EVERY DAY Oral for 90 Active traZODone HCl 100 MG 1 tablet at bedtime Orally Once a day Active traMADol HCl 50 MG TAKE ONE TABLET BY M OUTH EVERY 12 HOURS NEEDED FOR PAIN Oral for 30 Active Omeprazole 20 MG TAKE ONE CAPSULE BY MOUTH EVERY DAY Oral for 90 Active Jentadueto 2.5-500 MG TAKE ONE TABLET BY MOUTH TWICE A DAY Oral for 90 Active Ferrous Sulfate 325 (65 Fe) MG TAKE ONE TABLET BY MOUTH EVERY DAY Oral for 90 Active Levothyroxine Sodium 0.2 mg 1 tablet Ora lly Once a day Active Immunizations Vaccine Route Administration Date Status Comme nts Influenza Unknown 03/10/2024 Refused Problems Problem Type SNOMED Code ICD Code Onset Dates Problem Status W/U Status Risk Notes Problem Gastro-esophage al reflux disease without esophagitis (422435634) Gastro-esophageal reflux disease without esophagitis (K21.9) Active confirmed Problem 05965821 Weight loss (R63.4) Active confirmed Problem 615957745 Generalized abdominal pain (R10.84) Active confirmed Problem 33621544 Rectal pain (K62.89) Active confirmed Problem 98364661 Other iron deficiency anemia (D50.8) Active confirmed Problem 609711302 Gastroesophageal reflux disease, unspecified whether esophagitis present (K21.9) Active confirmed Vital Signs Temperature 97.3 degrees Fahrenheit 03/10/2024 Blood pressure diastolic 00 mm Hg 03/10/2024 Height 59.5 in 03/10/2024 Blood pressure systolic 000 mm Hg 03/10/2024 Weight 153 lbs 03/10/2024 BMI 30.38 kg/m2 03/10/2024 Encounters Encounter Location Date Provider Diagnosis [facility] Outpatient [address] [place] [phone] 04/08/2024 Kwadwo Worthington Jr Rectal mass K62.9 ; Colon polyps K63.5 ; Gastro-esophageal reflux disease without esophagitis K21.9 and Abdominal pain, generalized R10.84 [facility] [address] [place] [phone] 03/10/2024 Kwadwo Worthington Jr Gastroesophageal reflux disease, unspecified whether esophagitis present K21.9 ; Generalized abdominal pain R10.84 ; Rectal pain K62.89 and Weight loss R63.4 [facility] [address] [place] [address] Drive [address] [place] [phone] 03/10/2024 Kwadwo Worthington Jr [facility] [address] [place] [address] Drive [address] [place] [phone] 04/11/2024 Kwadwo Worthington Jr Assessments Encounter Date Diagnosis (ICD Code) Assessment Notes Treatment Notes Treatment Clinical Notes Section Notes 04/08/2024 Colon polyps (ICD-10 - K63.5) 04/08/2024 Rectal mass (ICD-10 - K62.9) 03/10/2024 Generalized abdominal pain (ICD-10 - R10.84) We discussed her symptoms today. We recommended further evaluation with upper endoscopy and colonoscopy. We discussed risks and benefits of the procedures today. She understands these and agrees to proceed. This will be scheduled at her convenience. She is advised to stop iron one week before the procedure and Jentadueto 2 days before the procedure. 03/10/2024 Gastroesophageal reflux disease, unspecified whether esophagitis present (ICD-10 - K21.9) Endoscopy material was printed We discussed her symptoms today. We recommended further evaluation with upper endoscopy and colonoscopy. We discussed risks and benefits of the procedures today. She understands these and agrees to proceed. This will be scheduled at her convenience. She is advised to stop iron one week before the procedure and Jentadueto 2 days before the procedure. 04/08/2024 Gastro-esophageal reflux disease without esophagitis (ICD-10 - K21.9) 03/10/2024 Rectal pain (ICD-10 - K62.89) We discussed her symptoms today. We recommended further evaluation with upper endoscopy and colonoscopy. We discussed risks and benefits of the procedures today. She understands these and agrees to proceed. This will be scheduled at her convenience. She is advised to stop iron one week before the procedure and Jentadueto 2 days before the procedure. 04/08/2024 Abdominal pain, generalized (ICD-10 - R10.84) 03/10/2024 Weight loss (ICD-10 - R63.4) We discussed her symptoms today. We recommended further evaluation with upper endoscopy and colonoscopy. We discussed risks and benefits of the procedures today. She understands these and agrees to proceed. This will be scheduled at her convenience. She is advised to stop iron one week before the procedure and Jentadueto 2 days before the procedure. Plan Of Treatment Future Test Test Name Order Date COLONOSCOPY 05/26/2015 UPPER GI ENDOSCOPY 03/10/2024 COLONOSCOPY 03/10/2024 Next Appt Details Provider Name:Kwadwo euceda Jr, 10/08/2024 09:20:00 AM, [address], [address], [place], [address], Insurance Providers Payer Name Payer Address Payer Phone Subscriber Number Group Number Insured Name Patient Relationship to Insured Coverage Start Date Coverage End Date [facility] [address] [address] [place] [phone] [id number] CAMERON CURRIE Self - patient is the insured MEDICAID OF [facility] [address] [place] [address] [phone] [id number] CAMERON CURRIE Self - patient is the insured Medical (General) History Medical History History ICD Code Colonoscopy 07/23, diverticulosis diabetes mellitus depression hypothyroidism asthma Chronic kidney disease stage III Carpal tunnel syndrome Gastroesophageal reflux disease Hyperlipidemia Surgical History Surgery Date(Month/Year) cyst removal carpal tunnel release-both wrist
[2024-08-25 07:41] LABS: MANUAL DIFF FLAG NO
[2024-08-25 08:03] LABS: Basophils Absolute Auto 0.1 X10*3/uL (0.0-0.2); Basophils Percent Auto 0.8 % (0-2); Eosinophils Absolute Auto 1.1 X10*3/uL (0.0-0.4); Eosinophils Percent Auto 15.3 % (0-4); Hematocrit 36.9 % (37.0-47.0); Hemoglobin 12.1 g/dl (12.0-16.0); Imm Gran Abs Auto 0.02 X10*3/uL (0.00-0.03); Imm Gran Pct Auto 0.3 % (0.0-0.4); Lymphocytes Absolute Auto 3.2 X10*3/uL (1.2-4.9); Lymphocytes Percent Auto 44.1 % (20-40); Mean Corpuscular HGB Conc 32.8 g/dl (31.0-35.0); Mean Corpuscular Hemoglobin 30.1 pg (27.0-33.0); Mean Corpuscular Volume 91.8 fL (80.0-98.0); Mean Platelet Volume 9.3 fL (9.4-12.3); Monocytes Absolute Auto 0.6 X10*3/uL (0.1-1.2); Monocytes Percent Auto 7.9 % (2-11); Neutrophils Absolute Auto 2.3 x10*3/uL (2.0-8.3); Neutrophils Percent Auto 31.6 % (45-73); Platelet Count 221 X10*3/uL (160-400); Red Blood Count 4.02 X10*6/uL (4.20-5.50); Red Cell Distribution Width 13.2 % (11.0-16.0); White Blood Count 7.3 X10*3/uL (4.8-10.8)
[2024-08-25 08:50] LABS: Appearance Urine Clear; Color Urine Yellow; Glucose Urine UA Negative (Negative); Leukocyte Esterase Urine Trace (Negative); Nitrite Urine Negative (Negative); UMIC TRIGGER UACC YES; Urine Blood Negative (Negative); Urine Ketones Negative (Negative); Urine Protein Negative (Neg-Trace)
[2024-08-25 08:53] LABS: Alanine Aminotransferase 17 U/L (0-31); Albumin Level 4.4 g/dL (3.5-5.0); Alkaline Phosphatase 37 U/L (39-117); Anion Gap 11 (12-20); Aspartate Amino Transferase 27 U/L (5-31); Bilirubin Total 0.3 mg/dL (0.0-1.0); Blood Urea Nitrogen 17 mg/dL (9-16); Calcium 9.9 mg/dL (8.4-10.2); Carbon Dioxide 30 mmol/L (22-29); Chloride 105 mmol/L (96-108); Cholesterol 185 mg/dL (<200); Estimated Glomerular Filt Rate 48; Glucose Fasting 108 mg/dL (60-99); HDL Cholesterol 59 mg/dL (>40); LDL Cholesterol Calculated 102 mg/dL (<100); Potassium 4.5 mmol/L (3.3-5.1); Sodium 141 mmol/L (135-145); Total Protein 7.3 g/dL (6.5-8.0); Triglycerides 123 mg/dL (<150)
[2024-08-25 08:54] LABS: Bacteria Urine None Seen (None Seen); Hyaline Casts Urine 0-2 /LPF (0-2); RBC Urine 0-2 /HPF (0-2); Squamous Epithelial Cell Urine 0-2 /HPF (0-2); WBC Urine 0-5 /HPF (0-5)
[2024-08-25 09:08] LABS: Free T4 (Free Thyroxine) 1.02 ng/dL (0.71-1.85); Thyroid Stimulating Hormone 0.76 uIU/mL (0.32-4.0); Vitamin D 25-OH Total 64.2 ng/mL (>30)
[2024-08-25 09:21] LABS: Folate 6.1 ng/mL (> or = 4.0); Vitamin B12 1666 pg/mL (200-900)
== END 2024-08-25 07:29 | disposition home or self-care (01) ==
LOC: HO.LAB 07:28
PROVIDERS: Visit Provider Internal Medicine
DX: E03.9 Hypothyroidism, unspecified (principal); E55.9 Vitamin D deficiency, unspecified; E78.00 Pure hypercholesterolemia, unspecified; E53.8 Deficiency of other specified B group vitamins; D64.9 Anemia, unspecified; R30.0 Dysuria
CPT/HCPCS: 36415; 80053; 80061; 81001; 82306; 82607; 82746; 84439; 84443; 85025

== ENCOUNTER 2024-08-26 10:37 | Outpatient (AMB) | payer OTHER, SELFPAY ==
[2024-08-26 10:40] VITALS: BP 128/76; PULSE 80; O2SAT 96; BMI 32.1
--- NOTE | 2024-08-26 10:40 | A.OFFPC_ITS ---
Vital Signs 08/26/24 10:40 Height 4 ft 9 in Weight 148 lb 6 oz BMI 32.1 BP 128/76 Blood Pressure Location Lt brachial Position Sitting Pulse 80 Pulse Source Pulse Oximeter Pulse Oximetry (%) 96 Oxygen Delivery Method Room Air Intake Visit Reasons: hyperlipidemia, Pietro's thyroiditis Aircraft Engineer Required: No Accompanied by: Self / Same As Patient Allergies ibuprofen [IBUPROFEN] Allergy (Unknown, Verified 08/26/24 11:13) swelling BuPROPion HCl Allergy (Unknown, Uncoded 08/26/24 11:13) unknown Cortisone Allergy (Unknown, Uncoded 08/26/24 11:13) Unknown Medication List - Last Reconciled 08/26/24 by Rahul Beaulieu MD cetirizine (Zyrtec) 10 mg PO DAILY PRN 90 days cholecalciferol (vitamin D3) 50 mcg PO DAILY 90 days cyanocobalamin (vitamin B-12) 500 mcg PO DAILY diclofenac sodium 1% (Voltaren Arthritis Pain) 4 grams topical QID enalapril maleate 2.5 mg PO DAILY 90 days ferrous sulfate 325 mg PO DAILY fluticasone propionate 50 mcg/actuation 1 spray intranasal DAILY 30 days levothyroxine 100 mcg PO DAILY 90 days lidocaine 5% 1 patch topical DAILY linagliptin-metformin 2.5-500 mg (Jentadueto) 1 tab PO BID lovastatin 40 mg PO DAILY 90 days naproxen 500 mg PO BID PRN 30 days omeprazole 20 mg PO DAILY 90 days polyethylene glycol 3350 (Miralax) 17 grams PO DAILY sennosides (senna) 8.6 mg PO BID PRN sertraline 200 mg (2 x 100 mg) PO DAILY tramadol 50 mg PO Q12H PRN 30 days trazodone 200 mg (2 x 100 mg) PO BEDTIME PRN 90 days triamcinolone acetonide 0.5% 1 appl topical BID PRN Tobacco use date assessed: 08/26/24 Fall risk assessment: No Falls in past year Last assessed Fall Risk: 08/26/24 Dental Screening Dental Screen Date: 08/26/24 Did you have a dental visit in the last 12 months?: Yes Did you have a dental problem in the last 6 months where you did not have access to dental care?: No Was dental information given to patient?: Patient has dentist HPI hyperlipidemia, Pietro's thyroiditis HPI Details Patient comes in today for her follow up visit States that she feels okay She denies any headaches or dizziness Denies any chest pains, no increased SOB No nausea/vomiting, no abdominal pain No change in bowel habits noted She had her follow up labs done yesterday - to discuss her results [facility] Medical History Lumbar degenerative disc disease Constipation Abdominal pain Menopause GERD (gastroesophageal reflux disease) Diabetes Cervical lymphadenitis Depression Low back pain Obesity (BMI 30-39.9) Primary insomnia Vitamin D deficiency Acquired hypothyroidism Primary osteoarthritis, left shoulder Asthma Vitamin B12 deficiency Iron deficiency anemia Benign essential hypertension Pure hypercholesterolemia Chronic kidney disease (CKD), stage III (moderate) Type 2 diabetes mellitus with diabetic chronic kidney disease Surgical History History of lipoma History of colonoscopy History of carpal tunnel release Family History Father Advanced cardiac disease Diabetes Mother Lung cancer Family/Other Diabetes Hypertension High cholesterol Social History Housing: House Alcohol intake: never Patient Tobacco Use Status: Former Tobacco user Tobacco use type: Cigarette e-Cigarette/Vaping Use: Never Used Second Hand Smoke Exposure: Yes service: No Current occupational status: retired Cognitive needs: No Hearing needs: No Vision needs: Yes Questionnaire PHQ-9 Over the last 2 weeks, how often have you been bothered by any of the following problems? 1. Little interest or pleasure in doing things: nearly every day 2. Feeling down, depressed, or hopeless: not at all 3. Trouble falling or staying asleep, or sleeping too much: not at all 4. Feeling tired or having little energy: not at all 5. Poor appetite or overeating: not at all 6. Feeling bad about yourself - or that you are a failure or have let yourself or your family down: not at all 7. Trouble concentrating on things, such as reading the newspaper or watching television: several days 8. Moving or speaking so slowly that other people could have noticed. Or the opposite - being so fidgety or restless that you have been moving around a lot more than usual: several days 9. Thoughts that you would be better off or of hurting yourself in some way: more than half the days Total score: 7 Depression Screening Interpretation: Positive Depression Screening Follow-up: Follow-up Visit Requested Depression Screening Done: Yes 19569 - PHQ-9 Billing: Yes Source: Developed by Drs. Eligio Cox, Viry Guevara, Vishal Quinteros and colleagues, with an educational carolin from [employer]. Thrive Questionnaire Date Thrive assessed: 08/26/24 I am a: Patient What is your living situation today?: I choose not to answer this question Within the past 12 months, did the food you bought not last and you didn't have the money to get more?: I choose not to answer this question Within the past 12 months, did you worry whether your food would run out before you got money to buy more?: I choose not to answer this question Do you have trouble paying for medicines?: I choose not to answer this question Do you have trouble getting transportation to medical appointments?: I choose not to answer this question Do you have trouble paying your heating and electricity bill?: I choose not to answer this question Do you have trouble taking care of your child, family member or friend?: I choose not to answer this question Do you have trouble with day-to-day activities such as bathing, preparing meals, shopping, managing finances, etc.?: I choose not to answer this question Are you currently unemployed and looking for a job?: I choose not to answer this question Are you interested in more education?: I choose not to answer this question Please select the resources that you would like help with: None Currently or been in a relationship where the following occur: I choose not to answer THRIVE Score: 0 AUDIT C Alcohol Use Questionnaire (AUDIT-C) 1. How often do you have a drink containing alcohol?: Never 3. How often do you have six or more drinks on one occasion?: Never Total Score: 0 Score Reviewed/Action Taken: Yes ARNOLDO-7 AMB Questionnaire ARNOLDO-7 Date ARNOLDO - 7 assessed: 08/26/24 Feeling nervous, anxious, or on edge: 1 = Several days Not being able to stop or control worryin = Several days Worrying too much about different things: 1 = Several days Trouble relaxin = Several days Being so restless that it is hard to sit still: 1 = Several days Becoming easily annoyed or irritable: 1 = Several days Feeling afraid as if something awful might happen: 1 = Several days Total ARNOLDO-7 score (0-4 normal; 5-9 mild; 10-14 moderate; 15-21 severe): 7 Source: Developed by Drs. Eligio Cox, Viry Guevara, Vishal Quinteros and colleagues, with an educational carolin from [employer]. Review of Systems Const Denies chills, Denies difficulty sleeping (Rx helps), Denies fatigue, Denies fever(s) and Denies headache(s) ENT Denies dysphagia, Denies dizziness, Denies otalgia, Denies headache(s), Denies neck pain, Denies odynophagia and Denies sore throat Card Denies chest pain, Denies palpitations and Reports dyspnea on exertion (mild) Resp Denies chest congestion, Denies cough and Reports dyspnea on exertion (mild) GI Denies abdominal pain (symptoms improved with Omeprazole), Reports constipation (on and off ), Denies dysphagia, Denies heartburn (improved with Omeprazole), Denies diarrhea, Denies nausea, Denies odynophagia and Denies vomiting Denies nocturia, Denies dysuria and Denies urinary urgency Musc Reports back pain (over the lumbar spine and paraspinal areas bilaterally - chronic), Reports arthralgias (left shoulder, on and off), Denies neck pain and Reports stiffness Skin/Breast Denies rash Neuro Denies dizziness and Denies headache(s) Psych Denies anxiety Endo Denies fatigue and Denies palpitations Physical exam (Primary Care) Vital Signs: Last Vital Signs Pulse 80 08/26/24 10:40 BP 128/76 08/26/24 10:40 Pulse Ox 96 08/26/24 10:40 Oxygen Delivery Method Room Air 08/26/24 10:40 BMI result Body Mass Index 32.1 Tobacco/Smoking Status: Tobacco use Status Tobacco use date assessed 08/26/24 08/26/24 10:45 Patient Tobacco Use Status Former Tobacco user 08/26/24 10:45 Tobacco use type Cigarette 08/26/24 10:45 e-Cigarette/Vaping Use Never Used 08/26/24 10:45 PHQ-9: PHQ-9 Score PHQ-9: Total score 7 08/26/24 11:27 Depression Screening Interpretation: Positive Depression Screening Follow-up: Follow-up Visit Requested Thrive Assessment: Date of Thrive Assessment Date Thrive assessed 08/26/24 08/26/24 10:45 Currently or been in a relationship where the following occur: I choose not to answer Const General: no acute distress and alert HENMT Ears: TM's normal bilaterally and EAC's normal Throat: Yes posterior oropharynx normal and Yes tonsils normal (no TP congestion noted) Neck Neck: Yes supple and No lymphadenopathy Thyroid: Thyroid normal Resp Auscultation: no crackles, no rales, no wheezes and diminished lung sounds (slightly) bilateral Cardio Rate: regular rate Rhythm: regular rhythm Heart sounds: no murmurs GI Palpation (GI): Soft to palpation and nontender Auscultation: normal bowel sounds General: Yes no CVA tenderness Back/Spine/Pelvis Back: no CVA tenderness Thoracic/Lumbar Spine: lumbar spinal tenderness Skin Rashes: no rashes Extrem General: Yes no clubbing, cyanosis or edema Results Reviewed Results Reviewed: Laboratory Tests 04/22/24 08/25/24 08/25/24 07:49 07:35 07:40 WBC 7.3 Hgb 12.1 Hct 36.9 L Plt Count 221 Sodium 141 Potassium 4.5 Creatinine 1.12 Estimated GFR 48 Fasting Glucose 108 H Calcium 9.9 AST 27 ALT 17 Triglycerides 148 123 Cholesterol 207 H 185 LDL Cholesterol, Calc 116 H 102 H HDL Cholesterol 62 59 Vitamin B12 1666 H 25-OH Vitamin D Total 64.2 TSH 0.76 Free T4 1.02 Ur Specific Carmen 1.010 Urine Protein Negative Urine Glucose (UA) Negative Urine Blood Negative Urine Nitrite Negative Ur Leukocyte Esterase Trace H Coding Level of Care Code Est Pt Level 4 (58044) Complex EM visit Add On G2211 Diagnoses Pure hypercholesterolemia E78.00 Type 2 diabetes mellitus with stage 3a chronic kidney disease, without long-term current use of insulin E11.21; N18.31 Diabetes mellitus correction insulin use: without extermination inspector use Chronic kidney disease stage: stage 3 (moderate) Chronic kidney disease stage 3 subtype: stage 3a (GFR 45-59) Stage 3a chronic kidney disease N18.31 Chronic kidney disease stage 3 subtype: stage 3a (GFR 45-59) Benign essential hypertension I10 Acquired hypothyroidism E03.9 High thyroid stimulating hormone (TSH) level R79.89 Iron deficiency anemia, unspecified iron deficiency anemia type D50.9 Iron deficiency anemia type: unspecified iron deficiency Mild intermittent asthma without complication J45.20 Asthma severity: mild Asthma persistence: intermittent Asthma complication type: uncomplicated Constipation, unspecified constipation type K59.00 Constipation type: unspecified constipation type Gastroesophageal reflux disease without esophagitis K21.9 Esophagitis presence: without esophagitis Degeneration of intervertebral disc of lumbar region with discogenic back pain M51.360 Disc-related pain type: discogenic back pain only Vitamin B12 deficiency E53.8 Vitamin D deficiency E55.9 Primary osteoarthritis, left shoulder M19.012 Primary insomnia F51.01 Episode of recurrent major depressive disorder, unspecified depression episode severity F33.9 Depression Type: major depressive disorder Major depression recurrence: recurrent Active/Remission status: currently active Major depression episode severity: unspecified Obesity (BMI 30-39.9) E66.9 Additional Codes PHQ-9 - 45889 - PHQ-9 Billing: Yes ([id number]) Assessment & Plan Assessment & Plan (1) Pure hypercholesterolemia: Code(s): E78.00 - Pure hypercholesterolemia, unspecified Category: Medical Plan: Results of her labs done yesterday reviewed and discussed with patient - have advised patient that her cholesterol numbers have all improved slightly from previous Reinforced low cholesterol diet Continue Lovastatin 40 mg QD Will recheck her labs and fasting lipids in 4 months for follow-up (2) Type 2 diabetes mellitus with diabetic chronic kidney disease: Code(s): E11.22 - Type 2 diabetes mellitus with diabetic chronic kidney disease Category: Medical Qualifiers: Diabetes mellitus correction insulin use: without extermination inspector use Chronic kidney disease stage: stage 3 (moderate) Chronic kidney disease stage 3 subtype: stage 3a (GFR 45-59) Qualified Code(s): E11.21 - Type 2 diabetes mellitus with diabetic nephropathy; N18.31 - Chronic kidney disease, stage 3a Plan: Her in-office HgbA1c was at 5.7% when it was last checked back in April 2024 (her HgbA1c was previously at 6.0% a few months prior to that) - goal is at least <7.0% Reinforced diabetic diet Continue Jentadueto 2.5-500 mg BID (3) Chronic kidney disease (CKD), stage III (moderate): Code(s): N18.30 - Chronic kidney disease, stage 3 unspecified Category: Medical Qualifiers: Chronic kidney disease stage 3 subtype: stage 3a (GFR 45-59) Qualified Code(s): N18.31 - Chronic kidney disease, stage 3a Plan: Stable -? will continue to monitor her GFR and renal function regularly (4) Benign essential hypertension: Code(s): I10 - Essential (primary) hypertension Category: Medical Plan: Reinforced low sodium diet -? goal is systolic BP of at least 130 to 140 mm or less Continue Enalapril 2.5 mg QD (5) Acquired hypothyroidism: Code(s): E03.9 - Hypothyroidism, unspecified Category: Medical Plan: Patient's TFTs are back to normal on her recent labs and she is currently clinically euthyroid Continue Levothyroxine 100 mcg QD Will continue to monitor her TFTs regularly (6) High thyroid stimulating hormone (TSH) level: Code(s): R79.89 - Other specified abnormal findings of blood chemistry Category: Medical Plan: Resolved - her serum TSH level is back to normal on her recent labs TPO Ab also came back normal when recently checked Will continue monitoring her TFTs regularly (7) Iron deficiency anemia: Code(s): D50.9 - Iron deficiency anemia, unspecified Category: Medical Qualifiers: Iron deficiency anemia type: unspecified iron deficiency Qualified Code(s): D50.9 - Iron deficiency anemia, unspecified Plan: Corrected - her H/H have remained normal on her recent labs Continue Ferrous Sulfate 325 mg QD Will continue to monitor her CBC regularly (8) Asthma: Code(s): J45.909 - Unspecified asthma, uncomplicated Category: Medical Qualifiers: Asthma severity: mild Asthma persistence: intermittent Asthma complication type: uncomplicated Qualified Code(s): J45.20 - Mild intermittent asthma, uncomplicated Plan: Controlled Chest x-rays done back in December 2023 came back normal Continue Albuterol HFA 2 puffs 4 times a day as needed; she uses her nebulizer also on an as needed basis (9) Constipation: Code(s): K59.00 - Constipation, unspecified Category: Medical Qualifiers: Constipation type: unspecified constipation type Qualified Code(s): K59.00 - Constipation, unspecified Plan: Patient is encouraged again on increased oral fluids and dietary fiber Abdominal x-rays done back in January 2023 showed (+) mild to moderate stool burden Continue Miralax 17 gm at half dose daily or 17 gm every other day (patient had diarrhea in the past when she took it daily) and Senna 8.6 mg BID PRN (10) GERD (gastroesophageal reflux disease): Comment: EGD with Bx done on 03/29/2024 revealed (+) gastritis; negative for metaplasia or dysplasia Code(s): K21.9 - Gastro-esophageal reflux disease without esophagitis Category: Medical Qualifiers: Esophagitis presence: without esophagitis Qualified Code(s): K21.9 - Gastro-esophageal reflux disease without esophagitis Plan: Dietary restrictions reinforced She was referred to GI and had EGD with Bx done on 04/08/2024 - stomach noted to have diffuse erythema in the body consistent with gastritis Bx of the GE junction and antrum came back negative for H. pylori and negative for intestinal metaplasia and dysplasia Continue Omeprazole 20 mg QD Follow up with GI (Dr. Worthington) as scheduled (11) Lumbar degenerative disc disease: Code(s): M51.36 - Other intervertebral disc degeneration, lumbar region Category: Medical Qualifiers: Disc-related pain type: discogenic back pain only Qualified Code(s): M51.360 - Other intervertebral disc degeneration, lumbar region with discogenic back pain only Plan: Lumbar spine and hip x-rays done back in January 2023 revealed (+) multilevel mild lumbar spondylosis, with slight thoracolumbar levoscoliosis. There are mild degenerative changes noted in both hips as well Reinforced activity and weight lifting restrictions Continue Tramadol 50 mg Q 12 hours PRN for pain (12) Vitamin B12 deficiency: Code(s): E53.8 - Deficiency of other specified B group vitamins Category: Medical Plan: Continue Vitamin B12 500 mcg BIW Her dose was cut back at her last visit as her B12 level increased significantly to >1900 a few months ago; dose is now at 1666 (13) Vitamin D deficiency: Code(s): E55.9 - Vitamin D deficiency, unspecified Category: Medical Plan: Continue Vitamin D3 1000 units QD (14) Primary osteoarthritis, left shoulder: Code(s): M19.012 - Primary osteoarthritis, left shoulder Category: Medical Plan: States that Tramadol is helping to keep her shoulder pain manageable - takes it PRN only (15) Primary insomnia: Code(s): F51.01 - Primary insomnia Category: Medical Plan: Sleep hygiene reinforced Continue Trazodone 200 mg Q HS PRN (16) Depression: Code(s): F32.9 - Major depressive disorder, single episode, unspecified Category: Medical Qualifiers: Depression Type: major depressive disorder Major depression recurrence: recurrent Active/Remission status: currently active Major depression episode severity: unspecified Qualified Code(s): F33.9 - Major depressive disorder, recurrent, unspecified Plan: Continue Sertraline 100 mg 2 tablets QD Follow-up with Psychiatry as scheduled (17) Obesity (BMI 30-39.9): Code(s): E66.9 - Obesity, unspecified Category: Medical Plan: Reinforced diet/exercise as tolerated/lose weight Plan To return as scheduled in November 2024 for her annual physical examination Orders: Orders Lipid Panel 11/15/24 E78.00 - Pure hypercholesterolemia, unspecified, Z00.00 - Encounter for general adult medical examination without abnormal findings Free T4 (Free Thyroxine) 11/15/24 E03.9 - Hypothyroidism, unspecified, Z00.00 - Encounter for general adult medical examination without abnormal findings Vitamin B12 and Folate 11/15/24 E53.8 - Deficiency of other specified B group vitamins, Z00.00 - Encounter for general adult medical examination without abnormal findings Vitamin D 25-OH Total 11/15/24 E55.9 - Vitamin D deficiency, unspecified, Z00.00 - Encounter for general adult medical examination without abnormal findings Complete Blood Count Auto Diff 11/15/24 D64.9 - Anemia, unspecified, Z00.00 - Encounter for general adult medical examination without abnormal findings Comprehensive [place]. Panel Fast 11/15/24 E78.00 - Pure hypercholesterolemia, unspecified, Z00.00 - Encounter for general adult medical examination without abnormal findings Hemoglobin A1c 11/15/24 E11.21 - Type 2 diabetes mellitus with diabetic n ephropathy, N18.31 - Chronic kidney disease, stage 3a, Z00.00 - Encounter for general adult medical examination without abnormal findings Microalbumin, Random (w Creat) 11/15/24 E11.9 - Type 2 diabetes mellitus without complications, Z00.00 - Encounter for general adult medical examination without abnormal findings Thyroid Stimulating Hormone 11/15/24 E03.9 - Hypothyroidism, unspecified, Z00.00 - Encounter for general adult medical examination without abnormal findings UA CC w/rflx Micro + Cult 11/15/24 R30.0 - Dysuria, Z00.00 - Encounter for general adult medical examination without abnormal findings
--- OUTSIDE RECORDS SUMMARY | 2024-08-26 11:53 | XMS_ITS ---
Author Organization [facility] Address [address] [place] [address] Care Team Providers Care Black Studies Professor Name Role Phone Christofer TALAMANTES, Rahlu Primary Care Provider Remington Worthington Jr, Kwadwo Durant REASON FOR VISIT gerd,abdominal apin,wt loss,rectal pain Problems Problem Type SNOMED Code ICD Code Onset Dates Problem Status W/U Status Risk Notes Problem Gastro-esophagea l reflux disease without esophagitis ([id number]) Gastro-esophage al reflux disease without esophagitis (K21.9) Active confirmed Encounters Encounter Location Date Provider Diagnosis [facility] [address] [place], [place] [id number] 04/08/2024 Kwadwo Worthington Jr Rectal mass K62.9 [...] 09:20:00 AM, [address], [address], [place], [address], Progress Notes * CAMERON CURRIE GDOB:1950 (74 yo F)Acc No.[id number]:04/08/2024 EGD and COL/MAC Patient:?CAMERON CURRIE Provider:?Kwadwo Worthington MD :1950???Age:74 Y???Sex:Female D ate:04/08/2024 Address:[address] [place] [address] Pcp:Rahul Beaulieu MD Subjective: * Chief Complaints: * ???1. Gerd,abdominal apin,wt loss,rectal pain. * Medical History:? Objective: * Vitals:? Assessment: * Assessment: 1.?Rectal mass - K62.9 (Prim juice)???2.?Colon polyps - K63.5???3.?Gastro- esophageal reflux disease without esophagitis - K21.9???4.?Abdominal pain, generalized - R10.84??? Plan: * Treatment: * Procedure Codes:?00613 LESIO N REMOVAL COLONOSCOPY, 90717 UPPER GI ENDOSCOPY, BIOPSY * * The named appointment provid er may or may not be the originator of this progress note, and it is not deemed complete until electronically signed by the appointment provider. Sign off status: Pending * Provider:?Kwadwo Worthington MD Date:? Generated for Cassidy spain/Laura/eTransmitting on:?08/26/2024 11:52 AM EDT
--- OUTSIDE RECORDS SUMMARY | 2024-08-26 11:53 | XMS_ITS ---
Author Organization [facility] Address [address] [place] [id number] Care Team Providers Care Pyrotechnics Press Tender Name Role Phone Christofer TALAMANTES, Rahul Primary Care Provider Remington Worthington Jr, Kwadwo Durant [phone] REASON FOR VISIT Jendadueto Encounters Encounter Location Date Provider Diagnosis [facility] [address] [place] [id number] 03/10/2024 Kwadwo Worthington Jr Plan Of Treatment Next Appt Details Provider Name:Kwadwo euceda Jr, 10/08/2024 09:20:00 AM, [address], [address], [place], [address], Progress Notes * CAMERON CURRIE GDOB:1950 (73 yo F)Acc No.[id number]:03/10/2024 Patient:?CAMERON CURRIE :1950???Age:73 Y???Sex:Female Address:[address] [place] [id number] * true * Date:? Generated for Printi judit/Laura/eTransmitting on:?08/26/2024 11:53 AM EDT
--- OUTSIDE RECORDS SUMMARY | 2024-08-26 11:53 | XMS_ITS | Patient Health Record ---
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 Role Phone Christofer TALAMANTES, [place] Primary Care Provider Kwadwo Godfrey Jr Allergies Allergen (clinical drug ingredient) Drug/Non Drug Allergy documented on EMR Reaction Allergy Type Onset Date Status ibuprofen Ibuprofen Unknown Drug Allergy Active Results Component Value Reference Range Notes Glucose, Whole Blood Reviewed date:04/08/2024 01:59:29 PM Interpretation: Performing Lab:[facility], [address] [place] [phone] Notes/Report: Glucose, Whole Blood 117 60-115 mg/dL METER # : [id number] Pathology Reviewed date:04/11/2024 03:30:51 PM Interpretation: Performing Lab:[facility], [address] [place] [phone] Notes/Report: ------ Name: Cameron Currie Age/Sex: 74/F : 1950 Unit#: [id number] Attend Dr: Kwadwo Worthington MD Re04/08/24 Status : [facility] Location: [place] Disch: ------ SPEC : [id number] RECD : 04/08/24 STATUS: ISI MÉNDEZ NUM: [id number] BRUNA: 04/08/[address] [facility] [address]: Kwadwo Worthington MD ENTERED: 04/08/24 [...] Cameron Currie Age/Sex: 74/F : 1950 Unit#: [id number] Attend Dr: Kwadwo Worthington MD Re04/08/24 Status : [facility] Location: [place] Disch: ------ SPEC : [id number] RECD : 04/08/24 STATUS: ISAÍASAngelica DEV NUM: [id number] BRUNA: 04/08/[address] [facility] [address]: Kwadwo Worthington MD ENTERED: 04/08/24 SP TYPE: Surgical OTHR DR: Rahul Beaulieu MD ORDERED: HE Stain/9, Gross Micro L4/3, IHC, Special st. 2, H. pylori, AB/PAS Gross Description (Continued) Special studies orde red and performed: Immunostain for H. pylori on A1; AB/PAS stains on B1. Copies To: Rahul Beaulieu MD [facility] [address] [place], [place] [id number] Kwadwo Worthington MD [facility] [address] [place], [place] [id number] ------ Signed (signature on file) Jasmin Madhu [...] Problem Gastro-esophage al reflux disease without esophagitis (704249735) Gastro-esophageal reflux disease without esophagitis (K21.9) Active confirmed Problem 72526828 Weight loss (R63.4) Active confirmed Problem 681305315 Generalized abdominal pain (R10.84) Active confirmed Problem 07962870 Rectal pain (K62.89) Active confirmed Problem 24413818 Other iron deficiency anemia (D50.8) Active confirmed Problem 715060942 Gastroesophageal reflux disease, unspecified whether esophagitis present (K21.9) Active confirmed Vital Signs Temperature 97.3 degrees Fahrenheit 03/10/2024 Blood pressure diastolic 00 mm Hg 03/10/2024 Height 59.5 in 03/10/2024 Blood pressure systolic 000 mm Hg 03/10/2024 Weight 153 lbs 03/10/2024 BMI 30.38 kg/m2 03/10/2024 Encounters Encounter Location Date Provider Diagnosis [facility] Out[facility] [address] [place] [phone] 04/08/2024 Kwadwo Worthington Jr Rectal mass K62.9 ; Colon polyps K63.5 ; Gastro-esophageal reflux disease without esophagitis K21.9 and Abdominal pain, generalized R10.84 [facility] [address] [place] [phone] 03/10/2024 Kwadwo Worthington Jr Gastroesophageal reflux disease, unspecified whether esophagitis present K21.9 ; Generalized abdominal pain R10.84 ; Rectal pain K62.89 and Weight loss R63.4 [facility] [address] [place] [address] Drive [address] [place] [phone] 03/10/2024 Kwadwo Worthington Jr [facility] [address] [place] [address] Drive [address] [place] [phone] 04/11/2024 Kwadwo Worthington Jr Assessments Encounter Date [...] Name:Kwadwo euceda Jr, 10/08/2024 09:20:00 AM, [address], [address], [place], [address], Insurance Providers Payer Name Payer Address Payer Phone Subscriber Number Group Number Insured Name Patient Relationship to Insured Coverage Start Date Coverage End Date [facility] [address] [address] [place] [address] [id number] CAMERON CURRIE Self - patient is the insured MEDICAID OF [facility] [address] [place] [address] [id number] CAMERON CURRIE Self - patient is the insured Medical (General) History Medical History History ICD Code Colonoscopy 07/23, diverticulosis diabetes mellitus depression hypothyroidism asthma Chronic kidney disease stage III Carpal tunnel syndrome Gastroesophageal reflux disease Hyperlipidemia Surgical History Surgery Date(Month/Year) cyst removal carpal tunnel release-both wrist
--- OUTSIDE RECORDS SUMMARY | 2024-08-26 11:53 | XMS_ITS ---
Author Organization [facility] Address 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 Name Role Phone Christofer TALAMANTES, Rahul Primary Care Provider Remington Worthington Jr, Kwadwo Durant [phone] REASON FOR VISIT pathology Encounters Encounter Location Date Provider Diagnosis [facility] [address] [place] [address] 04/11/2024 Kwadwo Worthington Jr Plan Of Treatment Next Appt Details Provider Name:Kwadwo euceda Jr, 10/08/2024 09:20:00 AM, [address], [address], [place], [address], Progress Notes * CAMERON CURRIE GDOB:1950 (74 yo F)Acc No.[id number]:04/11/2024 Patient:?CAMERON CURRIE :1950???Age:74 Y???Sex:Female Address:[address] [place] [id number] * true * Date:? Generated for Sydnii judit/Laura/eTransmitting on:?08/26/2024 11:53 AM EDT
== END 2024-08-26 11:23 | disposition home or self-care (01) ==
LOC: HO.HMCH 10:38
PROVIDERS: PCP Internal Medicine; Visit Provider Internal Medicine
DX: I12.9 Hypertensive chronic kidney disease with stage 1 through stage 4 chronic kidney disease, or unspecified chronic kidney disease (principal); E11.21 Type 2 diabetes mellitus with diabetic nephropathy; N18.31 Chronic kidney disease, stage 3a; E78.00 Pure hypercholesterolemia, unspecified; E03.9 Hypothyroidism, unspecified; R79.89 Other specified abnormal findings of blood chemistry; D50.9 Iron deficiency anemia, unspecified; J45.20 Mild intermittent asthma, uncomplicated; K59.00 Constipation, unspecified; K21.9 Gastro-esophageal reflux disease without esophagitis; M51.360 Other intervertebral disc degeneration, lumbar region with discogenic back pain only; E53.8 Deficiency of other specified B group vitamins

== ENCOUNTER → 2024-08-26 10:37 | Outpatient (BNVA) | payer OTHER, SELFPAY | PROVIDERS: PCP Internal Medicine; Visit Provider Internal Medicine | DX: E78.00 Pure hypercholesterolemia, unspecified (principal); I12.9 Hypertensive chronic kidney disease with stage 1 through stage 4 chronic kidney disease, or unspecified chronic kidney disease; E11.22 Type 2 diabetes mellitus with diabetic chronic kidney disease; N18.31 Chronic kidney disease, stage 3a; E03.9 Hypothyroidism, unspecified; R79.89 Other specified abnormal findings of blood chemistry; J45.20 Mild intermittent asthma, uncomplicated; K21.9 Gastro-esophageal reflux disease without esophagitis; K59.00 Constipation, unspecified; M51.360 Other intervertebral disc degeneration, lumbar region with discogenic back pain only; E53.8 Deficiency of other specified B group vitamins; E55.9 Vitamin D deficiency, unspecified; F51.01 Primary insomnia; F33.9 Major depressive disorder, recurrent, unspecified; E66.9 Obesity, unspecified; Z68.32 Body mass index [BMI] 32.0-32.9, adult; Z71.3 Dietary counseling and surveillance | CPT/HCPCS: 96127; 99212 ==

== ENCOUNTER 2024-09-08 13:02 | Emergency (ER) | payer OTHER, SELFPAY ==
--- NOTE | ~2024-09-08 | CT_ITS ---
CLINICAL HISTORY: lower abdominal pain CT abdomen and pelvis with contrast Comparison: None Findings: No consolidation or effusion. Interstitial changes in lung bases. 4 mm calcification at the margin of the gallbladder fundus may represent an adherent stone. Gallbladder is somewhat distended and otherwise appears unremarkable. No inflammatory changes adjacent to the gallbladder. No biliary ductal dilatation. 3 mm hypodense round hepatic lesion too small to be fully characterized. The spleen and pancreas are unremarkable. Right adrenal is unremarkable. Left adrenal 1 cm mass which is nonspecific. 1.4 cm exophytic cortical cyst of upper pole right kidney. Enhancement of bilateral kidneys. No ureteral stones and no hydronephrosis or hydroureter. No perinephric stranding. No bowel obstruction, pneumoperitoneum, or pneumatosis. There is diverticulosis. No evidence of acute diverticulitis. No free fluid. Normal appendix. Uterus is present. Significant urinary bladder wall thickening with adjacent fat stranding suggestive of cystitis. Atherosclerotic vascular disease with no aneurysm of the abdominal aorta. No acute fracture. Degenerative changes of the spine. IMPRESSION: 1. Cystitis, correlate with urinalysis. No CT evidence of acute pyelonephritis. 2. Additional nonacute findings as described. This document has been electronically signed by: Yanci Hall MD on 09/08/2024 20:30:52
[2024-09-08 13:43] VITALS: BP 132/62; PULSE 86; RESP 18; TEMP 36.2; O2SAT 94; BMI 28.9
--- NOTE | 2024-09-08 13:45 | ED_ITS ---
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 Related Data Previous Rx's ?Medication ?Instructions ?Recorded fluticasone propionate 50 1 spray intranasal DAILY 30 days 06/24/20 mcg/actuation nasal #16 grams spray,suspension lidocaine 5 % topical patch 1 patch topical DAILY pain #30 ea 04/07/21 naproxen 500 mg tablet 500 mg PO BID PRN pain 30 days #60 05/13/21 tabs diclofenac sodium 1 % topical gel 4 g topical QID #100 grams 10/28/21 (Voltaren Arthritis Pain) cetirizine 10 mg tablet (Zyrtec) 10 mg PO DAILY PRN allergy 02/28/22 symptoms 90 days #90 tabs polyethylene glycol 3350 17 17 g PO DAILY constipation #510 01/10/23 gram/dose oral powder (Miralax) grams sennosides 8.6 mg capsule (senna) 8.6 mg PO BID PRN constipation #60 01/10/23 caps triamcinolone acetonide 0.5 % 1 appl topical BID PRN rash #30 05/04/23 topical cream grams cyanocobalamin (vitamin B-12) 500 500 mcg PO DAILY #90 tabs 10/01/23 mcg tablet ferrous sulfate 325 mg (65 mg 325 mg PO DAILY #90 tabs 01/01/24 iron) tablet enalapril maleate 2.5 mg tablet 2.5 mg PO DAILY 90 days #90 tabs 03/30/24 levothyroxine 100 mcg tablet 100 mcg PO DAILY 90 days #90 tabs 03/30/24 cholecalciferol (vitamin D3) 50 50 mcg PO DAILY 90 days #90 caps 04/11/24 mcg (2,000 unit) capsule linagliptin 2.5 mg-metformin 500 1 tab PO BID #180 tabs 04/11/24 mg tablet (Jentadueto) lovastatin 40 mg tablet 40 mg PO DAILY 90 days #90 tabs 04/11/24 sertraline 100 mg tablet 200 mg (2 x 100 mg) PO DAILY #180 06/30/24 tabs trazodone 100 mg tablet 200 mg (2 x 100 mg) PO BEDTIME PRN 06/30/24 insomnia 90 days #90 tabs omeprazole 20 mg capsule,delayed 20 mg PO DAILY 90 days #90 caps 08/24/24 release cephalexin 500 mg capsule 500 mg PO BID 7 days #14 caps 09/08/24 phenazopyridine 100 mg tablet 100 mg PO TID PRN dysuria 3 days 09/08/24 (Pyridium) #9 tabs tramadol 50 mg tablet 50 mg PO Q12H PRN pain 30 days #60 09/08/24 tabs Allergies Allergy/AdvReac Type Severity Reaction Status Date / Time ibuprofen [IBUPROFEN] Allergy Unknown swelling Verified 09/08/24 13:45 BuPROPion HCl Allergy Unknown unknown Uncoded 08/26/24 11:13 Cortisone Allergy Unknown Unknown Uncoded 08/26/24 11:13 Review of Systems Constitutional: Reports as per [facility] Past Medical History Medical History Lumbar degenerative disc disease Constipation Abdominal pain Menopause GERD (gastroesophageal reflux disease) Diabetes Cervical lymphadenitis Depression Low back pain Obesity (BMI 30-39.9) Primary insomnia Vitamin D deficiency Acquired hypothyroidism Primary osteoarthritis, left shoulder Asthma Vitamin B12 deficiency Iron deficiency anemia Benign essential hypertension Pure hypercholesterolemia Chronic kidney disease (CKD), stage III (moderate) Type 2 diabetes mellitus with diabetic chronic kidney disease Surgical History History of lipoma History of colonoscopy History of carpal tunnel release Family History Family History Father Advanced cardiac disease Diabetes Mother Lung cancer Family/Other Diabetes Hypertension High cholesterol Social History Social History Housing: House Alcohol intake: never Patient Tobacco Use Status: Former Tobacco user Tobacco use type: Cigarette Smoked in Last 30 Days: No e-Cigarette/Vaping Use: Never Used Second Hand Smoke Exposure: Yes Use of substances other than those prescribed or required for medical reasons: No Advance Directives: No Advance Directives Information Provided: No service: No Current occupational status: retired Cognitive needs: No Hearing needs: No Vision needs: Yes Physical Exam ED Vital Signs: Vital Signs - 24 hr 09/08/24 13:43 09/08/24 18:00 Temperature 97.2 F 98.4 F Pulse Rate 86 73 Respiratory Rate 18 14 Blood Pressure 132/62 133/64 Pulse Oximetry 94 97 Oxygen Delivery Method Room Air Room Air BMI result Body Mass Index 28.9 Const Other: * Gen: ?Overall well-appearing patient * HEENT: PERRLA, EOMI, MMM, * Neck: Supple, no LAD * CV: RRR, no obvious murmurs appreciated * Resp: ?No wheezing rales rhonchi no stridor moving air well * Abd: ?Bowel sounds are present, minimal suprapubic tenderness, no tenderness or guarding in the right or left lower quadrant tenderness in the right upper quadrant * Skin: Warm, dry, intact, * Neuro: ?Alert and oriented x3, moving upper and lower extremities symmetrically, no obvious facial asymmetry noted Course Course Course Narrative: This is an RME: Additional HPI, ROS, PE not included below will be deferred to primary provider. RME assessment and note performed by: Teetee Dennis PA-C This is a 32-ogit-ydj-female, with a hx of diabetes, depression, hypothyroidism, HTN, CKD stage 3, who presents to the ER with complaints of abdominal pain x 3 days. Reporting blood in her urine as well, with dysuria. Plan: Labs, UA, further ER eval needed Medical Decision Making Medical Decision Making MDM Narrative: Patient evaluated with urinary symptoms for the past 1 day, fairly benign abdominal exam I did not feel that she requires further imaging such as CT, overall blood work was reassuring, she has the baseline her renal function, she is nonfebrile, we will check urinalysis for UTI anticipating discharge when antibiotics. 19:20 patient states her pain is getting worse, she is having more tenderness, urine hematuria, some leukocytosis no bacteria, at this point we will medicate for pain and obtain imaging. Differential Diagnosis Differential Diagnoses: The differential diagnosis associated with the presentation includes Pyelonephritis, cystitis, diverticulitis, renal colic, SBO Admission/Observation Consideration of admission/observation: Escalation of care including admission/observation considered Lab Data MDM Lab Attestation statement: I reviewed the patient's lab results. 09/08/24 14:28 09/08/24 14:28 Labs: Lab Results 09/08/24 09/08/24 Range/Units 14:28 18:37 WBC 12.8 H (4.8-10.8) X10*3/uL RBC 4.14 L (4.20-5.50) X10*6/uL Hgb 12.5 (12.0-16.0) g/dl Hct 36.7 L (37.0-47.0) % MCV 88.6 (80.0-98.0) fL MCH 30.2 (27.0-33.0) pg MCHC 34.1 (31.0-35.0) g/dl RDW 13.2 (11.0-16.0) % Plt Count 201 (160-400) X10*3/uL MPV 8.9 L (9.4-12.3) fL Immature Gran % (Auto) 0.5 H (0.0-0.4) % Neut % (Auto) 68.9 (45-73) % Lymph % (Auto) 18.7 L (20-40) % Wilson % (Auto) 8.7 (2-11) % Eos % (Auto) 3.0 (0-4) % Baso % (Auto) 0.2 (0-2) % Lymph # (Auto) 2.4 (1.2-4.9) X10*3/uL Wilson # (Auto) 1.1 (0.1-1.2) X10*3/uL Eos # (Auto) 0.4 (0.0-0.4) X10*3/uL Baso # (Auto) 0.0 (0.0-0.2) X10*3/uL Abs Immat Gran (auto) 0.07 H (0.00-0.03) X10*3/uL Absolute Neuts (auto) 8.8 H (2.0-8.3) x10*3/uL Absolute Nucleated RBC 0.000 (0.0-0.012) X10*3/uL Nucleated RBC % (auto) 0.0 (0.0-0.2) /100WBC Sodium 140 (135-145) mmol/L Potassium 4.4 (3.3-5.1) mmol/L Chloride 106 (96-108) mmol/L Carbon Dioxide 27 (22-29) mmol/L Anion Gap 11 L (12-20) BUN 14 (9-16) mg/dL Creatinine 1.11 (0.5-1.4) mg/dL Estim Creat Clear Calc 38.0 Estimated GFR 48 Random Glucose 101 (60-115) mg/dL Calcium 9.3 D (8.4-10.2) mg/dL Total Bilirubin 0.2 (0.0-1.0) mg/dL Direct Bilirubin < 0.2 (0.0-0.5) mg/dL AST 26 (5-31) U/L ALT 16 (0-31) U/L Alkaline Phosphatase 41 (39-117) U/L Total Protein 7.4 (6.5-8.0) g/dL Albumin 4.6 (3.5-5.0) g/dL Lipase 103 H (8-78) U/L Urine Color Yellow Urine Appearance Clear Urine pH 8.0 (5.0-9.0) Ur Specific [place] 1.010 (1.005-1.025) Urine Protein 30 (1+) H (Neg-Trace) mg/dL Urine Glucose (UA) Negative (Negative) mg/dL Urine Ketones Negative (Negative) mg/dL Urine Blood Small (1+) H (Negative) Urine Nitrite Negative (Negative) Ur Leukocyte Esterase Small (1+) H (Negative) Urine RBC 11-20 H (0-2) /HPF Urine WBC 11-20 H (0-5) /HPF Ur Squamous Epith Cells 0-2 (0-2) /HPF Urine Bacteria None Seen (None Seen) Hyaline Casts 0-2 (0-2) /LPF Radiology Impression Discussion of test interpretation with radiology: I have reviewed the radiologist's reading. Radiologist Impression: IMPRESSION: 1. Cystitis, correlate with urinalysis. No CT evidence of acute pyelonephritis. 2. Additional nonacute findings as described. Medications Administered Discontinued Medications Generic Name Dose Route Start Last Admin Trade Name Freq PRN Reason Stop Dose Admin Sodium Chloride 1,000 mls @ 999 mls/hr 09/08/24 18:00 09/08/24 19:10 Ns IV 09/08/24 19:00 Infused .Q1H1M NAHUN Infusion Iohexol 85 ml 09/08/24 19:43 09/08/24 19:44 Iohexol 350 Mg/Ml 100 Ml Infus..Btl IV 09/08/24 19:44 85 ml ONCE ONE Administration Ketorolac Tromethamine 15 mg 09/08/24 17:57 09/08/24 18:13 Ketorolac Tromethamine 15 Mg/Ml Vial IVPUSH 09/08/24 17:58 15 mg ONCE ONE Administration Morphine Sulfate 4 mg 09/08/24 19:20 09/08/24 19:51 Morphine Sulfate 4 Mg/Ml Cartridge IVPUSH 09/08/24 19:21 4 mg ONCE ONE Administration Protocol Oxycodone HCl 5 mg 09/08/24 17:36 09/08/24 18:13 Oxycodone Hcl Immed Release 5 Mg Tablet PO 09/08/24 17:37 5 mg ONCE ONE Administration Discharge Plan Discharge Clinical Impression: Abdominal pain, suprapubic, Acute hemorrhagic cystitis Patient Disposition: Home, Self-Care Additional Instructions: Please take antibiotic, 1st dose given in the ER, thereafter continue for the next 5 days and if you continue having symptoms can extend another 2 days, Pyridium can turn your urine orange, and its use to help with burning when you urinate, follow up with the PCP worsening issues or concerns come back to the ER your blood work has been reassuring urine did show some blood and CAT scan showed evidence of cystitis or inflammation of the bladder. Prescriptions: New cephalexin 500 mg capsule 500 mg PO BID 7 Days Qty: 14 0RF phenazopyridine [Pyridium] 100 mg tablet 100 mg PO TID PRN (Reason: dysuria) 3 Days Qty: 9 0RF No Action cyanocobalamin (vitamin B-12) 500 mcg tablet 500 mcg PO DAILY Qty: 90 3RF ferrous sulfate 325 mg (65 mg iron) tablet 325 mg PO DAILY Qty: 90 3RF enalapril maleate 2.5 mg tablet 2.5 mg PO DAILY 90 Days Qty: 90 3RF levothyroxine 100 mcg tablet 100 mcg PO DAILY 90 Days Qty: 90 3RF Jentadueto 2.5-500 mg tablet 1 tab PO BID Qty: 180 1RF lovastatin 40 mg tablet 40 mg PO DAILY 90 Days Qty: 90 3RF cholecalciferol (vitamin D3) 50 mcg (2,000 unit) capsule 50 mcg PO DAILY 90 Days Qty: 90 3RF trazodone 100 mg tablet 200 mg PO BEDTIME PRN (Reason: insomnia) 90 Days Qty: 90 3RF sertraline 100 mg tablet 200 mg PO DAILY Qty: 180 1RF omeprazole 20 mg capsule,delayed release(DR/EC) 20 mg PO DAILY 90 Days Qty: 90 1RF tramadol 50 mg tablet 50 mg PO Q12H PRN (Reason: pain) 30 Days Qty: 60 2RF fluticasone propionate 50 mcg/actuation spray,suspension 1 spray intranasal DAILY 30 Days Qty: 16 0RF Rx Instructions: administer into each nostril lidocaine 5 % adhesive patch,medicated 1 patch topical DAILY Qty: 30 0RF Rx Instructions: leave on most painful area for up to 12 hrs diclofenac sodium [Voltaren Arthritis Pain] 1 % gel 4 g topical QID Qty: 100 0RF Rx Instructions: apply to single left shoulder at bedtime, after removing lidocaine patch. cetirizine [Zyrtec] 10 mg tablet 10 mg PO DAILY PRN (Reason: allergy symptoms) 90 Days Qty: 90 3RF triamcinolone acetonide 0.5 % cream 1 appl topical BID PRN (Reason: rash) Qty: 30 1RF senna 8.6 mg capsule 8.6 mg PO BID PRN (Reason: constipation) Qty: 60 0RF polyethylene glycol 3350 [Miralax] 17 gram/dose powder 17 g PO DAILY Qty: 510 0RF naproxen 500 mg tablet 500 mg PO BID PRN (Reason: pain) 30 Days Qty: 60 0RF Print Language: Thai
[2024-09-08 14:31] LABS: MANUAL DIFF FLAG NO
[2024-09-08 14:34] LABS: Basophils Percent Auto 0.2 % (0-2); Eosinophils Absolute Auto 0.4 X10*3/uL (0.0-0.4); Hematocrit 36.7 % (37.0-47.0); Hemoglobin 12.5 g/dl (12.0-16.0); Imm Gran Abs Auto 0.07 X10*3/uL (0.00-0.03); Imm Gran Pct Auto 0.5 % (0.0-0.4); Lymphocytes Absolute Auto 2.4 X10*3/uL (1.2-4.9); Lymphocytes Percent Auto 18.7 % (20-40); Mean Corpuscular HGB Conc 34.1 g/dl (31.0-35.0); Mean Corpuscular Hemoglobin 30.2 pg (27.0-33.0); Mean Corpuscular Volume 88.6 fL (80.0-98.0); Mean Platelet Volume 8.9 fL (9.4-12.3); Monocytes Absolute Auto 1.1 X10*3/uL (0.1-1.2); Monocytes Percent Auto 8.7 % (2-11); Neutrophils Absolute Auto 8.8 x10*3/uL (2.0-8.3); Neutrophils Percent Auto 68.9 % (45-73); Platelet Count 201 X10*3/uL (160-400); Red Blood Count 4.14 X10*6/uL (4.20-5.50); Red Cell Distribution Width 13.2 % (11.0-16.0); White Blood Count 12.8 X10*3/uL (4.8-10.8)
[2024-09-08 14:50] LABS: Alanine Aminotransferase 16 U/L (0-31); Albumin Level 4.6 g/dL (3.5-5.0); Alkaline Phosphatase 41 U/L (39-117); Anion Gap 11 (12-20); Aspartate Amino Transferase 26 U/L (5-31); Bilirubin Direct < 0.2 mg/dL (0.0-0.5); Bilirubin Total 0.2 mg/dL (0.0-1.0); Blood Urea Nitrogen 14 mg/dL (9-16); Calcium 9.3 mg/dL (8.4-10.2); Carbon Dioxide 27 mmol/L (22-29); Chloride 106 mmol/L (96-108); Estimated Glomerular Filt Rate 48; Glucose Random 101 mg/dL (60-115); Lipase 103 U/L (8-78); Potassium 4.4 mmol/L (3.3-5.1); Sodium 140 mmol/L (135-145); Total Protein 7.4 g/dL (6.5-8.0)
[2024-09-08 18:00] VITALS: BP 133/64; PULSE 73; RESP 14; TEMP 36.9; O2SAT 97
[2024-09-08] MEDS: oxyCODONE HCl Immed Release 5 MG TABLET PO (18:13)
[2024-09-08] MEDS: Ketorolac Tromethamine 15 MG/ML VIAL IVPUSH (18:13)
[2024-09-08] MEDS: 0.9 % Sodium Chloride 1,000 ML 999 ML IV (18:14)
[2024-09-08 18:42] LABS: Appearance Urine Clear; Color Urine Yellow; Glucose Urine UA Negative (Negative); Leukocyte Esterase Urine Small (1+) (Negative); Nitrite Urine Negative (Negative); UMIC TRIGGER UACC YES; Urine Blood Small (1+) (Negative); Urine Ketones Negative (Negative); Urine Protein 30 (1+) mg/dL (Neg-Trace)
[2024-09-08 18:47] LABS: Bacteria Urine None Seen (None Seen); Hyaline Casts Urine 0-2 /LPF (0-2); Squamous Epithelial Cell Urine 0-2 /HPF (0-2); UACC Culture Trigger YES
[2024-09-08] MEDS: iohexoL 350 MG/ML 100 ML INFUS..BTL 85 ML IV (19:44)
[2024-09-08] MEDS: Morphine Sulfate 4 MG/ML CARTRIDGE IVPUSH (19:51)
[2024-09-08] MEDS: cephALEXin 500 MG CAPSULE 1000 MG PO (21:27)
[2024-09-08 21:31] VITALS: BP 128/57; PULSE 70; RESP 14; TEMP 36.2; O2SAT 96
[2024-09-08 21:32] VITALS: BP 128/57; PULSE 70; RESP 14; TEMP 36.2; O2SAT 96
== END 2024-09-08 21:32 | disposition home or self-care (01) ==
PROVIDERS: Physician Assistant Medical; Emergency Provider Emergency Medicine; PCP Internal Medicine
DX: N30.00 Acute cystitis without hematuria (principal); R30.0 Dysuria; R35.0 Frequency of micturition; R11.0 Nausea; R10.2 Pelvic and perineal pain; Z79.899 Other long term (current) drug therapy
CPT/HCPCS: 36415; 74177; 80048; 80076; 81001; 83690; 85025; 87086; 96361; 96374; 96375; 99284; 99285; J1885; J2270; Q9967

== ENCOUNTER → 2024-09-08 19:19 | Outpatient (BNV) | payer OTHER, SELFPAY | PROVIDERS: Emergency Provider Emergency Medicine; PCP Internal Medicine; Visit Provider Specialist | DX: R10.30 Lower abdominal pain, unspecified (principal) | CPT/HCPCS: 74177 ==

== ENCOUNTER 2024-11-25 14:46 | Outpatient (AMB) | payer OTHER, SELFPAY ==
[2024-11-25 14:52] VITALS: BP 124/80; PULSE 76; O2SAT 96; BMI 28.3
--- NOTE | 2024-11-25 14:52 | MHC.PC.OV ---
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 Accompanied by: Self / Same As Patient Allergies ibuprofen (IBUPROFEN) Allergy (Unknown, Verified 11/25/24 15:33) swelling BuPROPion HCl Allergy (Unknown, Uncoded 11/25/24 15:33) unknown Cortisone Allergy (Unknown, Uncoded 11/25/24 15:33) Unknown Medication List - Last Reconciled 11/25/24 by Rahul Beaulieu MD cephalexin 500 mg PO BID 7 days cetirizine (Zyrtec) 10 mg PO DAILY PRN 90 days cholecalciferol (vitamin D3) 50 mcg PO DAILY 90 days cyanocobalamin (vitamin B-12) 500 mcg PO DAILY diclofenac sodium 1% (Voltaren Arthritis Pain) 4 grams topical QID enalapril maleate 2.5 mg PO DAILY 90 days ferrous sulfate 325 mg PO DAILY fluticasone propionate 50 mcg/actuation 1 spray intranasal DAILY 30 days levothyroxine 100 mcg PO DAILY 90 days lidocaine 5% 1 patch topical DAILY linagliptin-metformin 2.5-500 mg (Jentadueto) 1 tab PO BID lovastatin 40 mg PO DAILY 90 days naproxen 500 mg PO BID PRN 30 days omeprazole 20 mg PO DAILY 90 days phenazopyridine (Pyridium) 100 mg PO TID PRN 3 days polyethylene glycol 3350 (Miralax) 17 grams PO DAILY sennosides (senna) 8.6 mg PO BID PRN sertraline 200 mg (2 x 100 mg) PO DAILY tramadol 50 mg PO Q12H PRN 30 days trazodone 200 mg (2 x 100 mg) PO BEDTIME PRN 90 days triamcinolone acetonide 0.5% 1 appl topical BID PRN Tobacco use date assessed: 11/25/24 Fall risk assessment: No Falls in past year Last assessed Fall Risk: 11/25/24 Dental Screening Dental Screen Date: 11/25/24 Did you have a dental visit in the last 12 months?: No Did you have a dental problem in the last 6 months where you did not have access to dental care?: No Was dental information given to patient?: No HPI annual exam - see comments HPI Details Patient comes in today for her annual physical examination States that she currently feels okay She went to the ER a couple of months ago for lower abdominal pain - was diagnosed with hemorrhagic cystitis She was sent home with Rx for oral Cephalexin - patient states that her symptoms gradually improved with Tx and she's had no other issues or problems since She denies any headaches or dizziness Denies any chest pains, no SOB No nausea/vomiting, no abdominal pain No change in bowel habits noted She denies any acute urinary symptoms lately She has no follow up labs done presently but did go for labs just after her last visit in August 2024 Her annual mammogram was last done in 02/2023 and she is now overdue for her repeat Her screening colonoscopy was last done on 04/08/[address] Worthington - (+) polyp that came out as a tubular adenoma on pathology; would recommend she get a repeat colonoscopy at least one more time in 5 years States that she has not had her yearly gynecology exam and pap smear done in a few years now and at her age, she does not wish to continue to keep up with those Her BMD was last done on 01/06/2021 (normal) and she is now due for repeat BMD PENDING SALE TO [facility] Medical History Lumbar degenerative disc disease Constipation Abdominal pain Menopause GERD (gastroesophageal reflux disease) Diabetes Cervical lymphadenitis Depression Low back pain Obesity (BMI 30-39.9) Primary insomnia Vitamin D deficiency Acquired hypothyroidism Primary osteoarthritis, left shoulder Asthma Vitamin B12 deficiency Iron deficiency anemia Benign essential hypertension Pure hypercholesterolemia Chronic kidney disease (CKD), stage III (moderate) Type 2 diabetes mellitus with diabetic chronic kidney disease Surgical History History of lipoma History of colonoscopy History of carpal tunnel release Family History Father Advanced cardiac disease Diabetes Mother Lung cancer Family/Other Diabetes Hypertension High cholesterol Social History Housing: House Alcohol intake: never Patient Tobacco Use Status: Former Tobacco user Tobacco use type: Cigarette e-Cigarette/Vaping Use: Never Used Second Hand Smoke Exposure: Yes service: No Current occupational status: retired Cognitive needs: No Hearing needs: No Vision needs: Yes Questionnaire PHQ-9 Over the last 2 weeks, how often have you been bothered by any of the following problems? 1. Little interest or pleasure in doing things: nearly every day 2. Feeling down, depressed, or hopeless: not at all 3. Trouble falling or staying asleep, or sleeping too much: not at all 4. Feeling tired or having little energy: not at all 5. Poor appetite or overeating: not at all 6. Feeling bad about yourself - or that you are a failure or have let yourself or your family down: not at all 7. Trouble concentrating on things, such as reading the newspaper or watching television: several days 8. Moving or speaking so slowly that other people could have noticed. Or the opposite - being so fidgety or restless that you have been moving around a lot more than usual: several days 9. Thoughts that you would be better off or of hurting yourself in some way: more than half the days Total score: 7 Depression Screening Interpretation: Positive Depression Screening Follow-up: Existing condition and In treatment Depression Screening Done: Yes 58117 - PHQ-9 Billing: Yes Source: Developed by Drs. Eligio Cox, Viry Guevara, Vishal Quinteros and colleagues, with an educational carolin from [employer]. Thrive Questionnaire Date Thrive assessed: 11/25/24 I am a: Patient What is your living situation today?: I choose not to answer this question Within the past 12 months, did the food you bought not last and you didn't have the money to get more?: I choose not to answer this question Within the past 12 months, did you worry whether your food would run out before you got money to buy more?: I choose not to answer this question Do you have trouble paying for medicines?: I choose not to answer this question Do you have trouble getting transportation to medical appointments?: I choose not to answer this question Do you have trouble paying your heating and electricity bill?: I choose not to answer this question Do you have trouble taking care of your child, family member or friend?: I choose not to answer this question Do you have trouble with day-to-day activities such as bathing, preparing meals, shopping, managing finances, etc.?: I choose not to answer this question Are you currently unemployed and looking for a job?: I choose not to answer this question Are you interested in more education?: I choose not to answer this question Please select the resources that you would like help with: None Currently or been in a relationship where the following occur: I choose not to answer THRIVE Score: 0 AUDIT C Alcohol Use Questionnaire (AUDIT-C) 1. How often do you have a drink containing alcohol?: Never 3. How often do you have six or more drinks on one occasion?: Never Total Score: 0 Score Reviewed/Action Taken: Yes ARNOLDO-7 AMB Questionnaire ARNOLDO-7 Date ARNOLDO - 7 assessed: 11/25/24 Feeling nervous, anxious, or on edge: 1 = Several days Not being able to stop or control worryin = Several days Worrying too much about different things: 1 = Several days Trouble relaxin = Several days Being so restless that it is hard to sit still: 1 = Several days Becoming easily annoyed or irritable: 1 = Several days Feeling afraid as if something awful might happen: 1 = Several days Total ARNOLDO-7 score (0-4 normal; 5-9 mild; 10-14 moderate; 15-21 severe): 7 Source: Developed by Drs. Eligio Cox, Viry Guevara, Vishal Quinteros and colleagues, with an educational carolin from [employer]. Review of Systems Const Denies chills, Denies fatigue, Denies fever(s), Denies headache(s) and Denies malaise Eyes Denies blurry vision, Denies change in vision, Denies irritation and Denies itchy eyes ENT Denies dysphagia, Denies dizziness, Denies otalgia, Denies headache(s), Denies nasal congestion, Denies neck pain, Denies odynophagia, Denies sinus pain and Denies sore throat Card Denies chest pain, Denies rapid heart rate, Denies irregular heart rhythm, Denies palpitations and Denies dyspnea Resp Denies chest congestion, Denies cough, Denies dyspnea and Denies wheezing GI Denies abdominal pain, Denies bloating, Denies constipation, Denies dysphagia, Denies heartburn, Denies diarrhea, Denies nausea, Denies odynophagia and Denies vomiting Denies hematuria, Denies urinary frequency, Denies dysuria, Denies urinary incontinence and Denies urinary urgency Musc Denies back pain, Denies arthralgias, Denies joint swelling, Denies muscle weakness and Denies neck pain Skin/Breast Denies breast pain, Denies breast mass, Denies change in pigmentation, Denies lesions, Denies rash and Denies unusual bruising Neuro Denies dizziness, Denies headache(s) and Denies paresthesias Psych Denies anxiety and Denies depression Endo Denies fatigue and Denies palpitations Venkat/Lymph Denies easy bruising Aller/Immun Denies itchy eyes and Denies wheezing Physical exam (Primary Care) Vital Signs: Last Vital Signs Pulse 76 11/25/24 14:52 BP 124/80 11/25/24 14:52 Pulse Ox 96 11/25/24 14:52 Oxygen Delivery Method Room Air 11/25/24 14:52 BMI result Body Mass Index 28.3 Tobacco/Smoking Status: Tobacco use Status Tobacco use date assessed 11/25/24 11/25/24 14:58 Patient Tobacco Use Status Former Tobacco user 11/25/24 14:58 Tobacco use type Cigarette 11/25/24 14:58 e-Cigarette/Vaping Use Never Used 11/25/24 14:58 PHQ-9: PHQ-9 Score PHQ-9: Total score 7 11/25/24 15:41 Depression Screening Interpretation: Positive Depression Screening Follow-up: Existing condition and In treatment Thrive Assessment: Date of Thrive Assessment Date Thrive assessed 11/25/24 11/25/24 14:58 Currently or been in a relationship where the following occur: I choose not to answer Const General: no acute distress, alert and awake Orientation/consciousness: patient oriented x3 HENMT Head: Yes normocephalic and Yes atraumatic Ears: external ears normal, TM's normal bilaterally and EAC's normal General nose exam: No nasal discharge present Face and sinus: Yes normal facial exam and Yes sinuses nontender Teeth and gingiva: dentition normal Throat: Yes posterior oropharynx normal and Yes tonsils normal (no TP congestion) Eyes Eyelids: Yes eyelids normal Conjunctivae: conjunctivae normal Pupils: Equal, round and reactive pupils present EOM: EOMs intact bilaterally Neck Neck: Yes no lymphadenopathy and Yes supple Thyroid: Thyroid normal Resp Auscultation: clear to auscultation bilaterally, no rales and no wheezes Cardio Rate: regular rate Rhythm: regular rhythm Heart sounds: no murmurs GI Palpation (GI): Soft to palpation, nontender and No hepatosplenomegaly present Auscultation: normal bowel sounds General: Yes no CVA tenderness Back/Spine/Pelvis Back: no CVA tenderness Thoracic/Lumbar Spine: thoracic and lumbar spine normal to inspection Skin Lesions: no lesions Rashes: no rashes Neuro General: patient oriented x3, moves all extremities, no focal motor deficits and CN's II-XI intact bilaterally Cranial nerves: Yes Equal, round and reactive pupils present Cognition (Neuro): normal cognition Gait exam (Neuro): Normal gait present Extrem General: Yes no clubbing, cyanosis or edema Results Reviewed Results Reviewed: Laboratory Tests 04/25/24 08/25/24 09/08/24 10:56 07:40 14:28 WBC 12.8 H Hgb 12.5 Hct 36.7 L Plt Count 201 Sodium 140 Potassium 4.4 Creatinine 1.11 Estimated GFR 48 Random Glucose 101 Fasting Glucose 108 H Hgb A1c (Clinic) 5.7 Calcium 9.3 D AST 26 ALT 16 Triglycerides 123 Cholesterol 185 LDL Cholesterol, Calc 102 H HDL Cholesterol 59 Lipase 103 H Vitamin B12 1666 H 25-OH Vitamin D Total 64.2 TSH 0.76 Free T4 1.02 Ur Specific [place] Urine Protein Urine Glucose (UA) Urine Blood Urine Nitrite Ur Leukocyte Esterase 09/08/24 18:37 WBC Hgb Hct Plt Count Sodium Potassium Creatinine Estimated GFR Random Glucose Fasting Glucose Hgb A1c (Clinic) Calcium AST ALT Triglycerides Cholesterol LDL Cholesterol, Calc HDL Cholesterol Lipase Vitamin B12 25-OH Vitamin D Total TSH Free T4 Ur Specific [place] 1.010 Urine Protein 30 (1+) H Urine Glucose (UA) Negative Urine Blood Small (1+) H Urine Nitrite Negative Ur Leukocyte Esterase Small (1+) H Coding Level of Care Code Est Pt Prev Care >65y(20828) Diagnoses Annual physical exam Z00.00 Pure hypercholesterolemia E78.00 Type 2 diabetes mellitus with stage 3a chronic kidney disease, without long-term current use of insulin E11.21; N18.31 Chronic kidney disease stage: stage 3 (moderate) Chronic kidney disease stage 3 subtype: stage 3a (GFR 45-59) 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: without half-way use Stage 3a chronic kidney disease N18.31 Chronic kidney disease stage 3 subtype: stage 3a (GFR 45-59) Benign essential hypertension I10 Acquired hypothyroidism E03.9 Iron deficiency anemia, unspecified iron deficiency anemia type D50.9 Iron deficiency anemia type: unspecified iron deficiency Mild intermittent asthma without complication J45.20 Asthma complication type: uncomplicated Asthma persistence: intermittent Asthma severity: mild Constipation, unspecified constipation type K59.00 Constipation type: unspecified constipation type Gastroesophageal reflux disease without esophagitis K21.9 Esophagitis presence: without esophagitis Degeneration of intervertebral disc of lumbar region with discogenic back pain M51.360 Disc-related pain type: discogenic back pain only Vitamin B12 deficiency E53.8 Vitamin D deficiency E55.9 Primary osteoarthritis, left shoulder M19.012 Primary insomnia F51.01 Episode of recurrent major depressive disorder, unspecified depression episode severity F33.9 Active/Remission status: currently active Depression Type: major depressive disorder Major depression episode severity: unspecified Major depression recurrence: recurrent Obesity (BMI 30-39.9) E66.9 Breast cancer screening by mammogram Z12.31 Osteoporosis screening Z13.820 Additional Codes PHQ-9 - 03395 - PHQ-9 Billing: Yes ([id number]) Assessment & Plan Assessment & Plan (1) Annual physical exam: Code(s): Z00.00 - Encounter for general adult medical examination without abnormal findings Category: Medical Plan: Results of her labs done over the past few months reviewed and discussed with patient Her annual mammogram was last done in 02/2023 and she is now overdue for her repeat Her screening colonoscopy was last done on 04/08/[address] Worthington - (+) polyp that came out as a tubular adenoma on pathology; would recommend she get a repeat colonoscopy at least one more time in 5 years (2028) States that she has not had her yearly gynecology exam and pap smear done in a few years now and at her age, she does not wish to continue to keep up with those Her BMD was last done on 01/06/2021 (normal) and she is now due for repeat BMD (2) Pure hypercholesterolemia: Code(s): E78.00 - Pure hypercholesterolemia, unspecified Category: Medical Plan: Her cholesterol numbers when last checked in August 2024 have all improved slightly from her previous numbers Reinforced low cholesterol diet Continue Lovastatin 40 mg QD Will recheck her labs and fasting lipids in 4 months for follow-up (3) Type 2 diabetes mellitus with diabetic chronic kidney disease: Code(s): E11.22 - Type 2 diabetes mellitus with diabetic chronic kidney disease Category: Medical Qualifiers: Chronic kidney disease stage: stage 3 (moderate) Chronic kidney disease stage 3 subtype: stage 3a (GFR 45-59) 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: without half-way use Qualified Code(s): E11.21 - Type 2 diabetes mellitus with diabetic nephropathy; N18.31 - Chronic kidney disease, stage 3a Plan: Her in-office HgbA1c was at 5.7% when it was last checked back in April 2024 (her HgbA1c was previously at 6.0% a few months prior to that) - goal is at least <7.0% Reinforced diabetic diet Continue Jentadueto 2.5-500 mg BID Will also refer her to ophthalmology for her annual diabetic eye exam (4) Chronic kidney disease (CKD), stage III (moderate): Code(s): N18.30 - Chronic kidney disease, stage 3 unspecified Category: Medical Qualifiers: Chronic kidney disease stage 3 subtype: stage 3a (GFR 45-59) Qualified Code(s): N18.31 - Chronic kidney disease, stage 3a Plan: Stable -? will continue to monitor her GFR and renal function regularly (5) Benign essential hypertension: Code(s): I10 - Essential (primary) hypertension Category: Medical Plan: Reinforced low sodium diet -? goal is systolic BP of at least 130 to 140 mm or less Continue Enalapril 2.5 mg QD (6) Acquired hypothyroidism: Code(s): E03.9 - Hypothyroidism, unspecified Category: Medical Plan: Patient's TFTs were normal when they were most recently checked in August 2024; she is currently clinically euthyroid Continue Levothyroxine 100 mcg QD Will continue to monitor her TFTs regularly (7) Iron deficiency anemia: Code(s): D50.9 - Iron deficiency anemia, unspecified Category: Medical Qualifiers: Iron deficiency anemia type: unspecified iron deficiency Qualified Code(s): D50.9 - Iron deficiency anemia, unspecified Plan: Corrected - her H/H have remained normal on her recent labs Continue Ferrous Sulfate 325 mg QD Will continue to monitor her CBC regularly (8) Asthma: Code(s): J45.909 - Unspecified asthma, uncomplicated Category: Medical Qualifiers: Asthma complication type: uncomplicated Asthma persistence: intermittent Asthma severity: mild Qualified Code(s): J45.20 - Mild intermittent asthma, uncomplicated Plan: Controlled Chest x-rays done back in December 2023 came back normal Continue Albuterol HFA 2 puffs 4 times a day as needed; she uses her nebulizer also on an as needed basis (9) Constipation: Code(s): K59.00 - Constipation, unspecified Category: Medical Qualifiers: Constipation type: unspecified constipation type Qualified Code(s): K59.00 - Constipation, unspecified Plan: Patient is encouraged again on increased oral fluids and dietary fiber intake Abdominal x-rays done back in January 2023 showed (+) mild to moderate stool burden Continue Miralax 17 gm at half dose daily or 17 gm every other day (patient had diarrhea in the past when she took it daily) and Senna 8.6 mg BID PRN (10) GERD (gastroesophageal reflux disease): Comment: EGD with Bx done on 03/29/2024 revealed (+) gastritis; negative for metaplasia or dysplasia Code(s): K21.9 - Gastro-esophageal reflux disease without esophagitis Category: Medical Qualifiers: Esophagitis presence: without esophagitis Qualified Code(s): K21.9 - Gastro-esophageal reflux disease without esophagitis Plan: Dietary restrictions reinforced She was referred to GI and had EGD with Bx done on 04/08/2024 - stomach noted to have diffuse erythema in the body consistent with gastritis Bx of the GE junction and antrum came back negative for H. pylori and negative for intestinal metaplasia and dysplasia Continue Omeprazole 20 mg QD Follow up with GI (Dr. Worthington) as scheduled (11) Lumbar degenerative disc disease: Code(s): M51.36 - Other intervertebral disc degeneration, lumbar region Category: Medical Qualifiers: Disc-related pain type: discogenic back pain only Qualified Code(s): M51.360 - Other intervertebral disc degeneration, lumbar region with discogenic back pain only Plan: Lumbar spine and hip x-rays done back in January 2023 revealed (+) multilevel mild lumbar spondylosis, with slight thoracolumbar levoscoliosis. There are mild degenerative changes noted in both hips as well Reinforced activity and weight lifting restrictions Continue Tramadol 50 mg Q 12 hours PRN for pain (12) Vitamin B12 deficiency: Code(s): E53.8 - Deficiency of other specified B group vitamins Category: Medical Plan: Continue Vitamin B12 500 mcg BIW Her dose was cut back at her last visit as her B12 level increased significantly to >1900 a few months ago; dose is now at 1666 (13) Vitamin D deficiency: Code(s): E55.9 - Vitamin D deficiency, unspecified Category: Medical Plan: Continue Vitamin D3 1000 units QD (14) Primary osteoarthritis, left shoulder: Code(s): M19.012 - Primary osteoarthritis, left shoulder Category: Medical Plan: States that Tramadol is helping to keep her shoulder pain manageable - takes it PRN only (15) Primary insomnia: Code(s): F51.01 - Primary insomnia Category: Medical Plan: Sleep hygiene reinforced Continue Trazodone 200 mg Q HS PRN (16) Depression: Code(s): F32.9 - Major depressive disorder, single episode, unspecified Category: Medical Qualifiers: Active/Remission status: currently active Depression Type: major depressive disorder Major depression episode severity: unspecified Major depression recurrence: recurrent Qualified Code(s): F33.9 - Major depressive disorder, recurrent, unspecified Plan: Continue Sertraline 100 mg 2 tablets QD Follow-up with Psychiatry as scheduled (17) Obesity (BMI 30-39.9): Code(s): E66.9 - Obesity, unspecified Category: Medical Plan: Reinforced diet/exercise as tolerated/lose weight (18) Breast cancer screening by mammogram: Code(s): Z12.31 - Encounter for screening mammogram for malignant neoplasm of breast Category: Medical Plan: Will send patient for her annual mammogram KAY (19) Osteoporosis screening: Code(s): Z13.820 - Encounter for screening for osteoporosis Category: Medical Plan: Will send patient for repeat BMD for follow up - her previous BMD in 2020 came out normal Plan Follow up in 4 months Orders: Orders XR DEXA axial skeleton 11/25/24 Z78.0 - Asymptomatic menopausal state Lipid Panel 4 Months E78.00 - Pure hypercholesterolemia, unspecified Microalbumin, Random (w Creat) 4 Months E11.9 - Type 2 diabetes mellitus without complications MM tomosynthesis screening BI 11/25/24 Z12.31 - Encounter for screening mammogram for malignant neoplasm of breast Complete Blood Count Auto Diff 4 Months D64.9 - Anemia, unspecified Comprehensive [place]. Panel Fast 4 Months E78.00 - Pure hypercholesterolemia, unspecified Hemoglobin A1c 4 Months E11.9 - Type 2 diabetes mellitus without complications Referrals Ophthalmology Referral E11.21 - Type 2 diabetes mellitus with diabetic nephropathy, N18.31 - Chronic kidney disease, stage 3a
--- OUTSIDE RECORDS SUMMARY | 2024-11-25 16:10 | XMS_ITS | Patient Health Record ---
Author Organization [facility] Address [address] [place] [address] Care Team Providers Care Justice Court Judge Name Role Phone Christofer TALAMANTES, Rahul Primary Care Provider Kwadwo Godfrey Jr Unavailable [phone] Allergies Allergen (clinical drug ingredient) Drug/Non Drug Allergy documented on EMR Reaction Allergy Type Onset Date Status ibuprofen Ibuprofen Unknown Drug Allergy Active Results Component Value Reference Range Notes Glucose, Whole Blood Reviewed date:04/08/2024 01:59:29 PM Interpretation: Performing Lab:[facility], [address] [place] [id number] Notes/Report: Glucose, Whole Blood 117 60-115 mg/dL METER # : [id number] Pathology Reviewed date:04/11/2024 03:30:51 PM Interpretation: Performing Lab:[facility], [address] [place] [phone] Notes/Report: Reason For Referral No Information Medications Medication [...] Problem Gastro-esophage al reflux disease without esophagitis (521499561) Gastro-esophageal reflux disease without esophagitis (K21.9) Active confirmed Problem 32287832 Weight loss (R63.4) Active confirmed Problem 318723241 Generalized abdominal pain (R10.84) Active confirmed Problem 41575334 Rectal pain (K62.89) Active confirmed Problem 03201317 Other iron deficiency anemia (D50.8) Active confirmed Problem 633504343 Gastroesophageal reflux disease, unspecified whether esophagitis present (K21.9) Active confirmed Vital Signs Temperature 97.3 degrees Fahrenheit 03/10/2024 Blood pressure diastolic 00 mm Hg 03/10/2024 Height 59.5 in 03/10/2024 Blood pressure systolic 000 mm Hg 03/10/2024 Weight 153 lbs 03/10/2024 BMI 30.38 kg/m2 03/10/2024 Encounters Encounter Location Date Provider Diagnosis [facility] [address] [place] [id number] 04/08/2024 Kwadwo Worthington Jr Rectal mass K62.9 ; Colon polyps K63.5 ; Gastro-esophageal reflux disease without esophagitis K21.9 and Abdominal pain, generalized R10.84 [facility] [address] [place] [phone] 03/10/2024 Kwadwo Worthington Jr Gastroesophageal reflux disease, unspecified whether esophagitis present K21.9 ; Generalized abdominal pain R10.84 ; Rectal pain K62.89 [address] [facility] [address] [place] [phone] 03/10/[address] [facility] [address] [place] [phone] 04/11/[address] [facility] [address] [place] [phone] 10/08/2024 Kwadwo Worthington Jr Assessments Encounter Date Diagnosis [...] 05/26/2015 UPPER GI ENDOSCOPY 03/10/2024 COLONOSCOPY 03/10/2024 Insurance Providers Payer Name Payer Address Payer Phone Subscriber Number Group Number Insured Name Patient Relationship to Insured Coverage Start Date Coverage End Date [facility] [address] [address] [place] [phone] [id number] [place] Self - patient is the insured MEDICAID OF [facility] [address] [place] [address] [id number] [employer] Self - patient is the insured Medical (General) History Medical History History ICD Code Colonoscopy 07/23, diverticulosis diabetes mellitus depression hypothyroidism asthma Chronic kidney disease stage III Carpal tunnel syndrome Gastroesophageal reflux disease Hyperlipidemia Surgical History Surgery Date(Month/Year) cyst removal carpal tunnel release-both wrist
== END 2024-11-25 15:35 | disposition home or self-care (01) ==
LOC: HO.HMCH 14:47
PROVIDERS: PCP Internal Medicine; Visit Provider Internal Medicine
DX: Z00.00 Encounter for general adult medical examination without abnormal findings (principal); I12.9 Hypertensive chronic kidney disease with stage 1 through stage 4 chronic kidney disease, or unspecified chronic kidney disease; E11.21 Type 2 diabetes mellitus with diabetic nephropathy; N18.31 Chronic kidney disease, stage 3a; E78.00 Pure hypercholesterolemia, unspecified; E03.9 Hypothyroidism, unspecified; D50.9 Iron deficiency anemia, unspecified; J45.20 Mild intermittent asthma, uncomplicated; K59.00 Constipation, unspecified; K21.9 Gastro-esophageal reflux disease without esophagitis; M51.360 Other intervertebral disc degeneration, lumbar region with discogenic back pain only; E53.8 Deficiency of other specified B group vitamins

== ENCOUNTER → 2024-11-25 14:46 | Outpatient (BNVA) | payer OTHER, SELFPAY | PROVIDERS: PCP Internal Medicine; Visit Provider Internal Medicine | DX: Z00.00 Encounter for general adult medical examination without abnormal findings (principal); E78.00 Pure hypercholesterolemia, unspecified; I12.9 Hypertensive chronic kidney disease with stage 1 through stage 4 chronic kidney disease, or unspecified chronic kidney disease; E11.22 Type 2 diabetes mellitus with diabetic chronic kidney disease; N18.31 Chronic kidney disease, stage 3a; E11.21 Type 2 diabetes mellitus with diabetic nephropathy; E03.9 Hypothyroidism, unspecified; R79.89 Other specified abnormal findings of blood chemistry; D50.9 Iron deficiency anemia, unspecified; J45.20 Mild intermittent asthma, uncomplicated; K59.00 Constipation, unspecified; K21.9 Gastro-esophageal reflux disease without esophagitis; E55.9 Vitamin D deficiency, unspecified; E53.8 Deficiency of other specified B group vitamins; M19.012 Primary osteoarthritis, left shoulder; F51.01 Primary insomnia; F33.9 Major depressive disorder, recurrent, unspecified; E66.9 Obesity, unspecified; Z68.28 Body mass index [BMI] 28.0-28.9, adult; Z71.3 Dietary counseling and surveillance | CPT/HCPCS: 96127; 99397 ==